=== PATIENT | female | born 1935 | race Caucasian/White ===

== ENCOUNTER → 2016-10-10 | Outpatient (CLI) | payer OTHER, MEDICARE ==
[2016-06-04 08:11] VITALS: BP 130/72
--- NOTE | 2016-10-12 17:36 | MRI ---
Lumbar spine MRI without contrast: Indication: Intravertebral disk disorder, left-sided low back pain with numbness and tingling. Comparison: Lumbar spine MRI dated March 16, 2014. Technique: Multiplanar, multi sequence MR imaging of the lumbar spine was performed without the use of contrast. Findings: No acute malalignment or acute skeletal abnormality is identified. A subtle L4-L5 anteroli sthesis is unchanged . The patient is again noted to be status post posterior fusion extending from L3 through L5. Susceptibility artifact from the hardware mildly limits evaluation. No worrisome bone marrow signal abnormality is identified. The conus is of normal signal and termina shaina at a normal level. Except for expected postoperative changes, the paravertebral soft tissues are unremarkable. T12-L1: Mild bilateral facet arthrosis. Otherwise, within normal limits. L1-L2: Interval worsening of severe degenerative disc disease. In combination with facet arthrosis a nd ligamentum flavum hypertrophy, this results in mild canal stenosis and moderate right neural fora emil narrowing. Mild left neural foraminal narrowing is present as well. L2-L3: Severe disk desiccation noted. There is also severe bilateral facet arthrosis. This is greate r on the left, where it contributes to mild canal stenosis and moderate neural foraminal narrowing. L3-L4: There is moderate to severe bilateral facet arthrosis without significant canal stenosis. No neural foraminal narrowing. L4-L5: There is moderate bilateral facet arthrosis, resulting in mild canal stenosis. There is no si gnificant neural foraminal narrowing. L5-S1: There is minimal bilateral facet arthrosis. No canal or neural foraminal narrowing is identif ied. Impression: Interval worsening of degenerative change at L1-L2 and L2-L3, resulting in mild canal st enosis and moderate areas of neural foraminal narrowing, detailed above. Reported By:
== END ==
LOC: RAD 13:01
PROVIDERS: ATTEND Internal Medicine
DX: M51.17 Intervertebral disc disorders with radiculopathy, lumbosacral region (principal)
CPT/HCPCS: 72148

== ENCOUNTER 2016-12-16 11:56 | Emergency (ER) | payer OTHER, MEDICARE ==
--- NOTE | 2016-12-16 12:05 | DR.GENAD ---
HPI - Source History Provided: Patient - Mode of Arrival Mode of Arrival: EMS - Timing Came on: Suddenly - Duration Duration: Constant How lon Duration: Hours - Location Location: right ribs and back and hip - Severity Severity: Moderate - Modifying Factors Worsens:: movement - Associated Signs and Symptoms Associated Signs and Symptoms: skin tear right leg PMH - PMH Past Medical History: Anemia, Anxiety, COPD, Depression, GERD, Hypothyroidism Past Surgical History: Yes Surgical History: Appendectomy, Hysterectomy, Mastectomy, Ortho Surgery, Tonsillectomy - Family History Family Medical History: Cancer, [place], Hypertension - Social History Do you use any recreational Drugs:: No ROS - Review of Systems Constitutional: No Symptoms Reported Eyes: No Symptoms Reported ENTM: No Symptoms Reported Respiratoy: No Symptoms Reported Cardiovascular: No Symptoms Reported Gastrointestinal/Abdominal: No Symptoms Reported Genitourinary: No Symptoms Reported Neurological: No Symptoms Reported Musculoskeletal: Back Pain, Rib(s) (right), Hip (right) Integumentary: Wound (skin tear) Endocrine: No Symptoms Reported Psychiatric: Depression PE - Vital Signs Vitals: Temperature 98.2 F Pulse Rate 73 Respiratory Rate 17 Blood Pressure [Right Arm] 137/65 Blood Pressure [Left Arm] 130/72 Blood Pressure 136/65 O2 Sat by Pulse Oximetry 95 - General Limitations: No Limitations General Appearance: Alert, In No Apparent Distress - Head Head Exam: Normal Inspection - Eyes Eye exam: Normal Appearance, EOMI. negative: Scleral Icterus, Conjunctival Injection - ENT ENT Exam: Normal Exam Mouth Exam: Normal Inspection - Neck Neck Exam: Normal Inspection, Other (in collar) - Chest Chest Inspection: Normal Inspection - Respiratory Respiratory Exam: Normal Lung Sounds Bilat. negative: Accessory Muscle Use, Respiratory Distress Respiratory Exam: Bilateral Clear to Auscultation - Cardiovascular Cardiovascular Exam: Regular Rate - Extremities Extremities Exam: Normal Inspection, Tenderness (right hip). negative: Full ROM - Back Back Exam: Normal Inspection, Tenderness. negative: Full ROM - Neurologic Neurological Exam: Alert, Oriented X3, CN II-XII Intact - Psychiatric Psychiatric Exam: Depressed - Skin Skin Exam: negative: Intact (6cm skin tear) ROR - Labs Reviewed Result Diagrams: 12/16/16 12:23 12/16/16 12:23 Laboratory: WBC 8.5 X10^3/uL (3.6-10.0) 12/16/16 12:23 RBC 4.15 X10^6/uL (3.5-5.4) 12/16/16 12:23 Hgb 13.1 g/dL (12.0-16.0) 12/16/16 12:23 Hct 38.4 % (36.0-47.0) 12/16/16 12:23 MCV 92.6 fL (80.0-100.0) 12/16/16 12:23 MCH 31.6 pg (27.0-34.0) 12/16/16 12:23 MCHC 34.1 g/dL (33.0-35.0) 12/16/16 12:23 RDW 13.7 % (11.6-16.5) 12/16/16 12:23 Plt Count 389 X10^3/uL (150.0-450.0) 12/16/16 12:23 MPV 8.1 fL (7.4-11.0) 12/16/16 12:23 Neut % 74.5 % (42.0-75.0) 12/16/16 12:23 Lymph % 13.2 % (21.0-51.0) L 12/16/16 12:23 [place] % 10.7 % (0.0-13.0) 12/16/16 12:23 Eos % 0.9 % (0.9-2.9) 12/16/16 12:23 Baso % 0.7 % (0.2-1.0) 12/16/16 12:23 Neut # 6.3 x10^3/uL (2.2-4.8) H 12/16/16 12:23 Lymph # 1.1 X10^3/uL (1.3-2.9) L 12/16/16 12:23 [place] # 0.9 x10^3/uL (0.3-0.8) H 12/16/16 12:23 Eos # 0.1 x10^3/uL (0.0-0.2) 12/16/16 12:23 Baso # 0.1 X10^3/uL (0.0-0.1) 12/16/16 12:23 Absolute Nucleated RBC 0.0 /100WBC 12/16/16 12:23 INR Target Range - 12/16/16 12:23 INR 1.42 (0.8-1.3) H 12/16/16 12:23 Sodium 140 mmol/L (136-145) 12/16/16 12:23 Corrected Sodium TNP 12/16/16 12:23 Potassium 4.5 mmol/L (3.5-5.1) 12/16/16 12:23 Chloride 103 mmol/L (98-107) 12/16/16 12:23 Carbon Dioxide 33.4 mmol/L (21-32) H 12/16/16 12:23 BUN 40 mg/dL (7-18) H 12/16/16 12:23 Creatinine 1.71 mg/dL (0.55-1.02) H 12/16/16 12:23 Est GFR (MDRD) Af Amer 37 (>60) L 12/16/16 12:23 Est GFR (MDRD) Non-Af 31 (>60) L 12/16/16 12:23 Glucose 86 mg/dL (65-99) 12/16/16 12:23 Calcium 8.6 mg/dL (8.5-10.1) 12/16/16 12:23 - XRAY XRAY Interpreted by: Radiologist XRAY Findings: neck,hip ribs: no fx - Diagnosis Discharge Problem: Contusion Qualifiers: Encounter type: initial encounter Contusion area: hip Laterality: right Qualified Code(s): S70.01XA - Contusion of right hip, initial encounter - Discharge Plan Condition: Stable - Follow ups/Referrals Follow ups/Referrals: Twan Redd [Primary Care Provider] - 3 days - Instructions
[2016-12-16 12:20] VITALS: BP 136/65; BMI 25.0
[2016-12-16 12:31] LABS: BASOPHILS # (AUTO) 0.1 X10^3/uL (0.0-0.1); BASOPHILS % (AUTO) 0.7 % (0.2-1.0); EOSINOPHILS # (AUTO) 0.1 x10^3/uL (0.0-0.2); EOSINOPHILS % (AUTO) 0.9 % (0.9-2.9); HEMATOCRIT 38.4 % (36.0-47.0); HEMOGLOBIN 13.1 g/dL (12.0-16.0); LYMPHOCYTES # (AUTO) 1.1 X10^3/uL (1.3-2.9); LYMPHOCYTES % (AUTO) 13.2 % (21.0-51.0); MEAN CORPUSCULAR HEMOGLOBIN 31.6 pg (27.0-34.0); MEAN CORPUSCULAR HGB CONC 34.1 g/dL (33.0-35.0); MEAN CORPUSCULAR VOLUME 92.6 fL (80.0-100.0); MEAN PLATELET VOLUME 8.1 fL (7.4-11.0); MONOCYTES # (AUTO) 0.9 x10^3/uL (0.3-0.8); MONOCYTES % (AUTO) 10.7 % (0.0-13.0); NEUTROPHILS # (AUTO) 6.3 x10^3/uL (2.2-4.8); NEUTROPHILS % (AUTO) 74.5 % (42.0-75.0); PLATELET COUNT 389 X10^3/uL (150.0-450.0); RED BLOOD COUNT 4.15 X10^6/uL (3.5-5.4); RED CELL DISTRIBUTION WIDTH 13.7 % (11.6-16.5); WHITE BLOOD COUNT 8.5 X10^3/uL (3.6-10.0)
[2016-12-16 12:37] LABS: BLOOD UREA NITROGEN 40 mg/dL (7-18); CALCIUM 8.6 mg/dL (8.5-10.1); CARBON DIOXIDE 33.4 mmol/L (21-32); CHLORIDE 103 mmol/L (98-107); CREATININE 1.71 mg/dL (0.55-1.02); GLUCOSE 86 mg/dL (65-99); SODIUM 140 mmol/L (136-145); eGFR BLACK RACES 37 (>60); eGFR NON BLACK RACES 31 (>60)
--- NOTE | 2016-12-16 12:48 | RAD ---
HISTORY: Injury, fall, right rib pain Study: Right ribs three view Comparison: None Findings: The patient is on a backboard. This decreases resolution particularly on the oblique view . The righ t ribs appear intact. No definite pneumothorax or pleural effusion is identified. IMPRESSION: Intact right ribs Reported By:
--- NOTE | 2016-12-16 12:49 | RAD ---
HISTORY: Injury, fall, right hip pain Study: Right hip two views, AP pelvis Comparison: None Findings: The patient is on a backboard. This decreases resolution to some extent. The pelvic bones and SI deneen nts appear well mineralized and intact. Osteitis pubis is present. The patient is status post left h ip arthroplasty in good position. The right hip joint is preserved. No joint erosions are noted. No fracture, lytic or blastic lesion is identified. IMPRESSION: No fracture identified Reported By:
--- NOTE | 2016-12-16 12:55 | RAD ---
HISTORY: Fall. Study: Three views of the cervical spine. Comparison: None. Findings: Straightening of the normal cervical lordosis, which may represent positioning versus muscle spasm. Moderate to severe disc space narrowing at C4 through C7 with associated endplate sclerosis and ante rior disc osteophyte complexes. No obvious acute fracture or listhesis. Multilevel uncovertebral hyp ertrophy. The visualized dens appears intact. The prevertebral soft tissues and lung apices appear n ormal. IMPRESSION: No obvious acute cervical pathology. Given mechanism of injury, CT cervical spine is mor e sensitive. Reported By:
== END 2016-12-16 13:21 | disposition home or self-care (01) ==
LOC: SUPCPDRO 11:56 → ER 12:10
DX: S70.01XA Contusion of right hip, initial encounter (principal); W19.XXXA Unspecified fall, initial encounter; Y92.009 Unspecified place in unspecified non-institutional (private) residence as the place of occurrence of the external cause
CPT/HCPCS: 36415; 71111; 72040; 73501; 80048; 85025; 85610; 99282; 99283

== ENCOUNTER → 2016-12-25 | Outpatient (CLI) | payer OTHER, MEDICARE ==
[2016-12-16 12:20] VITALS: BP 136/65
--- NOTE | 2016-12-25 14:14 | CT ---
HISTORY: Injury, fall, right hip pain Study: CT right hip without contrast Comparison: December 16, 2016 plain films Technique: Axial non contrast imaging with coronal and sagittal reformats. Dose reduction procedures were used with MA/kv adjusted for body size. Findings: Postsurgical changes are present at the lumbosacral junction. Bilateral facet degenerative joint dis ease is present at L5-S1. The right SI joint is normal. The right sacrum is intact. The pelvic bones on the right are intact. The right hip joint is intact as is the proximal femur. No periarticular s oft tissue abnormality is identified. No joint effusion is identified. IMPRESSION: No fracture identified No significant abnormality identified Reported By:
--- NOTE | 2016-12-25 14:28 | CT ---
HISTORY: Degenerative disc disease, right hip pain Study: CT lumbar spine without contrast Comparison: None Technique: Axial non contrast images with coronal and sagittal reformats. Dose reduction procedures were used with MA/kv adjusted for body size. Findings: The patient is status post L3, 4, 5, S1 fusion with hardware and disc spacers present. The bones are osteopenic. There is residual anterolisthesis of a mild degree L4 on L5. The alignment is otherwise normal. No compression fractures are identified. There is a fracture of the tip of the left transve rse process of L2. The remainder of the pedicles, posterior elements, and spinous processes are inta ct. Mild degenerative joint disease in the SI joints. The portions of the sacrum visualized are inta ct. The disc levels are evaluated as follows: L1-2 level. There is severe disc degeneration with vacuum phenomenon present. No compressive disc di sease is identified. The neural foramina are patent. Relatively severe facet degenerative joint dise ase is present. L2-3 level: There is severe disc degeneration with vacuum phenomenon present. Broad-based disk bulgi ng effaces the thecal sac and contributes along with spondylitic change and severe facet arthropathy to mild lateral recess narrowing on the right and moderate lateral recess and foraminal narrowing o n the left. L3-4 level: Status post fusion. No compressive disc disease. The neural foramina are patent. Severe facet arthropathy is present. L4-5 level: Status post fusion. Slight anterolisthesis L4 on L5 contributes along with facet arthrop athy and spondylitic change to mild lateral recess narrowing bilaterally peer E L5-S1 level: Status post fusion. Spondylitic change and facet arthropathy contributes to lateral rec ess and foraminal narrowing left worse than right. IMPRESSION: Fracture of the tip of the left transverse process of L2 Multiple postsurgical changes as described above. Evaluation of each disc level provided in detail for each level above Reported By:
== END ==
LOC: RAD 13:25
PROVIDERS: ATTEND Internal Medicine
DX: M51.17 Intervertebral disc disorders with radiculopathy, lumbosacral region (principal); M25.551 Pain in right hip
CPT/HCPCS: 72131; 73700

== ENCOUNTER → 2017-02-25 | Outpatient (CLI) | payer OTHER, MEDICARE ==
--- NOTE | 2017-02-26 12:38 | MRI ---
STUDY: MRI OF THE CERVICAL SPINE HISTORY: Cervical myelopathy. Chronic neck pain. Comparison: None. Technique: Multiplanar multisequence MRI of the cervical spine was obtained utilizing standard [facility] mental protocol. Sagittal T1, T2, T2 STIR, axial T1 and axial T2 weighted images of the cervical spin e were performed. Findings: Sagittal images: There is straightening of the usual cervical lordosis. There is subtle grade 1 anterolisthesis of C4 on C5. There is subtle retrolisthesis of C5 on C6. There is multilevel degenerative disc disease and degenerative endplate change. There is contouring of the cervical spinal cord at the C4/5 level. Ther e is no evidence of intrinsic signal abnormality. There appears to be some rotary subluxation of the C1 on C2. Axial images: C2 -- C3: Normal. C3 -- C4: There is a shallow disc osteophyte complex and bilateral uncovertebral osteophyte formation . There is left greater than right facet arthropathy. The central canal and right neural foramen are adequate. There is moderate left neural foraminal stenosis. C4 -- C5: There is a posterior disc osteophyte complex and bilateral uncovertebral osteophyte formati on. There is mild bilateral facet arthropathy. The combination of these findings results in moderate central canal stenosis. The right neural foramen is adequate. There is mild left neural foraminal radha nosis. C5 -- C6: There is a posterior disc osteophyte complex and bilateral uncovertebral osteophyte formati on. This results in mild to moderate central canal stenosis. There is mild bilateral neural foraminal stenosis at this level. C6 -- C7: There is a shallow disc osteophyte complex and bilateral uncovertebral osteophyte formation . There is a shallow disc osteophyte complex and bilateral uncovertebral osteophyte formation. This r esults in mild central canal stenosis. The neural foramina are adequate. C7 -- T1: Normal. IMPRESSION: 1. Multilevel cervical spondylosis. Grade 1 anterolisthesis of C4 on C5 and retrolisthesis of C5 on C 6. 2. Moderate central canal stenosis at C4/5. 3. Mild to moderate spinal stenosis at C5/6. 4. Moderate left neural foraminal stenosis at C3/4. Reported By:
--- NOTE | 2017-02-27 17:02 | MRI ---
History: Chronic right hip pain Technique: Multiplanar, multisequence MR imaging of the right hip was performed without IV contrast. Comparison: CT of the right hip dated 12/25/2016 Findings: Patient is status post left total hip arthroplasty demonstrated on the large [id number] coronal im ages through both hips. The visualized osseous structures demonstrate normal bone marrow signal without evidence of osteonecr osis, stress reaction, or stress fracture. There is moderate osteoarthrosis of the symphysis pubis. There is trace right hip joint fluid, within normal limits for physiologic volume. There is increasin g inversion of the acetabulum, with decreased center edge angle of approximately 20-21, suggesting u nder coverage of the femoral head and at least mild developmental dysplasia of the hip. There is a te ar of the superior labrum. There is moderate osteoarthrosis of the hip, with severe joint space narro wing posteriorly and spurring at the posterior femoral head best seen on axial PD fat-sat images, , w ith subcortical cystic changes in the posterior acetabulum. There is tendinosis of the gluteus minimus tendon, with a partial thickness tear. There is fatty atro phy of the right gluteus medius and minimus. Impression: 1. 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 2. Moderate right hip osteoarthrosis with severe joint space narrowing posteriorly, femoral head and acetabular spurring and subcortical cystic changes in the acetabulum. 3. Superior labral tear 4. Tendinosis and partial thickness tearing of the right gluteus minimus. There is severe fatty atrop hy of right gluteus minimus and medius. 5. Other findings as above Reported By:
== END | disposition home or self-care (01) | DRG 552 ==
LOC: RAD 09:44
PROVIDERS: ATTEND Neurological Surgery
DX: M47.12 Other spondylosis with myelopathy, cervical region (principal); M25.551 Pain in right hip; S73.191A Other sprain of right hip, initial encounter; X58.XXXA Exposure to other specified factors, initial encounter; M76.01 Gluteal tendinitis, right hip; M47.892 Other spondylosis, cervical region; M48.02 Spinal stenosis, cervical region
CPT/HCPCS: 72141; 72195

== ENCOUNTER 2017-05-01 11:01 | Inpatient (IN) | payer OTHER, MEDICARE ==
--- NOTE | 2017-05-01 11:19 | DR.SOBA ---
HPI - Time Seen Time seen: 11:15 - Primary Care Physician Primary Care Physician: LOUIE - HPI Comment HPI Comment: INCREASING SOB ABD PRODUCTIVE COUGH YELLOW SPUTUM TIMES ONE DAY. PATIENT HAVE GENERALIZE WEAKNESS AND CHEST PAIN PAIN ALSO. NO FEVER. - Complaints Chief Complaint Doctors Comments: COUGHN SOB AND RAPID HEART RATE. Chief Complaint:: PT. C/O SHORTNESS OF BREATH AND COUGH. PT. STATES SHE HAS BEEN COUGHING UP PHLEGM. - Reviewed Nurses Notes Reviewed: Yes - Source History Provided: Patient, Family Member - Mode of Arrival Mode of Arrival: Wheelchair - Timing Onset of Chief Complaint: 04/30/17 - Duration Duration: Days - Context Onset:: At Rest, With Light Exertion PE Risk Factors:: None Currently on:: Neither Prehospital Care:: None - Modifying Factors Worsens:: Exertion Improves:: Nothing - Associated Signs and Symptoms Associated Signs and Symptoms: Wheeze, Cough, Nasal Congestion, Chest Pain - If Chest Pain Quality: Sharp Location: Right Lower Chest, Left Lower Chest, Chest Wall - If Cough Cough: Productive, Yellow PMH - PMH Past Medical History: Yes Past Medical History: Anemia, Anxiety, COPD, Depression, GERD, Hypothyroidism, Sleep Apnea Past Medical History Comment: A-FIB Past Surgical History: Yes Surgical History: Appendectomy, Hysterectomy, Mastectomy, Ortho Surgery, Tonsillectomy - Family History History of Family Medical Conditions: Yes Family Medical History: Cancer, [place], Hypertension - Social History Does patient currently use any type of tobacco product: No Have you used tobacco products in the last 12 months: No Type of Tobacco Use: None Does any household member use tobacco: No Alcohol Use: None Do you use any recreational Drugs:: No Lives With: Family Lives Where: Home - infectious screening In the last 2 months have you had wt loss of >10#?: NO Have you had fever, night sweats or hemotysis?: No Have you traveled outside the country in the last 6 months?: No Isolation: Standard ROS - Review of Systems Constitutional: Malaise, Weakness, Fatigue, Loss of Appetite. negative: Chills , Fever Eyes: negative: Eye Pain, Discharge ENTM: Nose Discharge, Nose Congestion. negative: Ear Pain, Throat Pain Respiratoy: Productive Cough, Short of Breath, Wheezing. negative: Hemoptysis Cardiovascular: Chest Pain, Palpitations. negative: Edema Gastrointestinal/Abdominal: No Symptoms Reported Genitourinary: No Symptoms Reported Neurological: No Symptoms Reported Musculoskeletal: Muscle Pain Integumentary: No Symptoms Reported Hematologic/Lymphatic: No Symptoms Reported Endocrine: No Symptoms Reported All Other Systems: Reviewed and Negative PE - Vital Signs Vitals: Temperature 97.2 F Pulse Rate [Apical] 90 Pulse Rate 146 Respiratory Rate 26 Blood Pressure [Right Arm] 148/80 Blood Pressure [Left Arm] 162/82 Blood Pressure 119/64 O2 Sat by Pulse Oximetry 100 - General Limitations: No Limitations General Appearance: Alert - Head Head Exam: Normal Inspection - Eyes Eye exam: Normal Appearance - ENT ENT Exam: Normal External Ear Exam - Neck Neck Exam: Trachea Midline. negative: Tenderness, Meningismus, Lymphadenopathy - Chest Chest Inspection: Symmetric Chest Wall Rise - Respiratory Respiratory Exam: Normal Lung Sounds Bilat Respiratory Exam: Bilateral Wheezing, Bilateral Rhonchi, Upper Rhonchi, Lower Wheezing, Lower Rhonchi - Cardiovascular Cardiovascular Exam: Regular Rate, Normal Rhythm, Normal Heart Sounds - Abdominal Exam Abdominal Exam: Normal Bowel Sounds, Soft. negative: Tenderness - Extremities Extremities Exam: Normal Inspection - Back Back Exam: Normal Inspection - Neurologic Neurological Exam: Alert, Oriented X3 - Psychiatric Psychiatric Exam: Normal Affect, Normal Mood - Skin Skin Exam: Normal Color MDM - Additional Information Obtained Additional Information Obtained From: Family - Differential Diagnosis Differential Diagnosis: Bronchitis, CHF, Dysrhythmia, Hyponatremia, Mycardial Infarction, Pneumonia, Pneumothorax, Respiratory Insufficiency, URI Course - Treatment Treatment: SEE ORDERS. - Consultation Consultation Comments: DISCUSS PATIENT WITH DR. CHANDLER. HE WILL ADMIT PATIENT. - Education/Counseling Education/Counseling: Patient, Family, Education Educated On: Treatment, Diagnosis, Needs for Follow Up ROR - Labs Reviewed Laboratory Results Reviewed?: Yes Result Diagrams: 05/01/17 11:17 05/01/17 11:17 Laboratory: 05/01/17 11:30 Sputum - Expectorated Sputum - Final WBC 11.9 X10^3/uL (3.6-10.0) H 05/01/17 11:17 RBC 3.45 X10^6/uL (3.5-5.4) L 05/01/17 11:17 Hgb 12.3 g/dL (12.0-16.0) 05/01/17 11:17 Hct 36.3 % (36.0-47.0) 05/01/17 11:17 MCV 105.3 fL (80.0-100.0) H 05/01/17 11:17 MCH 35.7 pg (27.0-34.0) H 05/01/17 11:17 MCHC 33.9 g/dL (33.0-35.0) 05/01/17 11:17 RDW 21.4 % (11.6-16.5) H 05/01/17 11:17 Plt Count 685 X10^3/uL (150.0-450.0) H 05/01/17 11:17 Plt Count Comment Increased (ADEQUATE) A 05/01/17 11:17 MPV 8.6 fL (7.4-11.0) 05/01/17 11:17 Neut % 84.9 % (42.0-75.0) H 05/01/17 11:17 Lymph % 5.5 % (21.0-51.0) L 05/01/17 11:17 [place] % 7.9 % (0.0-13.0) 05/01/17 11:17 Eos % 0.8 % (0.9-2.9) L 05/01/17 11:17 Baso % 0.9 % (0.2-1.0) 05/01/17 11:17 Neut # 10.1 x10^3/uL (2.2-4.8) H 05/01/17 11:17 Lymph # 0.7 X10^3/uL (1.3-2.9) L 05/01/17 11:17 [place] # 0.9 x10^3/uL (0.3-0.8) H 05/01/17 11:17 Eos # 0.1 x10^3/uL (0.0-0.2) 05/01/17 11:17 Baso # 0.1 X10^3/uL (0.0-0.1) 05/01/17 11:17 Absolute Nucleated RBC 0.4 /100WBC 05/01/17 11:17 Plt Morphology Comment Normal (NORMAL) 05/01/17 11:17 RBC Morphology Abnormal (NORMAL) A 05/01/17 11:17 Anisocytosis 1+ A 05/01/17 11:17 Macrocytosis Slight A 05/01/17 11:17 Sodium 138 mmol/L (136-145) 05/01/17 11:17 Corrected Sodium 139 mmol/L (136-145) 05/01/17 11:17 Potassium 5.2 mmol/L (3.5-5.1) H 05/01/17 11:17 Chloride 99 mmol/L (98-107) 05/01/17 11:17 Carbon Dioxide 22.3 mmol/L (21-32) 05/01/17 11:17 BUN 35 mg/dL (7-18) H 05/01/17 11:17 Creatinine 2.05 mg/dL (0.55-1.02) H 05/01/17 11:17 Est GFR (MDRD) Af Amer 30 (>60) L 05/01/17 11:17 Est GFR (MDRD) Non-Af 25 (>60) L 05/01/17 11:17 Glucose 125 mg/dL (65-99) H 05/01/17 11:17 Lactic Acid 2.3 mmol/L (0.4-2.0) H 05/01/17 11:17 Calcium 9.9 mg/dL (8.5-10.1) 05/01/17 11:17 Corrected Calcium 10.6 mg/dL (8.5-10.1) H 05/01/17 11:17 Total Bilirubin 0.70 mg/dL (0.2-1.0) 05/01/17 11:17 AST 23 Units/L (15-37) 05/01/17 11:17 ALT 16 Units/L (12-78) 05/01/17 11:17 Alkaline Phosphatase 107 Units/L (46-116) 05/01/17 11:17 Creatine Kinase 24 Units/L (26-192) L 05/01/17 11:17 CK-MB (CK-2) 1.3 ng/mL (0-4.0) 05/01/17 11:17 CK/CKMB % Calc 5.4 % (<4) 05/01/17 11:17 Troponin I < 0.02 ng/mL (0-1.5) 05/01/17 11:17 C-Reactive Protein 46.30 mg/L (0-3.0) H 05/01/17 11:17 B-Natriuretic Peptide 784 pg/mL (0-79) H* 05/01/17 11:17 Total Protein 8.4 g/dL (6.4-8.2) H 05/01/17 11:17 Albumin 3.1 g/dL (3.4-5.0) L 05/01/17 11:17 Globulin 5.3 g/dL (2.5-4.5) H 05/01/17 11:17 Albumin/Globulin Ratio 0.6 Ratio (1.1-2.1) L 05/01/17 11:17 - XRAY XRAY Interpreted by: Radiologist XRAY Findings: REPORT DISCUSS WITH PATIENT AND HER FAMILY. - EKG Rhythm: Afib (RVR. EKG NOTED.) - Diagnosis Discharge Problem: Atrial fibrillation with RVR, Generalized weakness, COPD exacerbation Pneumonia Qualifiers: Pneumonia type: due to unspecified organism Laterality: bilateral Lung location : lower lobe of lung Qualified Code(s): J18.9 - Pneumonia, unspecified organism CHF (congestive heart failure) Qualifiers: Congestive heart failure type: combined Congestive heart failure chronicity: acute Qualified Code(s): I50.41 - Acute combined systolic (congestive) and diastolic (congestive) heart failure Bronchiectasis Qualifiers: Bronchiectasis type: with acute lower respiratory infection Qualified Code(s): J47.0 - Bronchiectasis with acute lower respiratory infection - Discharge Plan Disposition: 09 ADMITTED INPATIENT Condition: Stable - Follow ups/Referrals - Instructions
[2017-05-01 11:27] LABS: BASOPHILS # (AUTO) 0.1 X10^3/uL (0.0-0.1); BASOPHILS % (AUTO) 0.9 % (0.2-1.0); EOSINOPHILS # (AUTO) 0.1 x10^3/uL (0.0-0.2); EOSINOPHILS % (AUTO) 0.8 % (0.9-2.9); HEMATOCRIT 36.3 % (36.0-47.0); HEMOGLOBIN 12.3 g/dL (12.0-16.0); LYMPHOCYTES # (AUTO) 0.7 X10^3/uL (1.3-2.9); LYMPHOCYTES % (AUTO) 5.5 % (21.0-51.0); MEAN CORPUSCULAR HEMOGLOBIN 35.7 pg (27.0-34.0); MEAN CORPUSCULAR HGB CONC 33.9 g/dL (33.0-35.0); MEAN CORPUSCULAR VOLUME 105.3 fL (80.0-100.0); MEAN PLATELET VOLUME 8.6 fL (7.4-11.0); MONOCYTES # (AUTO) 0.9 x10^3/uL (0.3-0.8); MONOCYTES % (AUTO) 7.9 % (0.0-13.0); NEUTROPHILS # (AUTO) 10.1 x10^3/uL (2.2-4.8); NEUTROPHILS % (AUTO) 84.9 % (42.0-75.0); PLATELET COUNT 685 X10^3/uL (150.0-450.0); RED BLOOD COUNT 3.45 X10^6/uL (3.5-5.4); RED CELL DISTRIBUTION WIDTH 21.4 % (11.6-16.5); WHITE BLOOD COUNT 11.9 X10^3/uL (3.6-10.0)
--- NOTE | 2017-05-01 11:38 | RAD ---
Examination: Portable AP chest History: SOB Comparison reference 06/04/2016 Findings: Continued normal heart size. There is a diffuse opacity over the left lung but this is unch anged from previous examination and may represent soft tissue artifact. No consolidation, pneumothora x or pleural fluid. Impression: Probably no acute disease; see above. Follow-up standard PA and lateral views suggested f or more accurate evaluation as condition permits. Reported By:
[2017-05-01 11:52] LABS: PLATELET MORPHOLOGY COMMENT NORMAL (NORMAL)
[2017-05-01 11:53] LABS: ANISOCYTOSIS 1+
[2017-05-01 12:01] LABS: BLOOD UREA NITROGEN 35 mg/dL (7-18); CALCIUM 9.9 mg/dL (8.5-10.1); CARBON DIOXIDE 22.3 mmol/L (21-32); CHLORIDE 99 mmol/L (98-107); COR NA(FOR HYPERGLY) 139 mmol/L (136-145); CREATININE 2.05 mg/dL (0.55-1.02); SODIUM 138 mmol/L (136-145); TROPONIN I < 0.02 ng/mL (0-1.5); eGFR BLACK RACES 30 (>60); eGFR NON BLACK RACES 25 (>60)
[2017-05-01 12:05] LABS: ALANINE AMINOTRANSFERASE 16 Units/L (12-78); ALBUMIN 3.1 g/dL (3.4-5.0); ALKALINE PHOSPHATASE 107 Units/L (46-116); ASPARTATE AMINO TRANSFERASE 23 Units/L (15-37); CKMB % 5.4 % (<4); COR CA(FOR HYPOALB) 10.6 mg/dL (8.5-10.1); CREATINE KINASE 24 Units/L (26-192); CREATINE KINASE MB 1.3 ng/mL (0-4.0); TOTAL PROTEIN 8.4 g/dL (6.4-8.2)
[2017-05-01 12:49] LABS: B-TYPE NATRIURETIC PEPTIDE 784 pg/mL (0-79)
[2017-05-01] MEDS ORDERED: ROCEPHIN VIAL 1 GM 1 GM in NS 50 ML IV + SPIKE MINIBAG* 50 ML IV ONE (13:48)
[2017-05-01 14:00] LABS: C-REACTIVE PROTEIN 46.3 mg/L (0-3.0)
[2017-05-01 14:15] LABS: LACTIC ACID 2.3 mmol/L (0.4-2.0)
[2017-05-01] MEDS ORDERED: NS 1000 ML 1,000 ML ONE (14:19)
[2017-05-01] MEDS ORDERED: ROCEPHIN 1 GM IV PREMIX 1 GM/50 ML IV.SOLN. IV ONE (14:19)
[2017-05-01] MEDS: NS 1000 ML 1,000 ML IV SCH ×2 (14:25→15:39)
[2017-05-01] MEDS ORDERED: FIORICET TAB PO PRN (15:01)
[2017-05-01] MEDS ORDERED: PATIENT'S HOME MEDICATION (Alprazolam [Alprazolam] 1 TAB) PO PRN (15:01)
[2017-05-01 16:14] VITALS: BMI 21.7
[2017-05-01] MEDS ORDERED: LOPRESSOR INJ 5 MG AMP IVP PRN (16:18)
[2017-05-01] MEDS: XOPENEX 1.25 MG/3 ML NEBULE NEB SCH ×3 (16:26→21:23)
[2017-05-01] MEDS ORDERED: DUONEB 0.5 MG/3 MG NEB SCH (17:00)
[2017-05-01 17:31] LABS: CKMB % 6.5 % (<4); CREATINE KINASE 20 Units/L (26-192); CREATINE KINASE MB 1.3 ng/mL (0-4.0); TROPONIN I < 0.02 ng/mL (0-1.5)
[2017-05-01] MEDS: ROBITUSSIN DM PO SCH ×2 (17:50→21:05)
[2017-05-01] MEDS ORDERED: AMBIEN PO SCH (21:00)
[2017-05-01] MEDS ORDERED: SOTALOL HCL PO SCH (21:00)
[2017-05-01] MEDS ORDERED: PATIENT'S HOME MEDICATION (Cetirizine Hcl [Cetirizine Hcl] 10 MG) PO SCH (21:00)
[2017-05-01] MEDS: BETAPACE AF PO SCH (21:04)
[2017-05-01] MEDS: TUSSIONEX PENNKINETIC SUSP PO PRN (21:05)
[2017-05-01] MEDS: ZyrTEC TAB 10 MG PO SCH (21:05)
[2017-05-01] MEDS: XANAX PO SCH (21:05)
[2017-05-01] MEDS: VIBRAMYCIN 100 MG in NS 100 ML IV + SPIKE MINIBAG* 100 ML IV SCH (21:05)
[2017-05-01 21:16] LABS: BILIRUBIN,URINE NEGATIVE (NEGATIVE); BLOOD/HEMOGLOBIN,URINE NEGATIVE (NEGATIVE); GLUCOSE, URINE 1+ (NEGATIVE); KETONES,URINE 1+ (NEGATIVE); LEUKOCYTE ESTERASE ,URINE NEGATIVE (NEGATIVE); NITRITES,URINE NEGATIVE (NEGATIVE); PROTEIN,URINE 2+ (NEGATIVE); UROBILINOGEN,URINE NORMAL (NORMAL)
[2017-05-01 21:20] LABS: APPEARANCE,URINE HAZY (CLEAR); COLOR,URINE YELLOW (YELLOW)
[2017-05-01] MEDS: PULMICORT NEB TX 0.5 MG NEB SCH (21:23)
[2017-05-01 21:25] LABS: BACTERIA,URINE TRACE /HPF (NEGATIVE); MUCUS,URINE MODERATE /HPF (NEGATIVE); RBC,URINE NEGATIVE /HPF (NEGATIVE); SQUAMOUS EPITHELIAL CELL,UR MANY /HPF (NEGATIVE)
[2017-05-02 00:34] LABS: CREATINE KINASE 19 Units/L (26-192); TROPONIN I < 0.02 ng/mL (0-1.5)
[2017-05-02 00:53] LABS: CKMB % 5.8 % (<4); CREATINE KINASE MB 1.1 ng/mL (0-4.0)
[2017-05-02] MEDS: XOPENEX 1.25 MG/3 ML NEBULE NEB SCH ×4 (01:10→17:01)
[2017-05-02 05:24] LABS: BASOPHILS % (AUTO) 0.3 % (0.2-1.0); EOSINOPHILS % (AUTO) 0.2 % (0.9-2.9); HEMATOCRIT 31.1 % (36.0-47.0); HEMOGLOBIN 10.5 g/dL (12.0-16.0); LYMPHOCYTES # (AUTO) 0.7 X10^3/uL (1.3-2.9); LYMPHOCYTES % (AUTO) 8.2 % (21.0-51.0); MEAN CORPUSCULAR HEMOGLOBIN 35.8 pg (27.0-34.0); MEAN CORPUSCULAR HGB CONC 33.8 g/dL (33.0-35.0); MEAN CORPUSCULAR VOLUME 105.8 fL (80.0-100.0); MEAN PLATELET VOLUME 8.6 fL (7.4-11.0); MONOCYTES # (AUTO) 0.9 x10^3/uL (0.3-0.8); MONOCYTES % (AUTO) 10.1 % (0.0-13.0); NEUTROPHILS # (AUTO) 7.2 x10^3/uL (2.2-4.8); NEUTROPHILS % (AUTO) 81.2 % (42.0-75.0); PLATELET COUNT 536 X10^3/uL (150.0-450.0); RED BLOOD COUNT 2.94 X10^6/uL (3.5-5.4); RED CELL DISTRIBUTION WIDTH 21.4 % (11.6-16.5); WHITE BLOOD COUNT 8.9 X10^3/uL (3.6-10.0)
[2017-05-02 05:27] LABS: ALBUMIN 2.4 g/dL (3.4-5.0); CALCIUM 8.8 mg/dL (8.5-10.1); COR CA(FOR HYPOALB) 10.1 mg/dL (8.5-10.1); CREATININE 1.91 mg/dL (0.55-1.02); MAGNESIUM 1.8 mg/dL (1.7-2.9); TOTAL PROTEIN 6.9 g/dL (6.4-8.2)
[2017-05-02] MEDS: XANAX PO SCH (06:03)
[2017-05-02] MEDS: SYNTHROID 75 mcg TAB PO SCH (06:03)
[2017-05-02 06:07] LABS: ANISOCYTOSIS 1+; PLATELET MORPHOLOGY COMMENT NORMAL (NORMAL)
[2017-05-02] MEDS: PROTONIX TAB 40 MG PO SCH (08:27)
[2017-05-02] MEDS: ROBITUSSIN DM PO SCH ×4 (08:27→21:55)
[2017-05-02] MEDS: VIBRAMYCIN 100 MG in NS 100 ML IV + SPIKE MINIBAG* 100 ML IV SCH ×2 (08:27→21:55)
[2017-05-02] MEDS: ROCEPHIN 1 GM IV PREMIX 1 GM/50 ML IV.SOLN. IV SCH (08:27)
[2017-05-02] MEDS: XARELTO PO SCH (08:28)
[2017-05-02] MEDS: EFFEXOR XR 150 MG CAP PO SCH (08:28)
[2017-05-02] MEDS: BETAPACE AF PO SCH ×2 (08:28→21:55)
[2017-05-02] MEDS: VITAMIN D3 PO SCH (08:28)
[2017-05-02] MEDS: LOVAZA PO SCH (08:28)
[2017-05-02] MEDS ORDERED: FATTY ACIDS PO SCH (09:00)
[2017-05-02] MEDS ORDERED: PATIENT'S HOME MEDICATION (Venlafaxine Hcl [Venlafaxine Hcl Er] 150 MG) PO SCH (09:00)
[2017-05-02] MEDS ORDERED: PATIENT'S HOME MEDICATION (Meloxicam [Meloxicam] 7.5 MG) PO SCH (09:00)
[2017-05-02] MEDS ORDERED: PREDNISONE TAB 20 MG PO SCH (09:00)
[2017-05-02] MEDS ORDERED: PATIENT'S HOME MEDICATION (Rivaroxaban [Xarelto] 20 MG) PO SCH (09:00)
[2017-05-02] MEDS ORDERED: OMEGA PO SCH (09:00)
[2017-05-02] MEDS ORDERED: MOBIC TAB 15 MG PO SCH (09:00)
[2017-05-02] MEDS ORDERED: CHOLECALCIFEROL 800 UNIT PO SCH (09:00)
[2017-05-02] MEDS ORDERED: MAXZIDE 37.5/25 MG PO SCH (09:00)
[2017-05-02] MEDS ORDERED: [UNRECOGNIZED DRUG - OTHER] PO SCH (09:00)
[2017-05-02] MEDS ORDERED: LEVOTHYROXINE SODIUM 75 MCG PO SCH (09:00)
[2017-05-02] MEDS ORDERED: BIOTIN 5000 MCG PO SCH (09:00)
[2017-05-02] MEDS: PULMICORT NEB TX 0.5 MG NEB SCH ×2 (09:56→21:36)
[2017-05-02] MEDS: Atrovent NEB TX 0.02% NEB SCH ×2 (12:24→17:01)
[2017-05-02] MEDS ORDERED: NS 1000 ML 1,000 ML IV SCH (15:31)
[2017-05-02] MEDS: NS 1000 ML 1,000 ML IV SCH ×4 (15:32→23:17)
[2017-05-02] MEDS: ZyrTEC TAB 10 MG PO SCH (21:55)
[2017-05-03] MEDS: Atrovent NEB TX 0.02% NEB SCH ×4 (01:30→17:00)
[2017-05-03] MEDS: XOPENEX 1.25 MG/3 ML NEBULE NEB SCH ×4 (01:30→17:00)
[2017-05-03] MEDS: ROBITUSSIN DM PO SCH ×4 (02:45→21:00)
[2017-05-03 05:59] LABS: BASOPHILS # (AUTO) 0.1 X10^3/uL (0.0-0.1); BASOPHILS % (AUTO) 1.3 % (0.2-1.0); EOSINOPHILS % (AUTO) 0.3 % (0.9-2.9); HEMATOCRIT 28.5 % (36.0-47.0); HEMOGLOBIN 9.9 g/dL (12.0-16.0); LYMPHOCYTES # (AUTO) 0.7 X10^3/uL (1.3-2.9); LYMPHOCYTES % (AUTO) 8.3 % (21.0-51.0); MEAN CORPUSCULAR HEMOGLOBIN 36.7 pg (27.0-34.0); MEAN CORPUSCULAR HGB CONC 34.7 g/dL (33.0-35.0); MEAN CORPUSCULAR VOLUME 105.8 fL (80.0-100.0); MEAN PLATELET VOLUME 8.6 fL (7.4-11.0); MONOCYTES # (AUTO) 0.7 x10^3/uL (0.3-0.8); MONOCYTES % (AUTO) 7.8 % (0.0-13.0); NEUTROPHILS # (AUTO) 7.1 x10^3/uL (2.2-4.8); NEUTROPHILS % (AUTO) 82.3 % (42.0-75.0); PLATELET COUNT 439 X10^3/uL (150.0-450.0); WHITE BLOOD COUNT 8.7 X10^3/uL (3.6-10.0)
[2017-05-03 06:15] LABS: ALBUMIN 2.1 g/dL (3.4-5.0); CARBON DIOXIDE 25.5 mmol/L (21-32); COR CA(FOR HYPOALB) 9.5 mg/dL (8.5-10.1); CREATININE 1.54 mg/dL (0.55-1.02)
[2017-05-03] MEDS: SYNTHROID 75 mcg TAB PO SCH (06:26)
[2017-05-03 06:36] LABS: ANISOCYTOSIS 1+; HYPOCHROMASIA 1+; MICROCYTOSIS 1+; PLATELET MORPHOLOGY COMMENT NORMAL (NORMAL)
[2017-05-03] MEDS: BETAPACE AF PO SCH ×2 (09:23→21:00)
[2017-05-03] MEDS: XARELTO PO SCH (09:23)
[2017-05-03] MEDS: PROTONIX TAB 40 MG PO SCH (09:24)
[2017-05-03] MEDS: LOVAZA PO SCH (09:24)
[2017-05-03] MEDS: PREDNISONE TAB 20 MG PO SCH (09:24)
[2017-05-03] MEDS: ROCEPHIN 1 GM IV PREMIX 1 GM/50 ML IV.SOLN. IV SCH (09:25)
[2017-05-03] MEDS: EFFEXOR XR 150 MG CAP PO SCH (09:25)
[2017-05-03] MEDS: VITAMIN D3 PO SCH (09:25)
[2017-05-03] MEDS: VIBRAMYCIN 100 MG in NS 100 ML IV + SPIKE MINIBAG* 100 ML IV SCH ×2 (09:25→21:00)
[2017-05-03] MEDS: NS 1000 ML 1,000 ML IV SCH ×3 (09:25→17:02)
[2017-05-03] MEDS: PULMICORT NEB TX 0.5 MG NEB SCH (09:27)
[2017-05-03] MEDS: COREG TAB 12.5 MG PO SCH ×2 (10:42→21:00)
[2017-05-03] MEDS: ZyrTEC TAB 10 MG PO SCH (21:00)
[2017-05-04] MEDS: XOPENEX 1.25 MG/3 ML NEBULE NEB SCH ×4 (00:25→17:09)
[2017-05-04] MEDS: Atrovent NEB TX 0.02% NEB SCH ×4 (00:26→17:09)
[2017-05-04] MEDS: SYNTHROID 75 mcg TAB PO SCH (06:00)
[2017-05-04] MEDS: NS 1000 ML 1,000 ML IV SCH ×2 (06:00→12:05)
[2017-05-04 06:17] LABS: BASOPHILS % (AUTO) 0.6 % (0.2-1.0); EOSINOPHILS # (AUTO) 0.1 x10^3/uL (0.0-0.2); EOSINOPHILS % (AUTO) 1.2 % (0.9-2.9); HEMATOCRIT 26.8 % (36.0-47.0); HEMOGLOBIN 9.1 g/dL (12.0-16.0); LYMPHOCYTES # (AUTO) 0.8 X10^3/uL (1.3-2.9); LYMPHOCYTES % (AUTO) 12.2 % (21.0-51.0); MEAN CORPUSCULAR HEMOGLOBIN 36.3 pg (27.0-34.0); MEAN CORPUSCULAR HGB CONC 33.9 g/dL (33.0-35.0); MEAN CORPUSCULAR VOLUME 107.1 fL (80.0-100.0); MEAN PLATELET VOLUME 9.2 fL (7.4-11.0); MONOCYTES # (AUTO) 0.7 x10^3/uL (0.3-0.8); MONOCYTES % (AUTO) 10.8 % (0.0-13.0); NEUTROPHILS # (AUTO) 4.7 x10^3/uL (2.2-4.8); NEUTROPHILS % (AUTO) 75.2 % (42.0-75.0); PLATELET COUNT 395 X10^3/uL (150.0-450.0); RED BLOOD COUNT 2.51 X10^6/uL (3.5-5.4); RED CELL DISTRIBUTION WIDTH 21.4 % (11.6-16.5); WHITE BLOOD COUNT 6.2 X10^3/uL (3.6-10.0)
[2017-05-04 06:31] LABS: ALANINE AMINOTRANSFERASE 12 Units/L (12-78); ALKALINE PHOSPHATASE 63 Units/L (46-116); ASPARTATE AMINO TRANSFERASE 18 Units/L (15-37); BLOOD UREA NITROGEN 32 mg/dL (7-18); CALCIUM 8.3 mg/dL (8.5-10.1); CARBON DIOXIDE 24.7 mmol/L (21-32); CHLORIDE 111 mmol/L (98-107); COR CA(FOR HYPOALB) 9.9 mg/dL (8.5-10.1); CREATININE 1.25 mg/dL (0.55-1.02); SODIUM 142 mmol/L (136-145); TOTAL PROTEIN 5.7 g/dL (6.4-8.2); eGFR BLACK RACES 53 (>60); eGFR NON BLACK RACES 44 (>60)
--- NOTE | 2017-05-04 06:51 | RAD ---
Examination: Portable AP chest History: SOB Comparison reference 05/01/2017 Findings: Continued normal heart size. The lungs are essentially clear. Diffuse density projected ove r the lower lungs may be secondary to overlying soft tissues. There is no consolidation or pneumothor ax. Impression: No acute chest abnormality demonstrated. Reported By:
[2017-05-04 07:08] LABS: ANISOCYTOSIS 1+; PLATELET MORPHOLOGY COMMENT NORMAL (NORMAL)
[2017-05-04] MEDS: ROCEPHIN 1 GM IV PREMIX 1 GM/50 ML IV.SOLN. IV SCH (08:21)
[2017-05-04] MEDS: ROBITUSSIN DM PO SCH ×4 (08:21→21:38)
[2017-05-04] MEDS: PREDNISONE TAB 20 MG PO SCH (08:22)
[2017-05-04] MEDS: BETAPACE AF PO SCH ×2 (08:22→21:36)
[2017-05-04] MEDS: XARELTO PO SCH (08:22)
[2017-05-04] MEDS: COREG TAB 12.5 MG PO SCH ×2 (08:23→21:37)
[2017-05-04] MEDS: LOVAZA PO SCH (08:23)
[2017-05-04] MEDS: PROTONIX TAB 40 MG PO SCH (08:23)
[2017-05-04] MEDS: EFFEXOR XR 150 MG CAP PO SCH (08:23)
[2017-05-04] MEDS: VITAMIN D3 PO SCH (08:26)
[2017-05-04] MEDS: VIBRAMYCIN 100 MG in NS 100 ML IV + SPIKE MINIBAG* 100 ML IV SCH (09:00)
--- NOTE | 2017-05-04 09:16 | PCM.PROG ---
Progress Note - Progress Note for Day of Date: 05/04/17 - Subjective Subjective: WAS ADMITTED ON 05/01/17 FOR PNEUMONIA AND ACUTE COPD EXACERBATION. SHE WAS FOUND TO BE IN ATRIAL FIBRILLATION WITH RVR. SHE WAS GIVEN LOPRESSOR 5MG IVP IN THE ER AND CONVERTED TO NORMAL SINUS RHYTHM. TODAY, SHE IS ALERT AND ORIENTED, SITTING UP IN BED ON MORNING ROUNDS. SHE CONTINUES WITH COMPLAINTS OF SHORNTESS OF BREATH AND GENERALIZED WEAKNESS. ON EXAMINATION , HEART IS REGULAR IN RATE AND RHYTHM. SINUS RHYTHM IS SEEN ON THE ESL INSTRUCTIONAL ASSISTANT. LUNG SOUNDS ARE DIMINISHED THROUGHOUT. ABDOMEN IS ROUND, SOFT, AND NON- TENDER WITH NORMAL BOWEL SOUNDS NOTED IN ALL QUADRANTS. THERE IS GOOD MOVEMENT NOTED IN ALL EXTREMITIES. HER VITAL SIGNS THIS MORNING ARE 98.5-87-19-100%-144/ 81. ABNORMAL LAB VALUES INCLUDE THE FOLLOWING: RBC 2.51, HGB 9.1, HCT 26.8, CHLORIDE 111, BUN 32, CREATININE 1.25, GFR 44, CALCIUM 8.3, TOTAL BILI 0.10, TOTAL PROTEIN 5.7, ALBUMIN 2.0, A/G RATIO 0.5. SPUTUM CULTURE REPORTS GROWTH OF PSEUDOMONAS AERUGINOSA. GOOD SENSITIVITY TO CIPRO IS REPORTED. WE WILL DISCONTINUE THE DOXYCYCLINE AND ROCEPHIN AND START CIPRO 400MG IV Q12H TODAY. A CHEST XRAY WAS OBTAINED TODAY AND REPORTS DIFFUSE DENSITY PROJECTED OVER THE LOWER LUNGS MAY BE SECONDARY TO OVERLYING SOFT TISSUES. TODAY, WE PLAN TO OBTAIN AN ECHOCARDIOGRAM. WE WILL START ALBUMIN 25GM IV DAILY FOR PROTEIN DEFICIENCY AND HEMOCYTE-PLUS 1 CAPSULE DAILY FOR ANEMIA. OTHERWISE, WE WILL CONTINUE TO MONITOR PATIENT. WE PLAN TO FOLLOW UP WITH AM LABS AND CHEST XRAY. - Past Medical Family Social History Past Med/Fam/Surg Hx: No changes since H&P Allergies: Allergies No Known Drug Allergies Allergy (Verified 12/16/16 12:05) - Review of Systems ROS: No change since H&P - Vital Signs and I&O's Vital Signs: Temperature 98.5 F Pulse Rate [Apical] 75 Pulse Rate 87 Respiratory Rate 19 Blood Pressure [Right Arm] 132/73 Blood Pressure [Left Arm] 144/81 Blood Pressure 128/68 O2 Sat by Pulse Oximetry 97 Intake and Output: Intake & Output 05/01/17 05/02/17 05/03/17 05/04/17 11:59 11:59 11:59 11:59 Intake Total 1160 3012 2577 Output Total 500 Balance 660 3012 2577 - Physical Exam Oriented: Normal Eyes: Normal. negative: Blurred Vision, Diplopia, Discharge, Pain, Redness, Photophobia, Other Ear: Normal. negative: Right, Left, Swelling, Ecchymosis, Hemotypanum, Abrasion , Laceration Nose: Normal. negative: Injected, Discharge, Blood, Other Throat: Normal. negative: Tonsillar Hypertrophy, Red, Exudate, Dry, Other Respiratory: Generalized, Diminished Cardiovascular: Normal. negative: Tachycardia, Bradycardia, Irregular, S3, S4, Systolic, Diastolic, Murmur, Edema, Other : Normal. negative: Dysuria, Hematuria, Frequency, Discharge, Testicular Pain , Bleeding, , Other Auscultation: Bowel Sounds: Normal. negative: Bruit, Absent, Increased, Decreased, High Pitched, Other Palpation: Normal. negative: Spleen Enlarged, Liver Enlarged, Mass Pulsatile, Other Tenderness: Normal. negative: Diffuse, RUQ, RLQ, LUQ, LLQ, Epigastric, Periumbilical, Suprapubic, Mild, Moderate, Severe, Rebound, Guarding, Rigidity, Other Skin: Normal. negative: Decreased Turgur, Rash, Papular, Macular, Maculopapular , Vesicular, Pustular, Petechial, Red, Tender, Hot, Diaphoresis, Wound, Bruising , Ecchymosis, Other Musculoskeletal: Normal. negative: Right, Left, Shoulder, Clavicle, Arm, Elbow , Forearm, Wrist, Hand, Hip, Thigh, Knee, Leg, Ankle, Foot, Back:Thoracic, Back: Lumbar, Back:Midline, Back:Paraspinous, Pelvis, Swelling, Tender, Deformity, Pulse Deficit, Motor Deficit, Sensory Deficit, Instability, Crepitance Psychiatric: Normal. negative: Anxiety, Depression, Agitation, Other Mood Description: Calm. negative: Angry, Apathetic, Depressed, Fearful, Flat, Happy, Hostile, Sad, Suspicious, Withdrawn, Anxious, Appropriate, Labile Affect: Normal Speech Pattern: Clear, Appropriate - Laboratory and Diagnostics Result Diagrams: 05/04/17 03:55 05/04/17 03:55 Labs: 05/01/17 11:30 Sputum - Expectorated Sputum Sputum Culture - Final Pseudomonas Aeruginosa 05/01/17 11:30 Sputum - Expectorated Sputum - Final 05/01/17 14:12 Blood Blood Culture - Preliminary 05/01/17 14:00 Blood Blood Culture - Preliminary Laboratory WBC 6.2 X10^3/uL (3.6-10.0) 05/04/17 03:55 RBC 2.51 X10^6/uL (3.5-5.4) L 05/04/17 03:55 Hgb 9.1 g/dL (12.0-16.0) L 05/04/17 03:55 Hct 26.8 % (36.0-47.0) L 05/04/17 03:55 MCV 107.1 fL (80.0-100.0) H 05/04/17 03:55 MCH 36.3 pg (27.0-34.0) H 05/04/17 03:55 MCHC 33.9 g/dL (33.0-35.0) 05/04/17 03:55 RDW 21.4 % (11.6-16.5) H 05/04/17 03:55 Plt Count 395 X10^3/uL (150.0-450.0) 05/04/17 03:55 Plt Count Comment Adequate (ADEQUATE) 05/04/17 03:55 MPV 9.2 fL (7.4-11.0) 05/04/17 03:55 Neut % 75.2 % (42.0-75.0) H 05/04/17 03:55 Lymph % 12.2 % (21.0-51.0) L 05/04/17 03:55 Zavala % 10.8 % (0.0-13.0) 05/04/17 03:55 Eos % 1.2 % (0.9-2.9) 05/04/17 03:55 Baso % 0.6 % (0.2-1.0) 05/04/17 03:55 Neut # 4.7 x10^3/uL (2.2-4.8) 05/04/17 03:55 Lymph # 0.8 X10^3/uL (1.3-2.9) L 05/04/17 03:55 Zavala # 0.7 x10^3/uL (0.3-0.8) 05/04/17 03:55 Eos # 0.1 x10^3/uL (0.0-0.2) 05/04/17 03:55 Baso # 0.0 X10^3/uL (0.0-0.1) 05/04/17 03:55 Absolute Nucleated RBC 0.3 /100WBC 05/04/17 03:55 Plt Morphology Comment Normal (NORMAL) 05/04/17 03:55 RBC Morphology Abnormal (NORMAL) A 05/04/17 03:55 Hypochromasia 1+ A 05/03/17 05:13 Anisocytosis 1+ A 05/04/17 03:55 Microcytosis 1+ A 05/03/17 05:13 Macrocytosis 1+ A 05/04/17 03:55 Sodium 142 mmol/L (136-145) 05/04/17 03:55 Corrected Sodium TNP 05/04/17 03:55 Potassium 4.3 mmol/L (3.5-5.1) 05/04/17 03:55 Chloride 111 mmol/L (98-107) H 05/04/17 03:55 Carbon Dioxide 24.7 mmol/L (21-32) 05/04/17 03:55 BUN 32 mg/dL (7-18) H 05/04/17 03:55 Creatinine 1.25 mg/dL (0.55-1.02) H 05/04/17 03:55 Est GFR (MDRD) Af Amer 53 (>60) L 05/04/17 03:55 Est GFR (MDRD) Non-Af 44 (>60) L 05/04/17 03:55 Glucose 81 mg/dL (65-99) 05/04/17 03:55 Lactic Acid 2.3 mmol/L (0.4-2.0) H 05/01/17 11:17 Calcium 8.3 mg/dL (8.5-10.1) L 05/04/17 03:55 Corrected Calcium 9.9 mg/dL (8.5-10.1) 05/04/17 03:55 Magnesium 1.8 mg/dL (1.7-2.9) 05/02/17 04:45 Iron 67 ug/dL (50-175) 05/02/17 04:45 Transferrin 209 mg/dL (202-364) 05/02/17 04:45 Ferritin 92 ng/mL (8-252) 05/02/17 04:45 Total Bilirubin 0.10 mg/dL (0.2-1.0) L 05/04/17 03:55 AST 18 Units/L (15-37) 05/04/17 03:55 ALT 12 Units/L (12-78) 05/04/17 03:55 Alkaline Phosphatase 63 Units/L (46-116) 05/04/17 03:55 Creatine Kinase 19 Units/L (26-192) L 05/01/17 23:50 CK-MB (CK-2) 1.1 ng/mL (0-4.0) 05/01/17 23:50 CK/CKMB % Calc 5.8 % (<4) 05/01/17 23:50 Troponin I < 0.02 ng/mL (0-1.5) 05/01/17 23:50 C-Reactive Protein 46.30 mg/L (0-3.0) H 05/01/17 11:17 B-Natriuretic Peptide 784 pg/mL (0-79) H* 05/01/17 11:17 Total Protein 5.7 g/dL (6.4-8.2) L 05/04/17 03:55 Albumin 2.0 g/dL (3.4-5.0) L 05/04/17 03:55 Globulin 3.7 g/dL (2.5-4.5) 05/04/17 03:55 Albumin/Globulin Ratio 0.5 Ratio (1.1-2.1) L 05/04/17 03:55 Vitamin B12 1831 pg/mL (193-986) H 05/02/17 04:45 Folate 12.2 ng/mL (>8.6) 05/02/17 04:45 Specimen Type Clean catch urine 05/01/17 21:04 Urine Color Yellow (YELLOW) 05/01/17 21:04 Urine Appearance Hazy (CLEAR) 05/01/17 21:04 Urine pH 5.0 (5.0 - 8.0) 05/01/17 21:04 Ur Specific [place] 1.015 (1.000-1.030) 05/01/17 21:04 Urine Protein 2+ (NEGATIVE) 05/01/17 21:04 Urine Glucose (UA) 1+ (NEGATIVE) 05/01/17 21:04 Urine Ketones 1+ (NEGATIVE) 05/01/17 21:04 Urine Occult Blood Negative (NEGATIVE) 05/01/17 21:04 Urine Nitrite Negative (NEGATIVE) 05/01/17 21:04 Urine Bilirubin Negative (NEGATIVE) 05/01/17 21:04 Urine Urobilinogen Normal (NORMAL) 05/01/17 21:04 Ur Leukocyte Esterase Negative (NEGATIVE) 05/01/17 21:04 Urine RBC Negative /HPF (NEGATIVE) 05/01/17 21:04 Urine WBC Rare /HPF (NEGATIVE) 05/01/17 21:04 Ur Squamous Epith Cells Many /HPF (NEGATIVE) 05/01/17 21:04 Urine Bacteria Trace /HPF (NEGATIVE) 05/01/17 21:04 Urine Mucus Moderate /HPF (NEGATIVE) 05/01/17 21:04 Ur Culture Indicated? No/not indicated 05/01/17 21:04 - Plan (1) COPD exacerbation Status: Acute Plan: CONTINUE IV ABX, RESPIRATORY TREATMENTS, CONTINUE TO MONITOR (2) Pneumonia Status: Acute Qualifiers: Pneumonia type: due to Pseudomonas Laterality: bilateral Lung location: lower lobe of lung Qualified Code(s): J15.1 - Pneumonia due to Pseudomonas Plan: START CIPRO 400MG IV Q12H, CONTINUE RESP TX, CONTINUE SUPPLEMENTAL OXYGEN , CONTINUE TO MONITOR (3) Anemia Status: Acute Qualifiers: Anemia type: iron deficiency Iron deficiency anemia type: inadequate dietary iron intake Qualified Code(s): D50.8 - Other iron deficiency anemias Plan: START HEMOCYTE PLUS DAILY, CONTINUE TO MONITOR (4) Hypoproteinemia Status: Acute Plan: ALBUMIN 25GM IV DAILY, CONTINUE TO MONITOR (5) Hypothyroidism Status: Chronic Qualifiers: Hypothyroidism type: acquired Qualified Code(s): E03.9 - Hypothyroidism, unspecified Plan: CONTINUE SYNTHROID, CONTINUE TO MONITOR (6) GERD (gastroesophageal reflux disease) Status: Chronic Qualifiers: Esophagitis presence: esophagitis presence not specified Qualified Code(s) : K21.9 - Gastro-esophageal reflux disease without esophagitis Plan: CONTINUE PROTONIX, CONTINUE TO MONITOR (7) Depression Status: Chronic Qualifiers: Depression Type: major depressive disorder Major depression recurrence: recurrent Active/Remission status: remission status unspecified Qualified Code(s): F33.9 - Major depressive disorder, recurrent, unspecified Plan: CONTINUE EFFEXOR, CONTINUE TO MONITOR (8) Atrial fibrillation Status: Chronic Qualifiers: Atrial fibrillation type: chronic Qualified Code(s): I48.2 - Chronic atrial fibrillation Plan: CONTINUE XARELTO, CONTINUE SOTALOL, CONTINUE TO MONITOR
[2017-05-04] MEDS: ALBUMIN HUMAN 25%- 100ML 100 ML IV SCH (10:11)
[2017-05-04] MEDS: CIPRO IV 400 MG PREMIX* 400 MG/200 ML IV.SOLN. IV SCH ×2 (10:12→21:38)
[2017-05-04] MEDS: HEMOCYTE-PLUS PO SCH (10:12)
[2017-05-04] MEDS: PULMICORT NEB TX 0.5 MG NEB SCH ×2 (11:51→21:09)
[2017-05-04] MEDS: ZyrTEC TAB 10 MG PO SCH (21:37)
[2017-05-05] MEDS: TUSSIONEX PENNKINETIC SUSP PO PRN (00:39)
[2017-05-05] MEDS: Atrovent NEB TX 0.02% NEB SCH ×4 (01:05→12:37)
[2017-05-05] MEDS: XOPENEX 1.25 MG/3 ML NEBULE NEB SCH ×3 (01:06→12:37)
[2017-05-05] MEDS: NS 1000 ML 1,000 ML IV SCH (05:30)
[2017-05-05 06:15] LABS: BASOPHILS % (AUTO) 0.5 % (0.2-1.0); EOSINOPHILS # (AUTO) 0.1 x10^3/uL (0.0-0.2); EOSINOPHILS % (AUTO) 1.7 % (0.9-2.9); HEMATOCRIT 25.7 % (36.0-47.0); HEMOGLOBIN 8.9 g/dL (12.0-16.0); LYMPHOCYTES # (AUTO) 0.9 X10^3/uL (1.3-2.9); LYMPHOCYTES % (AUTO) 13.1 % (21.0-51.0); MEAN CORPUSCULAR HGB CONC 34.8 g/dL (33.0-35.0); MEAN CORPUSCULAR VOLUME 106.5 fL (80.0-100.0); MEAN PLATELET VOLUME 8.6 fL (7.4-11.0); MONOCYTES # (AUTO) 0.7 x10^3/uL (0.3-0.8); MONOCYTES % (AUTO) 10.9 % (0.0-13.0); NEUTROPHILS # (AUTO) 5.1 x10^3/uL (2.2-4.8); NEUTROPHILS % (AUTO) 73.8 % (42.0-75.0); PLATELET COUNT 389 X10^3/uL (150.0-450.0); RED BLOOD COUNT 2.41 X10^6/uL (3.5-5.4); WHITE BLOOD COUNT 6.9 X10^3/uL (3.6-10.0)
[2017-05-05] MEDS: SYNTHROID 75 mcg TAB PO SCH (06:17)
[2017-05-05 06:37] LABS: ALANINE AMINOTRANSFERASE 18 Units/L (12-78); ALBUMIN 2.4 g/dL (3.4-5.0); ALKALINE PHOSPHATASE 65 Units/L (46-116); ASPARTATE AMINO TRANSFERASE 17 Units/L (15-37); BLOOD UREA NITROGEN 29 mg/dL (7-18); CALCIUM 8.2 mg/dL (8.5-10.1); CARBON DIOXIDE 26.9 mmol/L (21-32); CHLORIDE 109 mmol/L (98-107); COR CA(FOR HYPOALB) 9.5 mg/dL (8.5-10.1); SODIUM 142 mmol/L (136-145); TOTAL PROTEIN 5.9 g/dL (6.4-8.2); eGFR BLACK RACES 47 (>60); eGFR NON BLACK RACES 38 (>60)
[2017-05-05 07:02] LABS: ANISOCYTOSIS 1+; PLATELET MORPHOLOGY COMMENT NORMAL (NORMAL)
[2017-05-05] MEDS: ALBUMIN HUMAN 25%- 100ML 100 ML IV SCH (09:10)
[2017-05-05] MEDS: ROBITUSSIN DM PO SCH ×2 (09:11→13:45)
[2017-05-05] MEDS: CIPRO IV 400 MG PREMIX* 400 MG/200 ML IV.SOLN. IV SCH (09:11)
[2017-05-05] MEDS: BETAPACE AF PO SCH (09:11)
[2017-05-05] MEDS: XARELTO PO SCH (09:11)
[2017-05-05] MEDS: COREG TAB 12.5 MG PO SCH (09:11)
[2017-05-05] MEDS: VITAMIN D3 PO SCH (09:11)
[2017-05-05] MEDS: LOVAZA PO SCH (09:11)
[2017-05-05] MEDS: PROTONIX TAB 40 MG PO SCH (09:12)
[2017-05-05] MEDS: EFFEXOR XR 150 MG CAP PO SCH (09:12)
[2017-05-05] MEDS: PREDNISONE TAB 20 MG PO SCH (09:12)
[2017-05-05] MEDS: HEMOCYTE-PLUS PO SCH (09:12)
[2017-05-05] MEDS: PULMICORT NEB TX 0.5 MG NEB SCH (10:16)
[2017-05-05 13:08] VITALS: BP 148/81
== END 2017-05-05 14:50 | disposition home or self-care (01) | DRG 190 ==
LOC: ER 11:10 → ICU 14:52 → MED/SURG 05-04 10:30
PROVIDERS: ADMIT Obstetrics & Gynecology Obstetrics; ATTEND Internal Medicine
DX: J44.1 Chronic obstructive pulmonary disease with (acute) exacerbation (principal); J15.1 Pneumonia due to Pseudomonas; I50.41 Acute combined systolic (congestive) and diastolic (congestive) heart failure; F33.8 Other recurrent depressive disorders; E86.0 Dehydration; I48.2 Chronic atrial fibrillation; R06.02 Shortness of breath; K21.9 Gastro-esophageal reflux disease without esophagitis; E03.8 Other specified hypothyroidism; F41.8 Other specified anxiety disorders; R53.1 Weakness; R94.31 Abnormal electrocardiogram [ECG] [EKG]; K59.09 Other constipation; D50.8 Other iron deficiency anemias
CPT/HCPCS: 36415; 71010; 80053; 81001; 82550; 82553; 82607; 82728; 82746; 83540; 83605; 83735; 83880; 84425; 84466; 84484; 85025; 86140; 87040; 87070; 87077; 87186; 87205; 93005; 93306; 94640; 94760; 96365; 96374; 99284; A4216; A4222; P9047; J0696; J0744; J3490; J7506; J7626; J7644

== ENCOUNTER 2017-08-03 09:10 | Inpatient (IN) | payer OTHER, MEDICARE ==
[2017-08-03 09:19] VITALS: BMI 24.7
--- NOTE | 2017-08-03 10:02 | DR.FBACK ---
HPI - Time Seen Time seen: 09:40 - PCP Primary Care Physician: LOUIE ALVAREZ - HPI Comment HPI Comment: RECENTLY, FALLING FREQUENTLY. - Complaint Chief Complaint Doctor Comments: FELL ON THE GROUND FOR SOME TIME. HAVE NECK, BACK AND RT SHOULDER PAIN. SHE IS WEAK AND DIZZY. NO FEVER. Chief Complaint:: PTS FAMILY C/O THAT FALLING ON THURSDAY AND PT DID NOT HAVE HER ALERT BRACELET AND PTS FAMILY FOUND IN THE FLOOR BY HER BED AROUND 6PM AND PT IS C/O RIGHT SHOULDER AND BACK , AND NECK PAIN - Reviewed Nurses Notes Review: Yes - Source History Provided: Patient, Family Member - Mode of Arrival Mode of Arrival: Wheelchair - Timing Onset of Chief Complaint: 07/29/17 - Duration Duration: Constant Duration: Days - Location Back Pain Location: Left, Right, Upper, Lower, BACK, Lumbar, Cervical, Thoracic Radiation To: None - Severity Severity: Moderate - Quality Quality: Sharp - Context Onset: Fall Circumstance: Fall History of: Chronic Back Pain - Modifying Factors Worsened By: Movement, Twisting - Associated Signs and Symptoms Back Pain Symptoms: None Numbness: Lower back Weakness: None PMH - PMH Past Medical History: Yes Past Medical History: Anemia, Anxiety, COPD, Depression, GERD, Hypothyroidism, Sleep Apnea Past Surgical History: Yes Surgical History: Appendectomy, Hysterectomy, Mastectomy, Ortho Surgery, Tonsillectomy - Family History History of Family Medical Conditions: Yes Family Medical History: Cancer, SC, Hypertension - Social History Does patient currently use any type of tobacco product: No Have you used tobacco products in the last 12 months: No Type of Tobacco Use: None Does any household member use tobacco: No Do you use any recreational Drugs:: No Lives With: Family Lives Where: Home - infectious screening In the last 2 months have you had wt loss of >10#?: NO Have you had fever, night sweats or hemotysis?: No Have you traveled outside the country in the last 6 months?: No Isolation: Standard ROS - Review of Systems Constitutional: Weakness, Fatigue. negative: Chills, Fever Eyes: No Symptoms Reported ENTM: negative: Ear Pain, Nose Discharge, Nose Congestion, Throat Pain Respiratoy: Productive Cough, Short of Breath. negative: Wheezing, Hemoptysis Cardiovascular: Chest Pain Gastrointestinal/Abdominal: No Symptoms Reported Genitourinary: No Symptoms Reported Neurological: Weakness Musculoskeletal: Back Pain, Muscle Pain, Right, Elbow Integumentary: Other (ABRASION RT ELBOW HEALING ) Hematologic/Lymphatic: Easy Bleeding, Easy Bruising Endocrine: No Symptoms Reported All Other Systems: Reviewed and Negative PE - Vitals Vital Signs: Temp Pulse Pulse Pulse Resp BP BP 08/05/17 01:07 166 H 08/05/17 00:00 97.6 F 125 H 28 H 08/04/17 20:15 141 H 08/04/17 20:00 97.5 F L 101 H 32 H 08/04/17 15:39 97.4 F L 103 H 32 H 08/04/17 12:00 97.9 F 92 H 20 159/93 08/04/17 08:00 97.7 F 79 20 171/86 08/04/17 07:40 97.7 F 79 20 08/04/17 04:00 97.6 F 81 20 136/60 08/04/17 00:00 98.1 F 79 18 08/03/17 20:00 98.4 F 84 19 08/03/17 16:00 98.6 F 70 22 89/54 08/03/17 13:45 114 H 20 99/56 08/03/17 13:25 140 H 22 81/49 08/03/17 13:15 134 H 20 111/59 08/03/17 10:17 140/70 08/03/17 09:12 96.2 F L 105 H 18 84/51 05/05/17 12:00 148/81 05/04/17 08:00 132/66 BP Pulse Ox 08/05/17 01:07 79 L 08/05/17 00:00 160/90 95 08/04/17 20:15 92 L 08/04/17 20:00 184/94 95 08/04/17 15:39 176/94 97 08/04/17 12:00 99 08/04/17 08:00 96 08/04/17 07:40 171/86 96 08/04/17 04:00 96 08/04/17 00:00 122/63 95 08/03/17 20:00 94/55 96 08/03/17 16:00 97 08/03/17 13:45 114 H 08/03/17 13:25 93 L 08/03/17 13:15 93 L 03/19/18 10:17 08/03/17 09:12 97 05/05/17 12:00 148/81 05/04/17 08:00 - General Limitations: No Limitations General Appearance: Alert - Head Head Exam: Normal Inspection - Eyes Eye exam: Normal Appearance - ENT ENT Exam: Normal External Ear Exam - Chest Chest Inspection: Symmetric Chest Wall Rise - Respiratory Respiratory Exam: Prolonged Expiratory Phase Respiratory Exam: Left Rhonchi, Right Rhonchi, Upper Rhonchi, Lower Wheezing, Lower Rhonchi - Cardiovascular Cardiovascular Exam: Regular Rate, Normal Rhythm - Abdominal Exam Abdominal Exam: Normal Bowel Sounds, Soft. negative: Tenderness - Genitourinary External Exam: Female: Deferred : Speculum Exam (Female): Deferred : Bimanual Exam (female): Deferred - Extremities Extremities Exam: Tenderness (RT ELBOW SWOLLEN AND TENDER. DECREASE ROM.) - Back Back Exam: Vertebral Tenderness (TENDERNESS NECK, UPPER AND LOWER BACK.) - Neurological Neurological Exam: Alert, Oriented X3 - Skin Skin Exam: Normal Color MDM - Additional Information Additional Information Obtained From: Family - Differential Diagnosis Differential Diagnosis: DJD, Fracture, Musculoskeletal Pain, Pyelonephritis ( CHEST PAIN, SC, HYPOTENSION), Strain Course - Treatment Treatment: SEE ORDERS. - Education/Counseling Education/Counseling: Patient, Family, Education Educated On: Diagnosis ROR - Labs Reviewed Laboratory Results Reviewed?: Yes Result Diagrams: 08/05/17 05:46 08/05/17 05:46 Laboratory: 08/04/17 21:06 Elbow - Right Gram Stain - Final WBC 9.7 X10^3/uL (3.6-10.0) 08/05/17 05:46 RBC 2.66 X10^6/uL (3.5-5.4) L 08/05/17 05:46 Hgb 10.0 g/dL (12.0-16.0) L 08/05/17 05:46 Hct 28.7 % (36.0-47.0) L 08/05/17 05:46 MCV 108.1 fL (80.0-100.0) H 08/05/17 05:46 MCH 37.5 pg (27.0-34.0) H 08/05/17 05:46 MCHC 34.6 g/dL (33.0-35.0) 08/05/17 05:46 RDW 14.3 % (11.6-16.5) 08/05/17 05:46 Plt Count 283 X10^3/uL (150.0-450.0) 08/05/17 05:46 Plt Count Comment Adequate (ADEQUATE) 08/05/17 05:46 MPV 7.9 fL (7.4-11.0) 08/05/17 05:46 Neut % (Auto) 96.0 % (42.0-75.0) H 08/05/17 05:46 Lymph % (Auto) 2.1 % (21.0-51.0) L 08/05/17 05:46 Bates % (Auto) 1.7 % (0.0-13.0) 08/05/17 05:46 Eos % (Auto) 0.1 % (0.9-2.9) L 08/05/17 05:46 Baso % (Auto) 0.1 % (0.2-1.0) L 08/05/17 05:46 Neut # (Auto) 9.3 x10^3/uL (2.2-4.8) H 08/05/17 05:46 Lymph # (Auto) 0.2 X10^3/uL (1.3-2.9) L 08/05/17 05:46 Bates # (Auto) 0.2 x10^3/uL (0.3-0.8) L 08/05/17 05:46 Eos # (Auto) 0.0 x10^3/uL (0.0-0.2) 08/05/17 05:46 Baso # (Auto) 0.0 X10^3/uL (0.0-0.1) 08/05/17 05:46 Absolute Nucleated RBC 0.3 /100WBC 08/05/17 05:46 Total Counted 100 08/05/17 05:46 Neutrophils % (Manual) 91 % (39-76) H 08/05/17 05:46 Band Neutrophils % 9 % (0-10) 08/04/17 05:25 Lymphocytes % (Manual) 6 % (13-43) L 08/05/17 05:46 Monocytes % (Manual) 2 % (4-9) L 08/05/17 05:46 Eosinophils % (Manual) 1 % (0-6) 08/05/17 05:46 Plt Morphology Comment Normal (NORMAL) 08/05/17 05:46 RBC Morphology Abnormal (NORMAL) A 08/05/17 05:46 Macrocytosis 1+ A 08/05/17 05:46 Sample Site Right radial 08/05/17 10:09 ABG pH 7.420 (7.35-7.45) 08/05/17 10:09 ABG pCO2 37.0 mmHg (35.0-45.0) 08/05/17 10:09 ABG pO2 68.0 mmHg (80.0-100.0) L 08/05/17 10:09 ABG HCO3 24.0 mmol/L (22-26) 08/05/17 10:09 ABG O2 Saturation 94.0 % (90-100) 08/05/17 10:09 ABG Base Excess -0.2 mmol/L (-2.0-2.0) 08/05/17 10:09 Ruperto Test Pos 08/05/17 10:09 A-a Gradient 85.0 mmHg 08/05/17 10:09 FiO2 28.000 08/05/17 10:09 Blood Gas Comments Diya well aw 08/05/17 10:09 Sodium 142 mmol/L (136-145) 08/05/17 05:46 Corrected Sodium 142 mmol/L (136-145) 08/05/17 05:46 Potassium 4.0 mmol/L (3.5-5.1) 08/05/17 05:46 Chloride 110 mmol/L (98-107) H 08/05/17 05:46 Carbon Dioxide 21.5 mmol/L (21-32) 08/05/17 05:46 BUN 35 mg/dL (7-18) H 08/05/17 05:46 Creatinine 1.28 mg/dL (0.55-1.02) H 08/05/17 05:46 Est GFR (MDRD) Af Amer 52 (>60) L 08/05/17 05:46 Est GFR (MDRD) Non-Af 43 (>60) L 08/05/17 05:46 Glucose 116 mg/dL (65-99) H 08/05/17 05:46 Calcium 8.2 mg/dL (8.5-10.1) L 08/05/17 05:46 Corrected Calcium 10.1 mg/dL (8.5-10.1) 08/05/17 05:46 Magnesium 1.9 mg/dL (1.7-2.9) 08/04/17 05:25 Total Bilirubin 0.20 mg/dL (0.2-1.0) 08/05/17 05:46 AST 22 Units/L (15-37) 08/05/17 05:46 ALT 35 Units/L (12-78) 08/05/17 05:46 Alkaline Phosphatase 93 Units/L (46-116) 08/05/17 05:46 Creatine Kinase 106 Units/L (26-192) 08/05/17 01:05 CK-MB (CK-2) 2.7 ng/mL (0-4.0) 08/05/17 01:05 CK/CKMB % Calc 2.6 % (<4) 08/05/17 01:05 Troponin I 0.03 ng/mL (0-1.5) 08/05/17 01:05 B-Natriuretic Peptide 939 pg/mL (0-79) H* 08/05/17 14:55 Total Protein 5.7 g/dL (6.4-8.2) L 08/05/17 05:46 Albumin 1.6 g/dL (3.4-5.0) L 08/05/17 05:46 Globulin 4.1 g/dL (2.5-4.5) 08/05/17 05:46 Albumin/Globulin Ratio 0.4 Ratio (1.1-2.1) L 08/05/17 05:46 Specimen Type Catherized urine 08/05/17 07:22 Urine Color Yellow (YELLOW) 08/05/17 07:22 Urine Appearance Slightly hazy (CLEAR) 08/05/17 07:22 Urine pH 5.0 (5.0 - 8.0) 08/05/17 07:22 Ur Specific [place] 1.020 (1.000-1.030) 08/05/17 07:22 Urine Protein 2+ (NEGATIVE) 08/05/17 07:22 Urine Glucose (UA) Negative (NEGATIVE) 08/05/17 07:22 Urine Ketones Negative (NEGATIVE) 08/05/17 07:22 Urine Occult Blood 2+ (NEGATIVE) 08/05/17 07:22 Urine Nitrite Negative (NEGATIVE) 08/05/17 07:22 Urine Bilirubin Negative (NEGATIVE) 08/05/17 07:22 Urine Urobilinogen Normal (NORMAL) 08/05/17 07:22 Ur Leukocyte Esterase Negative (NEGATIVE) 08/05/17 07:22 Urine RBC 2-5 /HPF (NONE SEEN) 08/05/17 07:22 Urine WBC 0-3 /HPF (NONE SEEN) 08/05/17 07:22 Ur Squamous Epith Cells Few /HPF (NEGATIVE) 08/05/17 07:22 Amorphous Sediment Trace /HPF (NEGATIVE) 08/05/17 07:22 Urine Bacteria Negative /HPF (NEGATIVE) 08/05/17 07:22 Granular Casts Few /LPF (NEGATIVE) 08/05/17 07:22 Urine Mucus Few /HPF (NEGATIVE) 08/05/17 07:22 Ur Culture Indicated? No/not indicated 08/05/17 07:22 - XRAY XRAY Interpreted by: Radiologist XRAY Findings: REPORT DISCUSS WITH PATIENT AND FAMILY. - Diagnosis Discharge Problem: Generalized weakness, Musculoskeletal pain Hypotension Qualifiers: Hypotension type: unspecified hypotension type Qualified Code(s): I95.9 - Hypotension, unspecified - Discharge Plan Disposition: ADMITTED INPATIENT Condition: Stable - Follow ups/Referrals - Instructions
[2017-08-03 10:26] LABS: BASOPHILS % (AUTO) 0.5 % (0.2-1.0); EOSINOPHILS % (AUTO) 0.4 % (0.9-2.9); HEMATOCRIT 34.5 % (36.0-47.0); HEMOGLOBIN 11.8 g/dL (12.0-16.0); LYMPHOCYTES # (AUTO) 0.2 X10^3/uL (1.3-2.9); LYMPHOCYTES % (AUTO) 3.2 % (21.0-51.0); MEAN CORPUSCULAR HEMOGLOBIN 37.1 pg (27.0-34.0); MEAN PLATELET VOLUME 7.8 fL (7.4-11.0); MONOCYTES # (AUTO) 0.2 x10^3/uL (0.3-0.8); MONOCYTES % (AUTO) 2.1 % (0.0-13.0); NEUTROPHILS # (AUTO) 6.8 x10^3/uL (2.2-4.8); NEUTROPHILS % (AUTO) 93.8 % (42.0-75.0); PLATELET COUNT 307 X10^3/uL (150.0-450.0); RED BLOOD COUNT 3.17 X10^6/uL (3.5-5.4); RED CELL DISTRIBUTION WIDTH 14.3 % (11.6-16.5); WHITE BLOOD COUNT 7.2 X10^3/uL (3.6-10.0)
[2017-08-03 10:31] LABS: BLOOD UREA NITROGEN 49 mg/dL (7-18); CALCIUM 8.7 mg/dL (8.5-10.1); CARBON DIOXIDE 30.5 mmol/L (21-32); CHLORIDE 104 mmol/L (98-107); SODIUM 138 mmol/L (136-145); TROPONIN I < 0.02 ng/mL (0-1.5); eGFR BLACK RACES 40 (>60); eGFR NON BLACK RACES 33 (>60)
[2017-08-03 10:41] LABS: ALANINE AMINOTRANSFERASE 32 Units/L (12-78); ALBUMIN 2.4 g/dL (3.4-5.0); ALKALINE PHOSPHATASE 70 Units/L (46-116); ASPARTATE AMINO TRANSFERASE 15 Units/L (15-37); CREATINE KINASE 13 Units/L (26-192); CREATINE KINASE MB 1.3 ng/mL (0-4.0); TOTAL PROTEIN 6.5 g/dL (6.4-8.2)
[2017-08-03 10:44] LABS: PLATELET MORPHOLOGY COMMENT NORMAL (NORMAL)
--- NOTE | 2017-08-03 11:07 | CT ---
HISTORY: Fall, neck pain Study: CT cervical spine without contrast Comparison: None Technique: Axial noncontrast images with coronal and sagittal reformats. Dose reduction procedures we re used with mA/kv adjusted for body size. Findings: There is reversal of the normal lordotic curve which could be positional or due to muscle spasm. Ther e is mild anterolisthesis C3 on C4 likely secondary to facet degenerative joint disease. There is mil d anterolisthesis C4 on C5 and mild retrolisthesis C5 on C6 secondary to severe degenerative disc dis ease. Degenerative disc disease is also present at C6-7. The pedicles, spinous processes, and posteri or elements are intact. Spondylitic foraminally narrowing is present on the left at C3-4, and on the left at C5-6. Diffuse bilateral severe facet degenerative joint disease is present. Diffuse bilateral uncovertebral joint degenerative joint disease is present. There is no definite evidence for fractur e or dislocation. IMPRESSION: No evidence for fracture or dislocation Multilevel degenerative disc disease of a severe degree C4-5 Cárdenas C5-6, C6-7 Diffuse bilateral facet and uncovertebral joint degenerative joint disease Mild anterolisthesis C3 on C4 C4 on C5 and mild retrolisthesis C5 on C6 as described Reported By:
--- NOTE | 2017-08-03 11:13 | CT ---
HISTORY: Unwitnessed fall, back pain Study: CT thoracic spine without contrast Comparison: None Technique: Axial noncontrast images with coronal and sagittal reformats. Dose reduction procedures we re used with mA/kv adjusted for body size. Findings: Bones are osteopenic. The alignment is normal. The vertebral bodies are of average height. No laney yves fractures are identified. The disc spaces are preserved with the exception of narrowing at T8-9 and T9-10. The pedicles, spinous processes, and posterior elements are intact. Diffuse mild facet deg enerative joint disease is present. There is no definite evidence for fracture or dislocation. It tyrone uld be noted that CT is not adequate for the evaluation of thoracic disc disease and if thoracic disc disease is a clinical consideration MRI would be required. IMPRESSION: No acute traumatic abnormality Osteopenia Facet degenerative joint disease Mild disc space narrowing T8-9, T9-10 Reported By:
--- NOTE | 2017-08-03 11:14 | CT ---
CT LUMBAR SPINE WITHOUT CLINICAL HISTORY: 81-year-old female status post fall Thursday with back pain. COMPARISON: CT lumbar spine 12/25/2016. TECHNIQUE: Multiple, noncontrasted axial CT images were obtained from the thoracolumbar junction to the sacrum and reconstructed in the sagittal and coronal planes. FINDINGS: The most caudad, fully-formed intervertebral disc will be labeled L5-S1 for the purpose of this dictation and in keeping with prior imaging. Straightening of the lumbar lordosis as imaged. The demonstration of anterior posterior spinal fusion construct that are without evidence of hardware fa ilure. No acute fracture or malalignment. T11-T12: Mild facet arthropathy and disc bulge without central canal or neural foraminal stenosis. T12-L1: Mild facet arthropathy and disc bulge without central canal or neural foraminal stenosis. L1-L2: Near-complete loss of disc space with endplate erosions and sclerosis with vacuum disc phenome non. Central canal measures approximately 11.1 mm. Moderate to severe bilateral neural foraminal sten osis. L2-L3: Near-complete loss of disc space with endplate erosions and sclerosis with vacuum disc phenome non. Disc bulge with severe facet arthropathy. Central canal measures 9.4 mm. Moderate to severe left and [id number] right neural foraminal stenosis. L3-L4: No central canal or neural foraminal stenosis. Symmetric disc bulge and severe facet arthropat hy. L4-L5: Symmetric disc bulge with severe facet arthropathy without central canal stenosis. Mild bilate ral neural foraminal stenosis. L5-S1: Symmetric disc bulge with severe facet arthropathy without central canal stenosis. Severe left and moderate right neural foraminal stenosis. Paraspinous soft tissues are unremarkable. IMPRESSION: 1. No acute fracture or malalignment. 2. 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 Reported By:
--- NOTE | 2017-08-03 11:14 | RAD ---
HISTORY: Status post fall on Thursday. Study: Right shoulder: Two views Comparison: None Findings: [id number] acromioclavicular joint degeneration is noted. Mild glenohumeral joint degeneration is noted. Moderate degenerative changes noted in the region of the rotator cuff insertion. The clavicle and visualized ribs are intact. IMPRESSION: 1. Degenerative change in the right shoulder described above. 2. No acute bony abnormalities are identified. Reported By:
--- NOTE | 2017-08-03 11:15 | RAD ---
HISTORY: Status post fall on density Study: Right elbow: Two views Comparison: None Findings: Very minimal degenerative changes noted in the right elbow. No acute bony or joint abnormalities are identified. Minimal irregularity is noted along the lateral epicondyles suggesting previous trauma or epicondylitis. IMPRESSION: 1. Minimal degenerative change in the right elbow. 2. No acute bony abnormalities are identified. Reported By:
[2017-08-03 11:43] LABS: BILIRUBIN,URINE NEGATIVE (NEGATIVE); BLOOD/HEMOGLOBIN,URINE NEGATIVE (NEGATIVE); GLUCOSE, URINE NEGATIVE (NEGATIVE); KETONES,URINE NEGATIVE (NEGATIVE); LEUKOCYTE ESTERASE ,URINE NEGATIVE (NEGATIVE); NITRITES,URINE NEGATIVE (NEGATIVE); PROTEIN,URINE 1+ (NEGATIVE); UROBILINOGEN,URINE NORMAL (NORMAL)
[2017-08-03 11:45] LABS: APPEARANCE,URINE HAZY (CLEAR); COLOR,URINE YELLOW (YELLOW)
[2017-08-03 11:48] LABS: BACTERIA,URINE 1+ /HPF (NEGATIVE); RBC,URINE NONE SEEN /HPF (NONE SEEN); SQUAMOUS EPITHELIAL CELL,UR NUMEROUS /HPF (NEGATIVE)
[2017-08-03] MEDS ORDERED: NS 1000 ML 1,000 ML ONE (13:29)
[2017-08-03] MEDS: NS 1000 ML 1,000 ML IV SCH ×2 (13:43→22:24)
[2017-08-03 16:36] LABS: CKMB % 8.5 % (<4); CREATINE KINASE 13 Units/L (26-192); CREATINE KINASE MB 1.1 ng/mL (0-4.0); TROPONIN I < 0.02 ng/mL (0-1.5)
[2017-08-03] MEDS: ZyrTEC TAB 10 MG PO SCH (20:40)
[2017-08-03 22:31] LABS: CKMB % 2.9 % (<4); CREATINE KINASE MB 1.1 ng/mL (0-4.0); TROPONIN I 0.02 ng/mL (0-1.5)
[2017-08-04] MEDS: NS 1000 ML 1,000 ML IV SCH ×2 (06:09→17:54)
[2017-08-04 06:13] LABS: BASOPHILS % (AUTO) 0.2 % (0.2-1.0); HEMATOCRIT 30.5 % (36.0-47.0); HEMOGLOBIN 10.4 g/dL (12.0-16.0); LYMPHOCYTES # (AUTO) 0.2 X10^3/uL (1.3-2.9); LYMPHOCYTES % (AUTO) 1.6 % (21.0-51.0); MEAN CORPUSCULAR HEMOGLOBIN 37.4 pg (27.0-34.0); MEAN CORPUSCULAR HGB CONC 34.1 g/dL (33.0-35.0); MEAN CORPUSCULAR VOLUME 109.5 fL (80.0-100.0); MEAN PLATELET VOLUME 7.9 fL (7.4-11.0); MONOCYTES # (AUTO) 0.2 x10^3/uL (0.3-0.8); NEUTROPHILS # (AUTO) 9.4 x10^3/uL (2.2-4.8); NEUTROPHILS % (AUTO) 96.2 % (42.0-75.0); PLATELET COUNT 271 X10^3/uL (150.0-450.0); RED BLOOD COUNT 2.78 X10^6/uL (3.5-5.4); RED CELL DISTRIBUTION WIDTH 14.3 % (11.6-16.5); WHITE BLOOD COUNT 9.7 X10^3/uL (3.6-10.0)
[2017-08-04] MEDS: SYNTHROID 75 mcg TAB PO SCH (06:35)
[2017-08-04 06:40] LABS: ALBUMIN 1.9 g/dL (3.4-5.0); CALCIUM 8.1 mg/dL (8.5-10.1); CARBON DIOXIDE 26.4 mmol/L (21-32); COR CA(FOR HYPOALB) 9.8 mg/dL (8.5-10.1); CREATININE 1.34 mg/dL (0.55-1.02); MAGNESIUM 1.9 mg/dL (1.7-2.9); TOTAL PROTEIN 5.9 g/dL (6.4-8.2)
[2017-08-04 07:12] LABS: BAND NEUTROPHILS % 9 % (0-10)
[2017-08-04 07:13] LABS: PLATELET MORPHOLOGY COMMENT NORMAL (NORMAL)
[2017-08-04] MEDS: MOBIC TAB 15 MG PO SCH (09:22)
[2017-08-04] MEDS: VITAMIN D3 PO SCH (09:23)
[2017-08-04] MEDS: HEMOCYTE-PLUS PO SCH (09:23)
[2017-08-04] MEDS: PROTONIX TAB 40 MG PO SCH (09:24)
[2017-08-04] MEDS: XARELTO PO SCH (09:26)
[2017-08-04] MEDS: PREDNISONE TAB 20 MG PO SCH (09:31)
[2017-08-04] MEDS: EFFEXOR XR 150 MG CAP PO SCH (09:33)
[2017-08-04] MEDS: IMURAN PO SCH (09:34)
[2017-08-04 11:20] LABS: ABG BASE EXCESS -1.5 mmol/L (-2.0-2.0); ABG HCO3 24.3 mmol/L (22-26)
[2017-08-04 11:21] LABS: ABG ALLEN TEST POS
--- NOTE | 2017-08-04 17:28 | CT ---
Exam: Head CT without contrast History: 81-year-old female with anxiety, depression, and sleep apnea. Comparison: Previous head CT from 09/14/2015. Findings: Multiple axial images of the brain were obtained from the skullbase to the vertex without intravenous contrast administration. Coronal and sagittal reformations were generated. Generalized age related atrophic changes again present. However there is no evidence of intracranial hemorrhage, extracerebral fluid collections, or intracranial mass. Patchy low density is again seen i n the periventricular white matter distribution. Most likely this represents chronic small vessel isc hemia. Ventricles are symmetric in size and position with no mass effect identified. On the bone wind ows, no acute abnormality is seen. The visualized aspect of the paranasal sinuses demonstrates opacif ication of the left maxillary, ethmoid, and sphenoid sinuses. IMPRESSION: Age related atrophic change and patchy areas of chronic small vessel ischemia are present periventric ular white matter distribution. No acute intracranial abnormality is seen. Left maxillary, ethmoid, and sphenoid sinus disease. Reported By:
[2017-08-04] MEDS ORDERED: XOPENEX 1.25 MG/3 ML NEBULE NEB ONE (20:07)
[2017-08-04] MEDS: XOPENEX 1.25 MG/3 ML NEBULE NEB SCH (20:15)
[2017-08-04] MEDS: ZyrTEC TAB 10 MG PO SCH (20:47)
[2017-08-04] MEDS: ULTRAM PO PRN (21:22)
[2017-08-05] MEDS ORDERED: XOPENEX 1.25 MG/3 ML NEBULE NEB ONE (00:52)
[2017-08-05] MEDS: XOPENEX 1.25 MG/3 ML NEBULE NEB SCH ×5 (01:05→21:07)
[2017-08-05 01:46] LABS: CKMB % 2.6 % (<4); CREATINE KINASE MB 2.7 ng/mL (0-4.0); TROPONIN I 0.03 ng/mL (0-1.5)
[2017-08-05] MEDS ORDERED: NS 100 ML IV 100 ML IV ONE (02:06)
[2017-08-05] MEDS ORDERED: CARDIZEM INJ 125 MG VIAL ONE (02:06)
[2017-08-05] MEDS ORDERED: CARDIZEM INJ 50 MG VIAL ONE (02:12)
[2017-08-05] MEDS ORDERED: CARDIZEM INJ 50 MG VIAL IVP ONE (02:13)
[2017-08-05] MEDS: CARDIZEM INJ 125 MG VIAL 125 MG in NS 100 ML IV 100 ML IV PRN ×2 (02:17→08:32)
--- NOTE | 2017-08-05 02:20 | RAD ---
Chest, one view Indication: Shortness of breath Comparison: 05/04/2017 Findings: Patient is rotated. Accounting for rotation, the heart size is stable. Hazy opacities proje cting over the mid and lower left lung are likely related to overlying breast implants. The lungs are otherwise clear without focal consolidation, significant effusion or pneumothorax. There is no acute osseous abnormality. Impression: No acute cardiopulmonary abnormality or significant change since prior. Reported By:
[2017-08-05] MEDS: NS 1000 ML 1,000 ML IV SCH ×3 (02:35→13:41)
[2017-08-05] MEDS: VISTARIL PO PRN ×2 (04:53→06:22)
[2017-08-05 06:12] LABS: BASOPHILS % (AUTO) 0.1 % (0.2-1.0); EOSINOPHILS % (AUTO) 0.1 % (0.9-2.9); HEMATOCRIT 28.7 % (36.0-47.0); LYMPHOCYTES # (AUTO) 0.2 X10^3/uL (1.3-2.9); LYMPHOCYTES % (AUTO) 2.1 % (21.0-51.0); MEAN CORPUSCULAR HEMOGLOBIN 37.5 pg (27.0-34.0); MEAN CORPUSCULAR HGB CONC 34.6 g/dL (33.0-35.0); MEAN CORPUSCULAR VOLUME 108.1 fL (80.0-100.0); MEAN PLATELET VOLUME 7.9 fL (7.4-11.0); MONOCYTES # (AUTO) 0.2 x10^3/uL (0.3-0.8); MONOCYTES % (AUTO) 1.7 % (0.0-13.0); NEUTROPHILS # (AUTO) 9.3 x10^3/uL (2.2-4.8); PLATELET COUNT 283 X10^3/uL (150.0-450.0); RED BLOOD COUNT 2.66 X10^6/uL (3.5-5.4); RED CELL DISTRIBUTION WIDTH 14.3 % (11.6-16.5); WHITE BLOOD COUNT 9.7 X10^3/uL (3.6-10.0)
[2017-08-05 06:15] LABS: ALBUMIN 1.6 g/dL (3.4-5.0); CALCIUM 8.2 mg/dL (8.5-10.1); CARBON DIOXIDE 21.5 mmol/L (21-32); COR CA(FOR HYPOALB) 10.1 mg/dL (8.5-10.1); CREATININE 1.28 mg/dL (0.55-1.02); TOTAL PROTEIN 5.7 g/dL (6.4-8.2)
[2017-08-05] MEDS: SYNTHROID 75 mcg TAB PO SCH (06:19)
[2017-08-05 06:31] LABS: PLATELET MORPHOLOGY COMMENT NORMAL (NORMAL)
[2017-08-05 07:58] LABS: BILIRUBIN,URINE NEGATIVE (NEGATIVE); BLOOD/HEMOGLOBIN,URINE 2+ (NEGATIVE); GLUCOSE, URINE NEGATIVE (NEGATIVE); KETONES,URINE NEGATIVE (NEGATIVE); LEUKOCYTE ESTERASE ,URINE NEGATIVE (NEGATIVE); NITRITES,URINE NEGATIVE (NEGATIVE); PROTEIN,URINE 2+ (NEGATIVE); UROBILINOGEN,URINE NORMAL (NORMAL)
[2017-08-05 08:26] LABS: APPEARANCE,URINE SLIGHTLY HAZY (CLEAR); COLOR,URINE YELLOW (YELLOW)
[2017-08-05 08:27] LABS: BACTERIA,URINE NEGATIVE /HPF (NEGATIVE); SQUAMOUS EPITHELIAL CELL,UR FEW /HPF (NEGATIVE)
[2017-08-05 08:28] LABS: AMORPHOUS SEDIMENT,UR TRACE /HPF (NEGATIVE); GRANULAR CASTS,URINE FEW /LPF (NEGATIVE); MUCUS,URINE FEW /HPF (NEGATIVE)
[2017-08-05] MEDS: MOBIC TAB 15 MG PO SCH (09:18)
[2017-08-05] MEDS: HEMOCYTE-PLUS PO SCH (09:18)
[2017-08-05] MEDS: PREDNISONE TAB 20 MG PO SCH (09:18)
[2017-08-05] MEDS: EFFEXOR XR 150 MG CAP PO SCH (09:18)
[2017-08-05] MEDS: VITAMIN D3 PO SCH (09:18)
[2017-08-05] MEDS: PROTONIX TAB 40 MG PO SCH (09:18)
[2017-08-05] MEDS: XARELTO PO SCH (09:18)
[2017-08-05] MEDS: IMURAN PO SCH (09:22)
[2017-08-05] MEDS ORDERED: PHARMACY CONSULT - VANCOMYCIN XX SCH (10:00)
[2017-08-05] MEDS: ALBUMIN HUMAN 25%- 100ML 100 ML IV SCH (10:21)
[2017-08-05] MEDS: CARDIZEM CD 180 MG PO SCH (10:22)
[2017-08-05 10:30] LABS: ABG ALLEN TEST POS; ABG BASE EXCESS -0.2 mmol/L (-2.0-2.0)
--- NOTE | 2017-08-05 10:50 | RAD ---
History: Shortness of breath Study: Portable AP chest Comparison: Today at 1:32 a.m. Findings: There are bilateral breast prostheses. The heart size is normal. There is chronic diffuse i nterstitial lung disease. There is mild vascular congestion. There is no definite effusion. Impression: Mild vascular congestion Reported By:
[2017-08-05] MEDS: VANCOMYCIN HCL 1 GM VIAL 1 GM in D5W 250 ML IV 250 ML IV SCH (11:55)
--- NOTE | 2017-08-05 12:08 | DR.H&P ---
H&P - History & Physical for Day of: H&P Date: 08/03/17 - Chief Complaint Chief Complaint: FALLS, WEAKNESS, BACK PAIN, NECK PAIN, SHOULDER PAIN - Allergies Allergies/Adverse Reactions: Allergies Allergy/AdvReac Type Severity Reaction Status Date / Time zolpidem [From Ambien] Allergy Verified 08/03/17 09:12 - History of Present Illness History of Present Illness: IS A 81 YEAR OLD PATIENT OF OURS WHO PRESENTED TO THE EMERGENCY ROOM WITH COMPLAINTS OF GENERALIZED WEAKNESS, RIGHT SHOULDER PAIN, BACK PAIN, AND NECK PAIN FOLLOWING A FALL AT HOME ON SATURDAY, JULY 29, 2017. FAMILY REPORTS THAT THEY FOUND PATIENT IN THE FLOOR BY HER BED. ASSOCIATED SYMPTOMS ARE FATIGUE, PRODUCTIVE COUGH, SHORTNESS OF BREATH, CHEST PAIN, AND RIGHT ELBOW ABRASION AND REDNESS. ON ARRIVAL, VITALS WERE NOTED TO BE 96.2-105-18-97%-84/51. LABS WERE OBTAINED. ABNORMAL LAB VALUES INCLUDE THE FOLLOWING: RBC 3.17, HGB 11.8, HCT 34.5, BUN 49, CREATININE 1.60, CREATINE KINASE 13, ALBUMIN 2.4. URINALYSIS UNREMARKABLE. ABG REVEALED PH 7.50, PC02 44, P02 103, HC03 24.3. ELBOW AND SHOULDER XRAY ONLY REVEAL DEGENERATIVE CHANGES, OTHERWISE, NEGATIVE FOR ACUTE ABNORMALITY. C-SPINE AND LUMBAR SPINE ALSO REVEAL DEGENERATIVE CHANGES, OTHERWISE, NEGATIVE FOR ACUTE ABNORMALITY. PATIENT ADMITTED TO THE HOSPITAL FOR FURTHER EVALUATION AND TREATMENT OF GENERALIZED WEAKNESS, HYPOTENSION, AND FALLS. SHE WAS STARTED ON NORMAL SALINE AT 125ML/HR. WE WILL OBTAIN SERIAL CARDIAC ENZYMES AND EKGS, OTHERWISE, WE PLAN TO FOLLOW UP WITH AM LABS AND CONTINUE TO MONITOR PATIENT. - Past Medical History Past Medical History: Anemia, Anxiety, COPD, Depression, GERD, Hypothyroidism, Sleep Apnea Additional Medical History: Esophageal Disorders, Bronchiectasis, Gastrointestinal Ulcer, Constipation, Endometriosis, Vaginal Prolapse, Breast Cancer - Past Surgical History Surgical History: Appendectomy, Hysterectomy, Mastectomy, Ortho Surgery, Tonsillectomy Additional Surgical History: Knee Replacement - Family History Family Medical History: Diabetes Mellitus - Social History Does patient currently use any type of tobacco product: No Have you used tobacco products in the last 12 months: No Type of Tobacco Use: None Does any household member use tobacco: No Alcohol Use: None Drug Use: None - Medications Home Medications: Azathioprine [Imuran] 2 tabs PO DAILY 08/03/17 [History Confirmed 08/03/17] Iron Fum/Folic Acid/Mv,Min 15 [Centratex Capsule] 1 tab PO DAILY 08/03/17 [ History Confirmed 08/03/17] - Review of Systems Constitutional: See HPI, Weakness, Malaise Eyes: No Symptoms Reported. denies: See HPI, Pain, Vision Change, Conjunctivae Inflammation, Eyelid Inflammation, Redness, Other ENT: No Symptoms Reported. denies: See HPI, Ear Pain, Ear Discharge, Nose Pain , Nose Discharge, Nose Congestion, Mouth Pain, Mouth Swelling, Throat Pain, Throat Swelling, Other Respiratory: Cough, Shortness of Breath, SOB with Excertion. denies: Hemoptysis , Sputum Cardiovascular: Chest Pain Gastrointestinal: No Symptoms Reported. denies: See HPI, Nausea, Vomiting, Abdominal Pain, Diarrhea, Constipation, Melena, Hematochezia, Other Genitourinary: No Symptoms Reported. denies: See HPI, Dysuria, Frequency, Incontinence, Hematuria, Retention, Other Musculoskeletal: Shoulder Pain (RIGHT SHOULDER PAIN ), Neck Pain Skin: Wound (RIGHT ELBOW ABRASION, REDNESS ) Neurological: Weakness - Physical Exam Vital Signs: Temperature 98.1 F Pulse Rate [Left Brachial] 85 Pulse Rate [Apical] 106 Pulse Rate 99 Respiratory Rate 22 Blood Pressure [Right Arm] 136/74 Blood Pressure [Left Arm] 159/93 Blood Pressure 84/51 O2 Sat by Pulse Oximetry 94 Oriented: Normal Eyes: Normal Ear: Normal Nose: Normal Throat: Normal Respiratory: Rhonchi Throughout Cardiovascular: Normal : Normal Auscultation: Bowel Sounds: Normal Palpation: Normal Tenderness: Normal Skin: Red, Tender, Wound (RIGHT ELBOW ABRASION, REDNESS, DECREASED ROM) Musculoskeletal: Right, Shoulder, Elbow, Back:Thoracic, Back:Lumbar, Back: Midline, Tender Psychiatric: Normal Mood Description: Calm Affect: Normal Speech Pattern: Clear - Assessment/Plan (1) Hypotension Qualifiers: Hypotension type: unspecified hypotension type Qualified Code(s): I95.9 - Hypotension, unspecified Status: Acute Plan: NORMAL SALINE AT 125ML/HR, CONTINUE TO MONITOR (2) Generalized weakness Status: Acute Plan: NORMAL SALINE AT 125ML/HR, SERIAL CARDIAC ENZYMES AND EKG, CONTINUE TO MONITOR
[2017-08-05] MEDS: ULTRAM PO PRN (12:29)
[2017-08-05] MEDS: XANAX PO PRN (13:24)
[2017-08-05] MEDS ORDERED: MORPHINE SULFATE INJ 2 MG INJ IVP ONE (13:48)
[2017-08-05] MEDS: MORPHINE SULFATE PCA 30 MG IVP SCH (14:35)
[2017-08-05] MEDS ORDERED: LASIX IVP ONE (14:36)
[2017-08-05] MEDS: ZyrTEC TAB 10 MG PO SCH (21:41)
[2017-08-06] MEDS ORDERED: MORPHINE SULFATE INJ 2 MG INJ IVP ONE (00:43)
[2017-08-06] MEDS: NS 1000 ML 1,000 ML IV SCH ×4 (04:14→22:00)
[2017-08-06 06:40] LABS: BASOPHILS % (AUTO) 0.1 % (0.2-1.0); EOSINOPHILS % (AUTO) 0.3 % (0.9-2.9); HEMATOCRIT 26.2 % (36.0-47.0); HEMOGLOBIN 8.9 g/dL (12.0-16.0); LYMPHOCYTES # (AUTO) 0.2 X10^3/uL (1.3-2.9); LYMPHOCYTES % (AUTO) 2.5 % (21.0-51.0); MEAN CORPUSCULAR HEMOGLOBIN 37.3 pg (27.0-34.0); MEAN CORPUSCULAR VOLUME 109.5 fL (80.0-100.0); MEAN PLATELET VOLUME 8.1 fL (7.4-11.0); MONOCYTES # (AUTO) 0.2 x10^3/uL (0.3-0.8); MONOCYTES % (AUTO) 2.3 % (0.0-13.0); NEUTROPHILS # (AUTO) 7.8 x10^3/uL (2.2-4.8); NEUTROPHILS % (AUTO) 94.8 % (42.0-75.0); PLATELET COUNT 257 X10^3/uL (150.0-450.0); RED CELL DISTRIBUTION WIDTH 14.7 % (11.6-16.5); WHITE BLOOD COUNT 8.2 X10^3/uL (3.6-10.0)
[2017-08-06 06:42] LABS: ALANINE AMINOTRANSFERASE 28 Units/L (12-78); ALBUMIN 2.2 g/dL (3.4-5.0); ALKALINE PHOSPHATASE 92 Units/L (46-116); ASPARTATE AMINO TRANSFERASE 19 Units/L (15-37); BLOOD UREA NITROGEN 31 mg/dL (7-18); CALCIUM 8.3 mg/dL (8.5-10.1); CARBON DIOXIDE 25.1 mmol/L (21-32); CHLORIDE 110 mmol/L (98-107); COR CA(FOR HYPOALB) 9.7 mg/dL (8.5-10.1); SODIUM 144 mmol/L (136-145); eGFR BLACK RACES 47 (>60); eGFR NON BLACK RACES 38 (>60)
[2017-08-06 07:10] LABS: BAND NEUTROPHILS % 4 % (0-10); PLATELET MORPHOLOGY COMMENT NORMAL (NORMAL)
[2017-08-06] MEDS: XANAX PO PRN (07:54)
[2017-08-06] MEDS: SYNTHROID 75 mcg TAB PO SCH (07:55)
[2017-08-06] MEDS: ALBUMIN HUMAN 25%- 100ML 100 ML IV SCH (08:00)
[2017-08-06] MEDS: PROTONIX TAB 40 MG PO SCH (08:01)
[2017-08-06] MEDS: XARELTO PO SCH (08:01)
[2017-08-06] MEDS: VITAMIN D3 PO SCH (08:01)
[2017-08-06] MEDS: CARDIZEM CD 180 MG PO SCH (08:01)
[2017-08-06] MEDS: EFFEXOR XR 150 MG CAP PO SCH (08:01)
[2017-08-06] MEDS: MOBIC TAB 15 MG PO SCH (08:01)
[2017-08-06] MEDS: HEMOCYTE-PLUS PO SCH (08:01)
[2017-08-06] MEDS: PREDNISONE TAB 20 MG PO SCH ×2 (08:01→20:48)
[2017-08-06] MEDS: IMURAN PO SCH (08:05)
[2017-08-06] MEDS: VANCOMYCIN HCL 1 GM VIAL 1 GM in D5W 250 ML IV 250 ML IV SCH (08:17)
[2017-08-06] MEDS: XOPENEX 1.25 MG/3 ML NEBULE NEB SCH ×4 (08:30→21:35)
[2017-08-06] MEDS ORDERED: LANOXIN INJ IVP ONE (09:31)
[2017-08-06] MEDS: LASIX IVP SCH ×2 (09:51→20:27)
--- NOTE | 2017-08-06 10:35 | PCM.PROG ---
Progress Note - Progress Note for Day of Date: 08/04/17 - Subjective Subjective: IS BEING TREATED FOR GENERALIZED WEAKNESS AND HYPOTENSION FOLLOWING A FALL AT HOME. TODAY, SHE IS LYING IN BED ON MORNING ROUNDS. FAMILY REPORTS THAT PATIENT HAS BEEN CONFUSED AT TIMES AND IS OFTEN TRYING TO GET OUT OF BED WITHOUT ASSISTANCE. SHE CONTINUES WITH COMPLAINTS OF GENERALIZED WEAKNESS , SHORTNESS OF BREATH, AND RIGHT ELBOW PAIN. HER BLOOD PRESSURE HAS RETURNED TO BASELINE. ON EXAMINATION, HEART IS REGULAR IN RATE AND RHYTHM. BILATERAL LUNGS CONTINUE WITH RHONCHI THROUGHOUT. ABDOMEN IS ROUND, SOFT, AND NON-TENDER WITH NORMAL BOWEL SOUNDS NOTED IN ALL QUADRANTS. THERE IS DECREASED RANGE OF MOTION NOTED TO RIGHT ELBOW. RIGHT ELBOW CONTINUES WITH ABRASION, REDNESS, AND GENERALIZED EDEMA TO THE AREA. HER VITALS THIS MORNING ARE 97.7-79-20-96%-171/ 86. LABS WERE OBTAINED. ABNORMAL LAB VALUES INCLUDE THE FOLLOWING: RBC 2.78, HGB 10.4, HCT 30.5, BUN 40, CREATININE 1.34, GLUCOSE 160, CALCIUM 8.1, TOTAL PROTEIN 5.9, ALBUMIN 1.9. TODAY, WE WILL OBTAIN A BRAIN CT WITHOUT CONTRAST, AN ABG, AND WILL RESUME HOME MEDICATIONS APPROPRATE. WE WILL ALSO OBTAIN A WOUND CULTURE OF WOUND TO RIGHT ELBOW. OTHERWISE, WE WILL CONTINUE WITH CURRENT PLAN OF CARE. WE PLAN TO FOLLOW UP WITH AM LABS AND CONTINUE TO MONITOR PATIENT. - Past Medical Family Social History Past Med/Fam/Surg Hx: No changes since H&P Allergies: Allergies zolpidem [From Ambien] Allergy (Verified 08/03/17 09:12) - Review of Systems ROS: No change since H&P - Vital Signs and I&O's Vital Signs: Temperature 98.0 F Pulse Rate [Left Brachial] 95 Pulse Rate [Apical] 85 Pulse Rate 107 Respiratory Rate 20 Blood Pressure [Right Arm] 126/66 Blood Pressure [Left Arm] 159/93 Blood Pressure 84/51 O2 Sat by Pulse Oximetry 97 Intake and Output: Intake & Output 08/03/17 08/04/17 08/05/17 08/06/17 11:59 11:59 11:59 11:59 Intake Total 275 1896 1868 Output Total 1350 Balance 275 1896 518 - Physical Exam Oriented: Person Eyes: Normal Ear: Normal Nose: Normal Throat: Normal Respiratory: Right, Left, Generalized, Rhonchi Cardiovascular: Normal : Normal Auscultation: Bowel Sounds: Normal Palpation: Normal Tenderness: Normal Skin: Red, Tender, Wound (RIGHT ELBOW ABRASION, REDNESS, DECREASED ROM) Musculoskeletal: Right, Shoulder, Elbow, Tender Psychiatric: Normal Mood Description: Calm Affect: Normal Speech Pattern: Clear, Appropriate - Laboratory and Diagnostics Result Diagrams: 08/06/17 05:24 08/06/17 05:24 Labs: 08/04/17 21:06 Elbow - Right Gram Stain - Final 08/04/17 21:06 Elbow - Right Wound Culture - Preliminary Laboratory WBC 8.2 X10^3/uL (3.6-10.0) 08/06/17 05:24 RBC 2.40 X10^6/uL (3.5-5.4) L 08/06/17 05:24 Hgb 8.9 g/dL (12.0-16.0) L 08/06/17 05:24 Hct 26.2 % (36.0-47.0) L 08/06/17 05:24 MCV 109.5 fL (80.0-100.0) H 08/06/17 05:24 MCH 37.3 pg (27.0-34.0) H 08/06/17 05:24 MCHC 34.0 g/dL (33.0-35.0) 08/06/17 05:24 RDW 14.7 % (11.6-16.5) 08/06/17 05:24 Plt Count 257 X10^3/uL (150.0-450.0) 08/06/17 05:24 Plt Count Comment Adequate (ADEQUATE) 08/06/17 05:24 MPV 8.1 fL (7.4-11.0) 08/06/17 05:24 Neut % (Auto) 94.8 % (42.0-75.0) H 08/06/17 05:24 Lymph % (Auto) 2.5 % (21.0-51.0) L 08/06/17 05:24 [place] % (Auto) 2.3 % (0.0-13.0) 08/06/17 05:24 Eos % (Auto) 0.3 % (0.9-2.9) L 08/06/17 05:24 Baso % (Auto) 0.1 % (0.2-1.0) L 08/06/17 05:24 Neut # (Auto) 7.8 x10^3/uL (2.2-4.8) H 08/06/17 05:24 Lymph # (Auto) 0.2 X10^3/uL (1.3-2.9) L 08/06/17 05:24 [place] # (Auto) 0.2 x10^3/uL (0.3-0.8) L 08/06/17 05:24 Eos # (Auto) 0.0 x10^3/uL (0.0-0.2) 08/06/17 05:24 Baso # (Auto) 0.0 X10^3/uL (0.0-0.1) 08/06/17 05:24 Absolute Nucleated RBC 0.3 /100WBC 08/06/17 05:24 Total Counted 100 08/06/17 05:24 Neutrophils % (Manual) 91 % (39-76) H 08/06/17 05:24 Band Neutrophils % 4 % (0-10) 08/06/17 05:24 Lymphocytes % (Manual) 1 % (13-43) L 08/06/17 05:24 Monocytes % (Manual) 3 % (4-9) L 08/06/17 05:24 Eosinophils % (Manual) 1 % (0-6) 08/06/17 05:24 Plt Morphology Comment Normal (NORMAL) 08/06/17 05:24 RBC Morphology Abnormal (NORMAL) A 08/06/17 05:24 Macrocytosis 1+ A 08/06/17 05:24 Sample Site Right radial 08/05/17 10:09 ABG pH 7.420 (7.35-7.45) 08/05/17 10:09 ABG pCO2 37.0 mmHg (35.0-45.0) 08/05/17 10:09 ABG pO2 68.0 mmHg (80.0-100.0) L 08/05/17 10:09 ABG HCO3 24.0 mmol/L (22-26) 08/05/17 10:09 ABG O2 Saturation 94.0 % (90-100) 08/05/17 10:09 ABG Base Excess -0.2 mmol/L (-2.0-2.0) 08/05/17 10:09 Ruperto Test Pos 08/05/17 10:09 A-a Gradient 85.0 mmHg 08/05/17 10:09 FiO2 28.000 08/05/17 10:09 Blood Gas Comments Diya well aw 08/05/17 10:09 Sodium 144 mmol/L (136-145) 08/06/17 05:24 Corrected Sodium TNP 08/06/17 05:24 Potassium 4.2 mmol/L (3.5-5.1) 08/06/17 05:24 Chloride 110 mmol/L (98-107) H 08/06/17 05:24 Carbon Dioxide 25.1 mmol/L (21-32) 08/06/17 05:24 BUN 31 mg/dL (7-18) H 08/06/17 05:24 Creatinine 1.40 mg/dL (0.55-1.02) H 08/06/17 05:24 Est GFR (MDRD) Af Amer 47 (>60) L 08/06/17 05:24 Est GFR (MDRD) Non-Af 38 (>60) L 08/06/17 05:24 Glucose 87 mg/dL (65-99) 08/06/17 05:24 Calcium 8.3 mg/dL (8.5-10.1) L 08/06/17 05:24 Corrected Calcium 9.7 mg/dL (8.5-10.1) 08/06/17 05:24 Magnesium 1.9 mg/dL (1.7-2.9) 08/04/17 05:25 Total Bilirubin 0.30 mg/dL (0.2-1.0) 08/06/17 05:24 AST 19 Units/L (15-37) 08/06/17 05:24 ALT 28 Units/L (12-78) 08/06/17 05:24 Alkaline Phosphatase 92 Units/L (46-116) 08/06/17 05:24 Creatine Kinase 106 Units/L (26-192) 08/05/17 01:05 CK-MB (CK-2) 2.7 ng/mL (0-4.0) 08/05/17 01:05 CK/CKMB % Calc 2.6 % (<4) 08/05/17 01:05 Troponin I 0.03 ng/mL (0-1.5) 08/05/17 01:05 B-Natriuretic Peptide 939 pg/mL (0-79) H* 08/05/17 14:55 Total Protein 6.0 g/dL (6.4-8.2) L 08/06/17 05:24 Albumin 2.2 g/dL (3.4-5.0) L 08/06/17 05:24 Globulin 3.8 g/dL (2.5-4.5) 08/06/17 05:24 Albumin/Globulin Ratio 0.6 Ratio (1.1-2.1) L 08/06/17 05:24 Specimen Type Catherized urine 08/05/17 07:22 Urine Color Yellow (YELLOW) 08/05/17 07:22 Urine Appearance Slightly hazy (CLEAR) 08/05/17 07:22 Urine pH 5.0 (5.0 - 8.0) 08/05/17 07:22 Ur Specific [place] 1.020 (1.000-1.030) 08/05/17 07:22 Urine Protein 2+ (NEGATIVE) 08/05/17 07:22 Urine Glucose (UA) Negative (NEGATIVE) 08/05/17 07:22 Urine Ketones Negative (NEGATIVE) 08/05/17 07:22 Urine Occult Blood 2+ (NEGATIVE) 08/05/17 07:22 Urine Nitrite Negative (NEGATIVE) 08/05/17 07:22 Urine Bilirubin Negative (NEGATIVE) 08/05/17 07:22 Urine Urobilinogen Normal (NORMAL) 08/05/17 07:22 Ur Leukocyte Esterase Negative (NEGATIVE) 08/05/17 07:22 Urine RBC 2-5 /HPF (NONE SEEN) 08/05/17 07:22 Urine WBC 0-3 /HPF (NONE SEEN) 08/05/17 07:22 Ur Squamous Epith Cells Few /HPF (NEGATIVE) 08/05/17 07:22 Amorphous Sediment Trace /HPF (NEGATIVE) 08/05/17 07:22 Urine Bacteria Negative /HPF (NEGATIVE) 08/05/17 07:22 Granular Casts Few /LPF (NEGATIVE) 08/05/17 07:22 Urine Mucus Few /HPF (NEGATIVE) 08/05/17 07:22 Ur Culture Indicated? No/not indicated 08/05/17 07:22 - Plan (1) Generalized weakness Status: Acute Plan: NORMAL SALINE AT 125ML/HR, SERIAL CARDIAC ENZYMES AND EKG, CONTINUE TO MONITOR (2) Shortness of breath Status: Acute Plan: CONTINUE SUPPLEMENTAL OXYGEN, CHECK ABG, CONTINUE TO MONITOR (3) Elbow pain Status: Acute Qualifiers: Laterality: right Qualified Code(s): M25.521 - Pain in right elbow Plan: OBTAIN WOUND CULTURE, CONTINUE TO MONITOR (4) Mental status alteration Status: Acute Qualifiers: Altered mental status type: transient alteration of awareness Qualified Code(s): R40.4 - Transient alteration of awareness Plan: OBTAIN BRAIN CT, CONTINUE TO MONITOR (5) Anemia Status: Chronic Qualifiers: Anemia type: iron deficiency Iron deficiency anemia type: inadequate dietary iron intake Qualified Code(s): D50.8 - Other iron deficiency anemias Plan: CONTINUE HEMOCYTE PLUS, CONTINUE TO MONITOR (6) Depression Status: Chronic Qualifiers: Depression Type: major depressive disorder Major depression recurrence: recurrent Active/Remission status: remission status unspecified Qualified Code(s): F33.9 - Major depressive disorder, recurrent, unspecified Plan: CONTINUE EFFEXOR, CONTINUE TO MONITOR (7) GERD (gastroesophageal reflux disease) Status: Chronic Qualifiers: Esophagitis presence: esophagitis presence not specified Qualified Code(s) : K21.9 - Gastro-esophageal reflux disease without esophagitis Plan: CONTINUE PROTONIX, CONTINUE TO MONITOR
--- NOTE | 2017-08-06 11:54 | PCM.PROG ---
Progress Note - Progress Note for Day of Date: 08/05/17 - Subjective Subjective: IS BEING TREATED FOR GENERALIZED WEAKNESS AND HYPOTENSION FOLLOWING A FALL AT HOME. SHE WAS TRANSFERRED TO THE INTENSIVE CARE UNIT YESTERDAY DUE TO INCREASED HEARTRATE AND DECREASED OXYGEN SATURATIONS. SHE WAS STARTED ON A CARDIZEM DRIP DUE TO FINDINGS OF ATRIAL FIBRILLATION WITH HR IN THE 160S. TODAY, SHE IS LYING IN BED ON MORNING ROUNDS. SHE IS ALERT AND ORIENTED AT THIS TIME, HOWEVER, FAMILY REPORTS THAT SHE CONTIUES WITH INTERMITTENT CONFUSION. SHE CONTINUES WITH COMPLAINTS OF GENERALIZED WEAKNESS, SHORTNESS OF BREATH, AND RIGHT ELBOW PAIN. ON EXAMINATION, SHE CONTINUES TO BE IN ATRIAL FIBRILLATION WITH HR IN THE 100-100 BPM RANGE. BILATERAL LUNGS CONTINUE WITH SCATTERED WHEEZING AND RHONCHI THROUGHOUT. ABDOMEN IS ROUND, SOFT , AND NON-TENDER WITH NORMAL BOWEL SOUNDS NOTED IN ALL QUADRANTS. THERE IS DECREASED RANGE OF MOTION NOTED TO RIGHT ELBOW. RIGHT ELBOW CONTINUES WITH REDNESS AND GENERALIZED EDEMA TO THE AREA. HER VITALS THIS MORNING ARE 98.1-100- 22-96% NC-149/81. LABS WERE OBTAINED. ABNORMAL LAB VALUES INCLUDE THE FOLLOWING : RBC 2.66, HGB 10.0, HCT 28.7, CHLORIDE 110, BUN 35, CREATININE 1.28, GFR 43, GLUCOSE 116, CALCIUM 8.2, TOTAL PROTEIN 5.7, ALBUMIN 1.6. 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 NO ACUTE INTRACRANIAL ABNORMALITY IS SEEN. LEFT MAXILLARY, ETHMOID , AND SPHENOID SINUS DISEASE. WE OBTAINED A CHEST XRAY THIS MORNING. IT REVEALED NO CARDIOPULMONARY ABNORMALITY OR SIGNIFICANT CHANGE SINCE PRIOR. STAFF REPORTS THAT PATIENT HAS BEEN VERY ANXIOUS AND HAS REPORTED SEVERE SHORNTESS OF BREATH. THEY REPORT THAT WHEN OXYGEN IS REMOVED, PATIENTS OXYGEN SATURATIONS FALL INTO THE HIGH 70S-LOW 80S. PATIENT REQUIRES THE USE OF A HOSPITAL BED. HEAD OF BED IS TO REMAIN ELEVATED AT 35 DEGREES OR HIGHER DUE TO CONGESTIVE HEART FAILURE AND FOR BODY POSITION NOT FEASIBLE IN AN ORDINARY BED. WE WILL HAVE A HOSPITAL BED SET UP FOR PATIENT AT HOME. TODAY, WE WILL REPEAT ABG AND CHEST XRAY. WE WILL ALSO START PATIENT ON VANCOMYCIN 1MG IV DAILY FOR INFECTION TO RIGHT ELBOW. WE WILL PLACE PATIENT ON CARDIZEM CD 180MG PO DAILY AND WEAN OFF OF CARDIZEM DRIP. OTHERWISE, WE WILL CONTINUE TO FOLLOW UP WITH AM LABS AND CONTINUE TO MONITOR PATIENT. - Past Medical Family Social History Past Med/Fam/Surg Hx: No changes since H&P Allergies: Allergies zolpidem [From Ambien] Allergy (Verified 08/03/17 09:12) - Review of Systems ROS: No change since H&P - Vital Signs and I&O's Vital Signs: Temperature 98.0 F Pulse Rate [Left Brachial] 98 Pulse Rate [Apical] 85 Pulse Rate 107 Respiratory Rate 12 Blood Pressure [Right Arm] 133/71 Blood Pressure [Left Arm] 159/93 Blood Pressure 84/51 O2 Sat by Pulse Oximetry 97 Intake and Output: Intake & Output 08/03/17 08/04/17 08/05/17 08/06/17 11:59 11:59 11:59 11:59 Intake Total 275 1896 1868 Output Total 1350 Balance 275 1896 518 - Physical Exam Oriented: Normal Eyes: Normal Ear: Normal Nose: Normal Throat: Normal Respiratory: Right, Left, Generalized, Wheezes, Rhonchi Cardiovascular: Tachycardia : Normal Auscultation: Bowel Sounds: Normal Palpation: Normal Tenderness: Normal Skin: Red, Tender, Wound (RIGHT ELBOW ABRASION, REDNESS, DECREASED ROM) Musculoskeletal: Right, Shoulder, Elbow, Tender Psychiatric: Normal Mood Description: Calm Affect: Normal Speech Pattern: Clear, Appropriate - Laboratory and Diagnostics Result Diagrams: 08/06/17 05:24 08/06/17 05:24 Labs: 08/04/17 21:06 Elbow - Right Gram Stain - Final 08/04/17 21:06 Elbow - Right Wound Culture - Preliminary Laboratory WBC 8.2 X10^3/uL (3.6-10.0) 08/06/17 05:24 RBC 2.40 X10^6/uL (3.5-5.4) L 08/06/17 05:24 Hgb 8.9 g/dL (12.0-16.0) L 08/06/17 05:24 Hct 26.2 % (36.0-47.0) L 08/06/17 05:24 MCV 109.5 fL (80.0-100.0) H 08/06/17 05:24 MCH 37.3 pg (27.0-34.0) H 08/06/17 05:24 MCHC 34.0 g/dL (33.0-35.0) 08/06/17 05:24 RDW 14.7 % (11.6-16.5) 08/06/17 05:24 Plt Count 257 X10^3/uL (150.0-450.0) 08/06/17 05:24 Plt Count Comment Adequate (ADEQUATE) 08/06/17 05:24 MPV 8.1 fL (7.4-11.0) 08/06/17 05:24 Neut % (Auto) 94.8 % (42.0-75.0) H 08/06/17 05:24 Lymph % (Auto) 2.5 % (21.0-51.0) L 08/06/17 05:24 [place] % (Auto) 2.3 % (0.0-13.0) 08/06/17 05:24 Eos % (Auto) 0.3 % (0.9-2.9) L 08/06/17 05:24 Baso % (Auto) 0.1 % (0.2-1.0) L 08/06/17 05:24 Neut # (Auto) 7.8 x10^3/uL (2.2-4.8) H 08/06/17 05:24 Lymph # (Auto) 0.2 X10^3/uL (1.3-2.9) L 08/06/17 05:24 [place] # (Auto) 0.2 x10^3/uL (0.3-0.8) L 08/06/17 05:24 Eos # (Auto) 0.0 x10^3/uL (0.0-0.2) 08/06/17 05:24 Baso # (Auto) 0.0 X10^3/uL (0.0-0.1) 08/06/17 05:24 Absolute Nucleated RBC 0.3 /100WBC 08/06/17 05:24 Total Counted 100 08/06/17 05:24 Neutrophils % (Manual) 91 % (39-76) H 08/06/17 05:24 Band Neutrophils % 4 % (0-10) 08/06/17 05:24 Lymphocytes % (Manual) 1 % (13-43) L 08/06/17 05:24 Monocytes % (Manual) 3 % (4-9) L 08/06/17 05:24 Eosinophils % (Manual) 1 % (0-6) 08/06/17 05:24 Plt Morphology Comment Normal (NORMAL) 08/06/17 05:24 RBC Morphology Abnormal (NORMAL) A 08/06/17 05:24 Macrocytosis 1+ A 08/06/17 05:24 Sample Site Right radial 08/05/17 10:09 ABG pH 7.420 (7.35-7.45) 08/05/17 10:09 ABG pCO2 37.0 mmHg (35.0-45.0) 08/05/17 10:09 ABG pO2 68.0 mmHg (80.0-100.0) L 08/05/17 10:09 ABG HCO3 24.0 mmol/L (22-26) 08/05/17 10:09 ABG O2 Saturation 94.0 % (90-100) 08/05/17 10:09 ABG Base Excess -0.2 mmol/L (-2.0-2.0) 08/05/17 10:09 Ruperto Test Pos 08/05/17 10:09 A-a Gradient 85.0 mmHg 08/05/17 10:09 FiO2 28.000 08/05/17 10:09 Blood Gas Comments Diya well aw 08/05/17 10:09 Sodium 144 mmol/L (136-145) 08/06/17 05:24 Corrected Sodium TNP 08/06/17 05:24 Potassium 4.2 mmol/L (3.5-5.1) 08/06/17 05:24 Chloride 110 mmol/L (98-107) H 08/06/17 05:24 Carbon Dioxide 25.1 mmol/L (21-32) 08/06/17 05:24 BUN 31 mg/dL (7-18) H 08/06/17 05:24 Creatinine 1.40 mg/dL (0.55-1.02) H 08/06/17 05:24 Est GFR (MDRD) Af Amer 47 (>60) L 08/06/17 05:24 Est GFR (MDRD) Non-Af 38 (>60) L 08/06/17 05:24 Glucose 87 mg/dL (65-99) 08/06/17 05:24 Calcium 8.3 mg/dL (8.5-10.1) L 08/06/17 05:24 Corrected Calcium 9.7 mg/dL (8.5-10.1) 08/06/17 05:24 Magnesium 1.9 mg/dL (1.7-2.9) 08/04/17 05:25 Total Bilirubin 0.30 mg/dL (0.2-1.0) 08/06/17 05:24 AST 19 Units/L (15-37) 08/06/17 05:24 ALT 28 Units/L (12-78) 08/06/17 05:24 Alkaline Phosphatase 92 Units/L (46-116) 08/06/17 05:24 Creatine Kinase 106 Units/L (26-192) 08/05/17 01:05 CK-MB (CK-2) 2.7 ng/mL (0-4.0) 08/05/17 01:05 CK/CKMB % Calc 2.6 % (<4) 08/05/17 01:05 Troponin I 0.03 ng/mL (0-1.5) 08/05/17 01:05 B-Natriuretic Peptide 939 pg/mL (0-79) H* 08/05/17 14:55 Total Protein 6.0 g/dL (6.4-8.2) L 08/06/17 05:24 Albumin 2.2 g/dL (3.4-5.0) L 08/06/17 05:24 Globulin 3.8 g/dL (2.5-4.5) 08/06/17 05:24 Albumin/Globulin Ratio 0.6 Ratio (1.1-2.1) L 08/06/17 05:24 Specimen Type Catherized urine 08/05/17 07:22 Urine Color Yellow (YELLOW) 08/05/17 07:22 Urine Appearance Slightly hazy (CLEAR) 08/05/17 07:22 Urine pH 5.0 (5.0 - 8.0) 08/05/17 07:22 Ur Specific [place] 1.020 (1.000-1.030) 08/05/17 07:22 Urine Protein 2+ (NEGATIVE) 08/05/17 07:22 Urine Glucose (UA) Negative (NEGATIVE) 08/05/17 07:22 Urine Ketones Negative (NEGATIVE) 08/05/17 07:22 Urine Occult Blood 2+ (NEGATIVE) 08/05/17 07:22 Urine Nitrite Negative (NEGATIVE) 08/05/17 07:22 Urine Bilirubin Negative (NEGATIVE) 08/05/17 07:22 Urine Urobilinogen Normal (NORMAL) 08/05/17 07:22 Ur Leukocyte Esterase Negative (NEGATIVE) 08/05/17 07:22 Urine RBC 2-5 /HPF (NONE SEEN) 08/05/17 07:22 Urine WBC 0-3 /HPF (NONE SEEN) 08/05/17 07:22 Ur Squamous Epith Cells Few /HPF (NEGATIVE) 08/05/17 07:22 Amorphous Sediment Trace /HPF (NEGATIVE) 08/05/17 07:22 Urine Bacteria Negative /HPF (NEGATIVE) 08/05/17 07:22 Granular Casts Few /LPF (NEGATIVE) 08/05/17 07:22 Urine Mucus Few /HPF (NEGATIVE) 08/05/17 07:22 Ur Culture Indicated? 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, CONTINUE TO MONITOR (2) Cellulitis of right elbow Status: Acute Plan: VANCOMYCIN 1GM IV DAILY, CONTINUE TO MONITOR (3) Generalized weakness Status: Acute Plan: NORMAL SALINE AT 125ML/HR, SERIAL CARDIAC ENZYMES AND EKG, CONTINUE TO MONITOR (4) Shortness of breath Status: Acute Plan: CONTINUE SUPPLEMENTAL OXYGEN, CHECK ABG, CHEST XRAY, CONTINUE TO MONITOR (5) Elbow pain Status: Acute Qualifiers: Laterality: right Qualified Code(s): M25.521 - Pain in right elbow Plan: OBTAIN WOUND CULTURE, CONTINUE TO MONITOR (6) Mental status alteration Status: Acute Qualifiers: Altered mental status type: transient alteration of awareness Qualified Code(s): R40.4 - Transient alteration of awareness Plan: OBTAIN BRAIN CT, CONTINUE TO MONITOR (7) Anemia Status: Chronic Qualifiers: Anemia type: iron deficiency Iron deficiency anemia type: inadequate dietary iron intake Qualified Code(s): D50.8 - Other iron deficiency anemias Plan: CONTINUE HEMOCYTE PLUS, CONTINUE TO MONITOR (8) Depression Status: Chronic Qualifiers: Depression Type: major depressive disorder Major depression recurrence: recurrent Active/Remission status: remission status unspecified Qualified Code(s): F33.9 - Major depressive disorder, recurrent, unspecified Plan: CONTINUE EFFEXOR, CONTINUE TO MONITOR (9) GERD (gastroesophageal reflux disease) Status: Chronic Qualifiers: Esophagitis presence: esophagitis presence not specified Qualified Code(s) : K21.9 - Gastro-esophageal reflux disease without esophagitis Plan: CONTINUE PROTONIX, CONTINUE TO MONITOR
--- NOTE | 2017-08-06 14:02 | RAD ---
HISTORY: Shortness of breath Study: AP portable chest Comparison: 08/05/2017 Findings: Increasing opacification is noted in the left lung base. There appears to be [id number] pulmon oseas vascular congestion. The heart size is normal. No acute bony abnormalities are identified. IMPRESSION: 1. Rgrr-[id number]-[id number] pulmonary vascular congestion. 2. Increasing opacification in the left lung base suggesting atelectatic change/infiltrate and/or ef fusion. This may be due to underlying pneumonia. Reported By:
[2017-08-06] MEDS: MORPHINE SULFATE PCA 30 MG IVP SCH (19:05)
[2017-08-06] MEDS: ZyrTEC TAB 10 MG PO SCH (20:48)
[2017-08-06] MEDS ORDERED: LEVAQUIN PREMIX IV 500 MG 500 MG/100 ML BAG IV ONE (21:00)
--- NOTE | 2017-08-07 06:07 | RAD ---
HISTORY: Shortness of breath Study: Chest AP portable Comparison: 08/06/2017 Findings: The heart is upper limits normal in size. No definite congestive heart failure is noted. Interstitial lung changes are present in the right lung base. The right upper lobe and left upper lobe are clear. Increased density remains in the retrocardiac area the left lower lobe which could be due to atelect asis, infiltrate, effusion or combination. The bony thorax is unremarkable. IMPRESSION: No significant change from the prior examination Reported By:
[2017-08-07] MEDS: NS 1000 ML 1,000 ML IV SCH ×2 (06:09→22:59)
[2017-08-07 06:25] LABS: BASOPHILS % (AUTO) 0.5 % (0.2-1.0); EOSINOPHILS % (AUTO) 0.5 % (0.9-2.9); HEMATOCRIT 27.2 % (36.0-47.0); HEMOGLOBIN 9.2 g/dL (12.0-16.0); LYMPHOCYTES # (AUTO) 0.1 X10^3/uL (1.3-2.9); LYMPHOCYTES % (AUTO) 1.6 % (21.0-51.0); MEAN CORPUSCULAR HEMOGLOBIN 36.8 pg (27.0-34.0); MEAN CORPUSCULAR HGB CONC 33.6 g/dL (33.0-35.0); MEAN CORPUSCULAR VOLUME 109.4 fL (80.0-100.0); MEAN PLATELET VOLUME 7.9 fL (7.4-11.0); MONOCYTES # (AUTO) 0.1 x10^3/uL (0.3-0.8); MONOCYTES % (AUTO) 1.7 % (0.0-13.0); NEUTROPHILS % (AUTO) 95.7 % (42.0-75.0); PLATELET COUNT 284 X10^3/uL (150.0-450.0); RED BLOOD COUNT 2.49 X10^6/uL (3.5-5.4); RED CELL DISTRIBUTION WIDTH 14.7 % (11.6-16.5); WHITE BLOOD COUNT 5.3 X10^3/uL (3.6-10.0)
[2017-08-07 06:49] LABS: ALANINE AMINOTRANSFERASE 25 Units/L (12-78); ALBUMIN 2.6 g/dL (3.4-5.0); ALKALINE PHOSPHATASE 86 Units/L (46-116); ASPARTATE AMINO TRANSFERASE 12 Units/L (15-37); BLOOD UREA NITROGEN 34 mg/dL (7-18); CALCIUM 8.8 mg/dL (8.5-10.1); CARBON DIOXIDE 30.5 mmol/L (21-32); CHLORIDE 106 mmol/L (98-107); COR CA(FOR HYPOALB) 9.9 mg/dL (8.5-10.1); CREATININE 1.57 mg/dL (0.55-1.02); SODIUM 145 mmol/L (136-145); TOTAL PROTEIN 6.7 g/dL (6.4-8.2); eGFR BLACK RACES 41 (>60); eGFR NON BLACK RACES 34 (>60)
[2017-08-07 07:03] LABS: BAND NEUTROPHILS % 10 % (0-10); PLATELET MORPHOLOGY COMMENT NORMAL (NORMAL)
[2017-08-07] MEDS: XOPENEX 1.25 MG/3 ML NEBULE NEB SCH ×4 (09:28→22:08)
[2017-08-07] MEDS: ALBUMIN HUMAN 25%- 100ML 100 ML IV SCH (09:33)
[2017-08-07] MEDS: LASIX IVP SCH ×2 (09:33→22:40)
[2017-08-07] MEDS: VANCOMYCIN HCL 1 GM VIAL 1 GM in D5W 250 ML IV 250 ML IV SCH (10:23)
[2017-08-07] MEDS: SYNTHROID 75 mcg TAB PO SCH (10:23)
[2017-08-07] MEDS: CARDIZEM CD 180 MG PO SCH (10:24)
[2017-08-07] MEDS: IMURAN PO SCH (10:29)
[2017-08-07] MEDS: HEMOCYTE-PLUS PO SCH (10:29)
[2017-08-07] MEDS: EFFEXOR XR 150 MG CAP PO SCH (10:29)
[2017-08-07] MEDS: MOBIC TAB 15 MG PO SCH (10:30)
[2017-08-07] MEDS: PREDNISONE TAB 20 MG PO SCH ×2 (10:30→22:58)
[2017-08-07] MEDS: PROTONIX TAB 40 MG PO SCH (10:35)
[2017-08-07] MEDS: XARELTO PO SCH (10:35)
[2017-08-07] MEDS: VITAMIN D3 PO SCH (10:36)
[2017-08-07] MEDS: LEVAQUIN PREMIX IV 250 MG 250 MG/50 ML BAG IV SCH (22:40)
[2017-08-07] MEDS: ZyrTEC TAB 10 MG PO SCH (22:58)
[2017-08-08] MEDS: VISTARIL PO PRN (03:55)
--- NOTE | 2017-08-08 05:43 | RAD ---
Examination: Portable AP chest History: SOB Comparison 08/07/2017 Findings: Continued normal heart size with bilateral infiltrates, greatest at the left lower lobe. No complicating pneumothorax seen. Impression: No change in appearance of heart or lungs since 1 day earlier. Reported By:
[2017-08-08 06:01] LABS: BASOPHILS % (AUTO) 0.2 % (0.2-1.0); EOSINOPHILS % (AUTO) 0.8 % (0.9-2.9); HEMATOCRIT 28.3 % (36.0-47.0); HEMOGLOBIN 9.9 g/dL (12.0-16.0); LYMPHOCYTES # (AUTO) 0.1 X10^3/uL (1.3-2.9); LYMPHOCYTES % (AUTO) 2.2 % (21.0-51.0); MEAN CORPUSCULAR HEMOGLOBIN 37.6 pg (27.0-34.0); MEAN CORPUSCULAR HGB CONC 34.9 g/dL (33.0-35.0); MEAN CORPUSCULAR VOLUME 107.7 fL (80.0-100.0); MEAN PLATELET VOLUME 7.8 fL (7.4-11.0); MONOCYTES # (AUTO) 0.1 x10^3/uL (0.3-0.8); MONOCYTES % (AUTO) 1.2 % (0.0-13.0); NEUTROPHILS # (AUTO) 5.5 x10^3/uL (2.2-4.8); NEUTROPHILS % (AUTO) 95.6 % (42.0-75.0); PLATELET COUNT 315 X10^3/uL (150.0-450.0); RED BLOOD COUNT 2.63 X10^6/uL (3.5-5.4); RED CELL DISTRIBUTION WIDTH 14.4 % (11.6-16.5); WHITE BLOOD COUNT 5.8 X10^3/uL (3.6-10.0)
[2017-08-08] MEDS: NS 1000 ML 1,000 ML IV SCH ×2 (06:16→22:37)
[2017-08-08] MEDS: SYNTHROID 75 mcg TAB PO SCH (06:16)
[2017-08-08 06:22] LABS: ALANINE AMINOTRANSFERASE 23 Units/L (12-78); ALKALINE PHOSPHATASE 93 Units/L (46-116); ASPARTATE AMINO TRANSFERASE 11 Units/L (15-37); BLOOD UREA NITROGEN 36 mg/dL (7-18); CALCIUM 9.5 mg/dL (8.5-10.1); CARBON DIOXIDE 34.5 mmol/L (21-32); CHLORIDE 100 mmol/L (98-107); COR CA(FOR HYPOALB) 10.3 mg/dL (8.5-10.1); CREATININE 1.56 mg/dL (0.55-1.02); SODIUM 144 mmol/L (136-145); TOTAL PROTEIN 7.2 g/dL (6.4-8.2); eGFR BLACK RACES 41 (>60); eGFR NON BLACK RACES 34 (>60)
[2017-08-08 06:28] LABS: BAND NEUTROPHILS % 10 % (0-10)
[2017-08-08 06:29] LABS: PLATELET MORPHOLOGY COMMENT NORMAL (NORMAL); TOXIC GRANULATION 1+
[2017-08-08] MEDS: CARDIZEM CD 180 MG PO SCH ×2 (07:30→08:44)
[2017-08-08] MEDS ORDERED: PHARMACY COMMENT IV NR (08:30)
[2017-08-08] MEDS: ALBUMIN HUMAN 25%- 100ML 100 ML IV SCH (08:45)
[2017-08-08] MEDS: EFFEXOR XR 150 MG CAP PO SCH (09:16)
[2017-08-08] MEDS: LASIX IVP SCH ×2 (09:16→21:58)
[2017-08-08] MEDS: HEMOCYTE-PLUS PO SCH (09:16)
[2017-08-08] MEDS: MOBIC TAB 15 MG PO SCH (09:17)
[2017-08-08] MEDS: PROTONIX TAB 40 MG PO SCH (09:17)
[2017-08-08] MEDS: PREDNISONE TAB 20 MG PO SCH ×2 (09:17→21:59)
[2017-08-08] MEDS: XARELTO PO SCH (09:17)
[2017-08-08] MEDS: XOPENEX 1.25 MG/3 ML NEBULE NEB SCH ×4 (09:22→21:17)
[2017-08-08] MEDS: MORPHINE SULFATE INJ 2 MG INJ IVP PRN ×4 (09:35→23:04)
[2017-08-08 09:55] LABS: CREATININE 1.79 mg/dL (0.55-1.02); VANCOMYCIN,TROUGH 16.2 ug/mL (15-20)
[2017-08-08] MEDS: VANCOMYCIN HCL 1 GM VIAL 1 GM in D5W 250 ML IV 250 ML IV SCH (10:00)
[2017-08-08] MEDS: VITAMIN D3 PO SCH (10:58)
[2017-08-08] MEDS: IMURAN PO SCH ×2 (11:02→12:06)
[2017-08-08] MEDS: CARDIZEM INJ 125 MG VIAL 125 MG in NS 100 ML IV 100 ML IV PRN ×2 (15:00→17:24)
[2017-08-08] MEDS ORDERED: CARDIZEM INJ 50 MG VIAL ONE (15:17)
[2017-08-08] MEDS ORDERED: CARDIZEM INJ 50 MG VIAL IVP ONE (15:33)
[2017-08-08] MEDS: LEVAQUIN PREMIX IV 250 MG 250 MG/50 ML BAG IV SCH (21:58)
[2017-08-08] MEDS: ZyrTEC TAB 10 MG PO SCH (21:59)
[2017-08-09 05:54] LABS: BASOPHILS % (AUTO) 0.1 % (0.2-1.0); EOSINOPHILS % (AUTO) 0.1 % (0.9-2.9); HEMATOCRIT 28.7 % (36.0-47.0); HEMOGLOBIN 9.9 g/dL (12.0-16.0); LYMPHOCYTES # (AUTO) 0.2 X10^3/uL (1.3-2.9); LYMPHOCYTES % (AUTO) 2.3 % (21.0-51.0); MEAN CORPUSCULAR HEMOGLOBIN 36.7 pg (27.0-34.0); MEAN CORPUSCULAR HGB CONC 34.6 g/dL (33.0-35.0); MEAN PLATELET VOLUME 8.2 fL (7.4-11.0); MONOCYTES # (AUTO) 0.1 x10^3/uL (0.3-0.8); MONOCYTES % (AUTO) 1.1 % (0.0-13.0); NEUTROPHILS # (AUTO) 8.9 x10^3/uL (2.2-4.8); NEUTROPHILS % (AUTO) 96.4 % (42.0-75.0); PLATELET COUNT 381 X10^3/uL (150.0-450.0); RED BLOOD COUNT 2.71 X10^6/uL (3.5-5.4); RED CELL DISTRIBUTION WIDTH 14.6 % (11.6-16.5); WHITE BLOOD COUNT 9.3 X10^3/uL (3.6-10.0)
[2017-08-09] MEDS: NS 1000 ML 1,000 ML IV SCH ×4 (06:17→22:00)
[2017-08-09 06:26] LABS: ALANINE AMINOTRANSFERASE 21 Units/L (12-78); ALBUMIN 2.8 g/dL (3.4-5.0); ALKALINE PHOSPHATASE 116 Units/L (46-116); ASPARTATE AMINO TRANSFERASE 17 Units/L (15-37); BLOOD UREA NITROGEN 42 mg/dL (7-18); CALCIUM 9.8 mg/dL (8.5-10.1); CHLORIDE 97 mmol/L (98-107); COR CA(FOR HYPOALB) 10.8 mg/dL (8.5-10.1); CREATININE 1.93 mg/dL (0.55-1.02); SODIUM 145 mmol/L (136-145); TOTAL PROTEIN 7.1 g/dL (6.4-8.2); eGFR BLACK RACES 32 (>60); eGFR NON BLACK RACES 27 (>60)
[2017-08-09 06:31] LABS: BAND NEUTROPHILS % 33 % (0-10); PLATELET MORPHOLOGY COMMENT NORMAL (NORMAL)
--- NOTE | 2017-08-09 07:00 | RAD ---
Examination: AP chest History: Weakness, SOB Comparison reference 08/08/2017 Findings: Stable cardiac size. Increasing opacity left lower chest, obscuring the left lower heart hanna rder, diaphragm and costophrenic angle. Minimal infiltrate is stable at the right lower lung. No pneu mothorax seen. Impression: Increasing opacification left lower chest consistent with progression of airspace disease and probable left pleural effusion. Reported By:
[2017-08-09] MEDS: MORPHINE SULFATE INJ 2 MG INJ IVP PRN ×3 (07:30→18:20)
[2017-08-09] MEDS: CARDIZEM INJ 125 MG VIAL 125 MG in NS 100 ML IV 100 ML IV PRN (08:22)
[2017-08-09] MEDS: XOPENEX 1.25 MG/3 ML NEBULE NEB SCH ×4 (09:12→21:48)
[2017-08-09] MEDS ORDERED: POTASSIUM CHLORIDE LIQ 20 MEQ UDC PO PRN (10:11)
[2017-08-09] MEDS ORDERED: K-RIDER 10 MEQ/NS 100 ML 10 MEQ/100 ML BAG IV PRN (10:11)
[2017-08-09] MEDS ORDERED: K-LYTE EFFERVESCENT PO PRN (10:11)
[2017-08-09] MEDS: VANCOMYCIN HCL 1 GM VIAL 1 GM in D5W 250 ML IV 250 ML IV SCH (10:14)
[2017-08-09] MEDS: ALBUMIN HUMAN 25%- 100ML 100 ML IV SCH (10:14)
[2017-08-09] MEDS: CARDIZEM CD 180 MG PO SCH (10:15)
[2017-08-09] MEDS: LASIX IVP SCH ×2 (10:16→21:00)
[2017-08-09] MEDS ORDERED: NS 500 ML IV 500 ML IV ONE (10:31)
[2017-08-09] MEDS: COLACE CAP 100 MG PO SCH ×2 (11:28→21:00)
[2017-08-09] MEDS: XARELTO PO SCH (11:29)
[2017-08-09] MEDS: VITAMIN D3 PO SCH (11:29)
[2017-08-09] MEDS: MOBIC TAB 15 MG PO SCH (11:30)
[2017-08-09] MEDS: PROTONIX TAB 40 MG PO SCH (11:30)
[2017-08-09] MEDS: PREDNISONE TAB 20 MG PO SCH ×2 (11:31→21:00)
[2017-08-09] MEDS: MILK OF MAGNESIA PO SCH ×2 (11:32→21:00)
[2017-08-09] MEDS: EFFEXOR XR 150 MG CAP PO SCH (11:34)
[2017-08-09] MEDS: IMURAN PO SCH (11:34)
[2017-08-09] MEDS: HEMOCYTE-PLUS PO SCH (11:34)
[2017-08-09] MEDS: SYNTHROID 75 mcg TAB PO SCH (11:35)
[2017-08-09] MEDS: POTASSIUM CHL 40 MEQ/NS 0.45% 500 ML IV PRN (13:13)
[2017-08-09] MEDS: MAGNESIUM SULFATE 1 GM/100 mL PREMIX 1 GM/100 ML BAG IV PRN ×3 (14:00→16:11)
[2017-08-09] MEDS: LEVAQUIN PREMIX IV 250 MG 250 MG/50 ML BAG IV SCH (21:00)
[2017-08-09] MEDS: ZyrTEC TAB 10 MG PO SCH (21:00)
--- NOTE | 2017-08-09 21:07 | PCM.PROG ---
Progress Note - Progress Note for Day of Date: 08/06/17 - Subjective Subjective: IS BEING TREATED FOR GENERALIZED WEAKNESS AND HYPOTENSION FOLLOWING A FALL AT HOME. SHE REMAINS IN THE INTENSIVE CARE UNIT FOR CLOSE MONITORING. TODAY, SHE IS LYING IN BED WITH EYES CLOSED ON MORNING ROUNDS. SHE IS MOANING. FAMILY REPORTS THAT SHE HAS BEEN IN THIS STATE ALL NIGHT. ON EXAMINATION, SHE CONTINUES TO BE IN ATRIAL FIBRILLATION WITH HR IN THE 130S. BILATERAL LUNGS CONTINUE WITH SCATTERED WHEEZING AND RHONCHI THROUGHOUT. ABDOMEN IS ROUND, SOFT, AND NON-TENDER WITH NORMAL BOWEL SOUNDS NOTED IN ALL QUADRANTS. RIGHT ELBOW CONTINUES WITH REDNESS AND GENERALIZED EDEMA TO THE AREA. HER VITALS THIS MORNING ARE 98.0-135-19-97%-166/82. LABS WERE OBTAINED. ABNORMAL LAB VALUES INCLUDE THE FOLLOWING: RBC 2.40, HGB 8.9, HCT 26.2, CHLORIDE 110, BUN 31, CREATININE 1.40, CALCIUM 8.3, TOTAL PROTEIN 6.0, ALBUMIN 2.2. A CHEST XRAY WAS OBTAINED TODAY AND REVEALED MILD TO MODERATE PULMONARY VASCULAR CONGESTION. INCREASING OPACIFICATION IN THE LEFT LUNG BASE SUGGESTING ATELECTATIC CHANGE/INFILTRATE AND/OR EFFUSION. THIS MAY BE DUE TO UNDERLYING PNEUMONIA. TODAY, WE WILL START LASIX 40MG IV Q12H AND GIVE LANOXIN 0.25MG IV X 1 DOSE FOR INCREASED HEART RATE. OTHERWISE, WE WILL CONTINUE TO FOLLOW UP WITH AM LABS AND CONTINUE TO MONITOR PATIENT. - Past Medical Family Social History Past Med/Fam/Surg Hx: No changes since H&P Allergies: Allergies zolpidem [From Ambien] Allergy (Verified 08/03/17 09:12) - Review of Systems ROS: No change since H&P - Vital Signs and I&O's Vital Signs: Temperature 98.9 F Pulse Rate [Left Brachial] 107 Pulse Rate [Apical] 85 Pulse Rate 113 Respiratory Rate 22 Blood Pressure [Right Arm] 141/60 Blood Pressure [Left Arm] 178/83 Blood Pressure 169/87 O2 Sat by Pulse Oximetry 92 Intake and Output: Intake & Output 08/07/17 08/08/17 08/09/17 08/10/17 11:59 11:59 11:59 11:59 Intake Total 841 7226 317 7302 Output Total 2175 3350 1400 850 Balance -9615 -1061 -407 485 - Physical Exam Oriented: Unable to test Eyes: Normal Ear: Normal Nose: Normal Throat: Normal Respiratory: Right, Left, Generalized, Wheezes, Rhonchi Cardiovascular: Tachycardia : Normal Auscultation: Bowel Sounds: Normal Palpation: Normal Tenderness: Normal Skin: Red, Tender, Wound (RIGHT ELBOW ABRASION, REDNESS, DECREASED ROM) Musculoskeletal: Right, Shoulder, Elbow, Tender Psychiatric: Other (DROWSY) - Laboratory and Diagnostics Result Diagrams: 08/09/17 05:20 08/09/17 05:20 Labs: 08/06/17 12:25 Sputum - Expectorated Sputum Sputum Culture - Preliminary 08/06/17 12:25 Sputum - Expectorated Sputum - Final 08/04/17 21:06 Elbow - Right Gram Stain - Final 08/04/17 21:06 Elbow - Right Wound Culture - Final Staphylococcus Aureus Laboratory WBC 9.3 X10^3/uL (3.6-10.0) 08/09/17 05:20 RBC 2.71 X10^6/uL (3.5-5.4) L 08/09/17 05:20 Hgb 9.9 g/dL (12.0-16.0) L 08/09/17 05:20 Hct 28.7 % (36.0-47.0) L 08/09/17 05:20 MCV 106.0 fL (80.0-100.0) H 08/09/17 05:20 MCH 36.7 pg (27.0-34.0) H 08/09/17 05:20 MCHC 34.6 g/dL (33.0-35.0) 08/09/17 05:20 RDW 14.6 % (11.6-16.5) 08/09/17 05:20 Plt Count 381 X10^3/uL (150.0-450.0) 08/09/17 05:20 Plt Count Comment Increased (ADEQUATE) A 08/09/17 05:20 MPV 8.2 fL (7.4-11.0) 08/09/17 05:20 Neut % (Auto) 96.4 % (42.0-75.0) H 08/09/17 05:20 Lymph % (Auto) 2.3 % (21.0-51.0) L 08/09/17 05:20 [place] % (Auto) 1.1 % (0.0-13.0) 08/09/17 05:20 Eos % (Auto) 0.1 % (0.9-2.9) L 08/09/17 05:20 Baso % (Auto) 0.1 % (0.2-1.0) L 08/09/17 05:20 Neut # (Auto) 8.9 x10^3/uL (2.2-4.8) H 08/09/17 05:20 Lymph # (Auto) 0.2 X10^3/uL (1.3-2.9) L 08/09/17 05:20 [place] # (Auto) 0.1 x10^3/uL (0.3-0.8) L 08/09/17 05:20 Eos # (Auto) 0.0 x10^3/uL (0.0-0.2) 08/09/17 05:20 Baso # (Auto) 0.0 X10^3/uL (0.0-0.1) 08/09/17 05:20 Absolute Nucleated RBC 0.4 /100WBC 08/09/17 05:20 Total Counted 100 08/09/17 05:20 Neutrophils % (Manual) 64 % (39-76) 08/09/17 05:20 Band Neutrophils % 33 % (0-10) H 08/09/17 05:20 Lymphocytes % (Manual) 2 % (13-43) L 08/09/17 05:20 Monocytes % (Manual) 3 % (4-9) L 08/08/17 05:15 Eosinophils % (Manual) 1 % (0-6) 08/09/17 05:20 Toxic Granulation 1+ A 08/08/17 05:15 Plt Morphology Comment Normal (NORMAL) 08/09/17 05:20 RBC Morphology Normal (NORMAL) 08/09/17 05:20 Macrocytosis 1+ A 08/08/17 05:15 Sample Site Right radial 08/05/17 10:09 ABG pH 7.420 (7.35-7.45) 08/05/17 10:09 ABG pCO2 37.0 mmHg (35.0-45.0) 08/05/17 10:09 ABG pO2 68.0 mmHg (80.0-100.0) L 08/05/17 10:09 ABG HCO3 24.0 mmol/L (22-26) 08/05/17 10:09 ABG O2 Saturation 94.0 % (90-100) 08/05/17 10:09 ABG Base Excess -0.2 mmol/L (-2.0-2.0) 08/05/17 10:09 Ruperto Test Pos 08/05/17 10:09 A-a Gradient 85.0 mmHg 08/05/17 10:09 FiO2 28.000 08/05/17 10:09 Blood Gas Comments Diya well aw 08/05/17 10:09 Sodium 145 mmol/L (136-145) 08/09/17 05:20 Corrected Sodium TNP 08/09/17 05:20 Potassium 3.1 mmol/L (3.5-5.1) L 08/09/17 05:20 Chloride 97 mmol/L (98-107) L 08/09/17 05:20 Carbon Dioxide 39.0 mmol/L (21-32) H 08/09/17 05:20 BUN 42 mg/dL (7-18) H 08/09/17 05:20 Creatinine 1.93 mg/dL (0.55-1.02) H 08/09/17 05:20 Est GFR (MDRD) Af Amer 32 (>60) L 08/09/17 05:20 Est GFR (MDRD) Non-Af 27 (>60) L 08/09/17 05:20 Glucose 103 mg/dL (65-99) H 08/09/17 05:20 Calcium 9.8 mg/dL (8.5-10.1) 08/09/17 05:20 Corrected Calcium 10.8 mg/dL (8.5-10.1) H 08/09/17 05:20 Magnesium 1.3 mg/dL (1.7-2.9) L 08/09/17 05:20 Total Bilirubin 0.70 mg/dL (0.2-1.0) 08/09/17 05:20 AST 17 Units/L (15-37) 08/09/17 05:20 ALT 21 Units/L (12-78) 08/09/17 05:20 Alkaline Phosphatase 116 Units/L (46-116) 08/09/17 05:20 Creatine Kinase 106 Units/L (26-192) 08/05/17 01:05 CK-MB (CK-2) 2.7 ng/mL (0-4.0) 08/05/17 01:05 CK/CKMB % Calc 2.6 % (<4) 08/05/17 01:05 Troponin I 0.03 ng/mL (0-1.5) 08/05/17 01:05 B-Natriuretic Peptide 939 pg/mL (0-79) H* 08/05/17 14:55 Total Protein 7.1 g/dL (6.4-8.2) 08/09/17 05:20 Albumin 2.8 g/dL (3.4-5.0) L 08/09/17 05:20 Globulin 4.3 g/dL (2.5-4.5) 08/09/17 05:20 Albumin/Globulin Ratio 0.7 Ratio (1.1-2.1) L 08/09/17 05:20 Specimen Type Catherized urine 08/05/17 07:22 Urine Color Yellow (YELLOW) 08/05/17 07:22 Urine Appearance Slightly hazy (CLEAR) 08/05/17 07:22 Urine pH 5.0 (5.0 - 8.0) 08/05/17 07:22 Ur Specific [place] 1.020 (1.000-1.030) 08/05/17 07:22 Urine Protein 2+ (NEGATIVE) 08/05/17 07:22 Urine Glucose (UA) Negative (NEGATIVE) 08/05/17 07:22 Urine Ketones Negative (NEGATIVE) 08/05/17 07:22 Urine Occult Blood 2+ (NEGATIVE) 08/05/17 07:22 Urine Nitrite Negative (NEGATIVE) 08/05/17 07:22 Urine Bilirubin Negative (NEGATIVE) 08/05/17 07:22 Urine Urobilinogen Normal (NORMAL) 08/05/17 07:22 Ur Leukocyte Esterase Negative (NEGATIVE) 08/05/17 07:22 Urine RBC 2-5 /HPF (NONE SEEN) 08/05/17 07:22 Urine WBC 0-3 /HPF (NONE SEEN) 08/05/17 07:22 Ur Squamous Epith Cells Few /HPF (NEGATIVE) 08/05/17 07:22 Amorphous Sediment Trace /HPF (NEGATIVE) 08/05/17 07:22 Urine Bacteria Negative /HPF (NEGATIVE) 08/05/17 07:22 Granular Casts Few /LPF (NEGATIVE) 08/05/17 07:22 Urine Mucus Few /HPF (NEGATIVE) 08/05/17 07:22 Ur Culture Indicated? 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, CONTINUE TO MONITOR (2) CHF (congestive heart failure) Status: Acute Qualifiers: Qualified Code(s): I50.41 - Acute combined systolic (congestive) and diastolic (congestive) heart failure Plan: LASIX 40MG IV Q12H, CONTINUE NEB TX, SUPPLEMENTAL OXYGEN, CONTINUE TO MONITOR (3) Cellulitis of right elbow Status: Acute Plan: VANCOMYCIN 1GM IV DAILY, CONTINUE TO MONITOR (4) Generalized weakness Status: Acute Plan: NORMAL SALINE AT 125ML/HR, SERIAL CARDIAC ENZYMES AND EKG, CONTINUE TO MONITOR (5) Shortness of breath Status: Acute Plan: CONTINUE SUPPLEMENTAL OXYGEN, CHECK ABG, CHEST XRAY, CONTINUE TO MONITOR (6) Elbow pain Status: Acute Qualifiers: Laterality: right Qualified Code(s): M25.521 - Pain in right elbow Plan: OBTAIN WOUND CULTURE, CONTINUE TO MONITOR (7) Mental status alteration Status: Acute Qualifiers: Altered mental status type: transient alteration of awareness Qualified Code(s): R40.4 - Transient alteration of awareness Plan: OBTAIN BRAIN CT, CONTINUE TO MONITOR (8) Anemia Status: Chronic Qualifiers: Anemia type: iron deficiency Iron deficiency anemia type: inadequate dietary iron intake Qualified Code(s): D50.8 - Other iron deficiency anemias Plan: CONTINUE HEMOCYTE PLUS, CONTINUE TO MONITOR (9) Depression Status: Chronic Qualifiers: Depression Type: major depressive disorder Major depression recurrence: recurrent Active/Remission status: remission status unspecified Qualified Code(s): F33.9 - Major depressive disorder, recurrent, unspecified Plan: CONTINUE EFFEXOR, CONTINUE TO MONITOR (10) GERD (gastroesophageal reflux disease) Status: Chronic Qualifiers: Esophagitis presence: esophagitis presence not specified Qualified Code(s) : K21.9 - Gastro-esophageal reflux disease without esophagitis Plan: CONTINUE PROTONIX, CONTINUE TO MONITOR
--- NOTE | 2017-08-09 21:18 | PCM.PROG ---
Progress Note - Progress Note for Day of Date: 08/07/17 - Subjective Subjective: IS BEING TREATED FOR GENERALIZED WEAKNESS AND HYPOTENSION FOLLOWING A FALL AT HOME. SHE REMAINS IN THE INTENSIVE CARE UNIT FOR CLOSE MONITORING. TODAY, SHE IS LYING IN BED WITH EYES CLOSED ON MORNING ROUNDS. FAMILY REPORTS THAT PATIENT HAS BEEN AGITATED THROUGHOUT THE NIGHT AND PULLING AT MEDICAL EQUIPMENT, HOWEVER, SHE ONLY RESPONDS TO PAINFUL STIMULI THIS MORNING. ON EXAMINATION, SHE CONTINUES TO BE IN ATRIAL FIBRILLATION, RATE CONTROLLED AT THIS TIME. BILATERAL LUNGS CONTINUE WITH SCATTERED WHEEZING AND RHONCHI THROUGHOUT. ABDOMEN IS ROUND, SOFT, AND NON-TENDER WITH NORMAL BOWEL SOUNDS NOTED IN ALL QUADRANTS. RIGHT ELBOW CONTINUES WITH REDNESS AND GENERALIZED EDEMA TO THE AREA. HER VITALS THIS MORNING ARE 97.8-98-18-97%-195/ 91. LABS WERE OBTAINED. ABNORMAL LAB VALUES INCLUDE THE FOLLOWING: RBC 2.49, HGB 9.2, HCT 27.2, BUN 34, CREATININE 1.57, GLUCOSE 102, AST 12, ALBUMIN 2.6. WOUND CULTURE OF RIGHT ELBOW REPORTED GROWTH OF STAPHYLOCOCCUS AUREUS. IT IS SENSITIVE TO THE VANCOMYCIN THAT SHE IS CURRENTLY ON. A CHEST XRAY WAS OBTAINED TODAY AND REVEALED NO SIGNIFICANT CHANGE FROM YESTERDAY. TODAY, WE WILL START LEVAQUIN 250MG IV DAILY. OTHERWISE, WE WILL CONTINUE TO FOLLOW UP WITH AM LABS AND CONTINUE TO MONITOR PATIENT. - Past Medical Family Social History Past Med/Fam/Surg Hx: No changes since H&P Allergies: Allergies zolpidem [From Ambien] Allergy (Verified 08/03/17 09:12) - Review of Systems ROS: No change since H&P - Vital Signs and I&O's Vital Signs: Temperature 98.9 F Pulse Rate [Left Brachial] 107 Pulse Rate [Apical] 85 Pulse Rate 113 Respiratory Rate 22 Blood Pressure [Right Arm] 141/60 Blood Pressure [Left Arm] 178/83 Blood Pressure 169/87 O2 Sat by Pulse Oximetry 92 Intake and Output: Intake & Output 08/07/17 08/08/17 08/09/17 08/10/17 11:59 11:59 11:59 11:59 Intake Total 841 3383 718 6381 Output Total 7971 6230 1400 850 [facility] [phone] - Physical Exam Oriented: Unable to test Eyes: Normal Ear: Normal Nose: Normal Throat: Normal Respiratory: Right, Left, Generalized, Wheezes, Rhonchi Cardiovascular: Tachycardia : Normal Auscultation: Bowel Sounds: Normal Palpation: Normal Tenderness: Normal Skin: Red, Tender, Wound (RIGHT ELBOW ABRASION, REDNESS, DECREASED ROM) Musculoskeletal: Right, Shoulder, Elbow, Tender Psychiatric: Other (DROWSY) Mood Description: Calm Affect: Normal Speech Pattern: Clear, Appropriate - Laboratory and Diagnostics Result Diagrams: 08/09/17 05:20 08/09/17 05:20 Labs: 08/06/17 12:25 Sputum - Expectorated Sputum Sputum Culture - Preliminary 08/06/17 12:25 Sputum - Expectorated Sputum - Final 08/04/17 21:06 Elbow - Right Gram Stain - Final 08/04/17 21:06 Elbow - Right Wound Culture - Final Staphylococcus Aureus Laboratory WBC 9.3 X10^3/uL (3.6-10.0) 08/09/17 05:20 RBC 2.71 X10^6/uL (3.5-5.4) L 08/09/17 05:20 Hgb 9.9 g/dL (12.0-16.0) L 08/09/17 05:20 Hct 28.7 % (36.0-47.0) L 08/09/17 05:20 MCV 106.0 fL (80.0-100.0) H 08/09/17 05:20 MCH 36.7 pg (27.0-34.0) H 08/09/17 05:20 MCHC 34.6 g/dL (33.0-35.0) 08/09/17 05:20 RDW 14.6 % (11.6-16.5) 08/09/17 05:20 Plt Count 381 X10^3/uL (150.0-450.0) 08/09/17 05:20 Plt Count Comment Increased (ADEQUATE) A 08/09/17 05:20 MPV 8.2 fL (7.4-11.0) 08/09/17 05:20 Neut % (Auto) 96.4 % (42.0-75.0) H 08/09/17 05:20 Lymph % (Auto) 2.3 % (21.0-51.0) L 08/09/17 05:20 [place] % (Auto) 1.1 % (0.0-13.0) 08/09/17 05:20 Eos % (Auto) 0.1 % (0.9-2.9) L 08/09/17 05:20 Baso % (Auto) 0.1 % (0.2-1.0) L 08/09/17 05:20 Neut # (Auto) 8.9 x10^3/uL (2.2-4.8) H 08/09/17 05:20 Lymph # (Auto) 0.2 X10^3/uL (1.3-2.9) L 08/09/17 05:20 [place] # (Auto) 0.1 x10^3/uL (0.3-0.8) L 08/09/17 05:20 Eos # (Auto) 0.0 x10^3/uL (0.0-0.2) 08/09/17 05:20 Baso # (Auto) 0.0 X10^3/uL (0.0-0.1) 08/09/17 05:20 Absolute Nucleated RBC 0.4 /100WBC 08/09/17 05:20 Total Counted 100 08/09/17 05:20 Neutrophils % (Manual) 64 % (39-76) 08/09/17 05:20 Band Neutrophils % 33 % (0-10) H 08/09/17 05:20 Lymphocytes % (Manual) 2 % (13-43) L 08/09/17 05:20 Monocytes % (Manual) 3 % (4-9) L 08/08/17 05:15 Eosinophils % (Manual) 1 % (0-6) 08/09/17 05:20 Toxic Granulation 1+ A 08/08/17 05:15 Plt Morphology Comment Normal (NORMAL) 08/09/17 05:20 RBC Morphology Normal (NORMAL) 08/09/17 05:20 Macrocytosis 1+ A 08/08/17 05:15 Sample Site Right radial 08/05/17 10:09 ABG pH 7.420 (7.35-7.45) 08/05/17 10:09 ABG pCO2 37.0 mmHg (35.0-45.0) 08/05/17 10:09 ABG pO2 68.0 mmHg (80.0-100.0) L 08/05/17 10:09 ABG HCO3 24.0 mmol/L (22-26) 08/05/17 10:09 ABG O2 Saturation 94.0 % (90-100) 08/05/17 10:09 ABG Base Excess -0.2 mmol/L (-2.0-2.0) 08/05/17 10:09 Ruperto Test Pos 08/05/17 10:09 A-a Gradient 85.0 mmHg 08/05/17 10:09 FiO2 28.000 08/05/17 10:09 Blood Gas Comments Diya well aw 08/05/17 10:09 Sodium 145 mmol/L (136-145) 08/09/17 05:20 Corrected Sodium TNP 08/09/17 05:20 Potassium 3.1 mmol/L (3.5-5.1) L 08/09/17 05:20 Chloride 97 mmol/L (98-107) L 08/09/17 05:20 Carbon Dioxide 39.0 mmol/L (21-32) H 08/09/17 05:20 BUN 42 mg/dL (7-18) H 08/09/17 05:20 Creatinine 1.93 mg/dL (0.55-1.02) H 08/09/17 05:20 Est GFR (MDRD) Af Amer 32 (>60) L 08/09/17 05:20 Est GFR (MDRD) Non-Af 27 (>60) L 08/09/17 05:20 Glucose 103 mg/dL (65-99) H 08/09/17 05:20 Calcium 9.8 mg/dL (8.5-10.1) 08/09/17 05:20 Corrected Calcium 10.8 mg/dL (8.5-10.1) H 08/09/17 05:20 Magnesium 1.3 mg/dL (1.7-2.9) L 08/09/17 05:20 Total Bilirubin 0.70 mg/dL (0.2-1.0) 08/09/17 05:20 AST 17 Units/L (15-37) 08/09/17 05:20 ALT 21 Units/L (12-78) 08/09/17 05:20 Alkaline Phosphatase 116 Units/L (46-116) 08/09/17 05:20 Creatine Kinase 106 Units/L (26-192) 08/05/17 01:05 CK-MB (CK-2) 2.7 ng/mL (0-4.0) 08/05/17 01:05 CK/CKMB % Calc 2.6 % (<4) 08/05/17 01:05 Troponin I 0.03 ng/mL (0-1.5) 08/05/17 01:05 B-Natriuretic Peptide 939 pg/mL (0-79) H* 08/05/17 14:55 Total Protein 7.1 g/dL (6.4-8.2) 08/09/17 05:20 Albumin 2.8 g/dL (3.4-5.0) L 08/09/17 05:20 Globulin 4.3 g/dL (2.5-4.5) 08/09/17 05:20 Albumin/Globulin Ratio 0.7 Ratio (1.1-2.1) L 08/09/17 05:20 Specimen Type Catherized urine 08/05/17 07:22 Urine Color Yellow (YELLOW) 08/05/17 07:22 Urine Appearance Slightly hazy (CLEAR) 08/05/17 07:22 Urine pH 5.0 (5.0 - 8.0) 08/05/17 07:22 Ur Specific [place] 1.020 (1.000-1.030) 08/05/17 07:22 Urine Protein 2+ (NEGATIVE) 08/05/17 07:22 Urine Glucose (UA) Negative (NEGATIVE) 08/05/17 07:22 Urine Ketones Negative (NEGATIVE) 08/05/17 07:22 Urine Occult Blood 2+ (NEGATIVE) 08/05/17 07:22 Urine Nitrite Negative (NEGATIVE) 08/05/17 07:22 Urine Bilirubin Negative (NEGATIVE) 08/05/17 07:22 Urine Urobilinogen Normal (NORMAL) 08/05/17 07:22 Ur Leukocyte Esterase Negative (NEGATIVE) 08/05/17 07:22 Urine RBC 2-5 /HPF (NONE SEEN) 08/05/17 07:22 Urine WBC 0-3 /HPF (NONE SEEN) 08/05/17 07:22 Ur Squamous Epith Cells Few /HPF (NEGATIVE) 08/05/17 07:22 Amorphous Sediment Trace /HPF (NEGATIVE) 08/05/17 07:22 Urine Bacteria Negative /HPF (NEGATIVE) 08/05/17 07:22 Granular Casts Few /LPF (NEGATIVE) 08/05/17 07:22 Urine Mucus Few /HPF (NEGATIVE) 08/05/17 07:22 Ur Culture Indicated? 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, RUBBER COMPOUNDER MIXER, CONTINUE TO MONITOR (2) CHF (congestive heart failure) Status: Acute Qualifiers: Qualified Code(s): I50.41 - Acute combined systolic (congestive) and diastolic (congestive) heart failure Plan: LASIX 40MG IV Q12H, CONTINUE NEB TX, SUPPLEMENTAL OXYGEN, CONTINUE TO MONITOR (3) Pneumonia Status: Acute Qualifiers: Pneumonia type: due to Pseudomonas Laterality: bilateral Lung location: lower lobe of lung Qualified Code(s): J15.1 - Pneumonia due to Pseudomonas Plan: LEVAQUIN 250MG IV DAILY, CONTINUE BREATHING TREATMENTS, SUPPLEMENTAL OXYGEN, CONTINUE TO MONITOR (4) Cellulitis of right elbow Status: Acute Plan: VANCOMYCIN 1GM IV DAILY, CONTINUE TO MONITOR (5) Generalized weakness Status: Acute Plan: NORMAL SALINE AT 125ML/HR, SERIAL CARDIAC ENZYMES AND EKG, CONTINUE TO MONITOR (6) Shortness of breath Status: Acute Plan: CONTINUE SUPPLEMENTAL OXYGEN, CHECK ABG, CHEST XRAY, CONTINUE TO MONITOR (7) Elbow pain Status: Acute Qualifiers: Laterality: right Qualified Code(s): M25.521 - Pain in right elbow Plan: OBTAIN WOUND CULTURE, CONTINUE TO MONITOR (8) Mental status alteration Status: Acute Qualifiers: Altered mental status type: transient alteration of awareness Qualified Code(s): R40.4 - Transient alteration of awareness Plan: CONTINUE TO MONITOR (9) Anemia Status: Chronic Qualifiers: Anemia type: iron deficiency Iron deficiency anemia type: inadequate dietary iron intake Qualified Code(s): D50.8 - Other iron deficiency anemias Plan: CONTINUE HEMOCYTE PLUS, CONTINUE TO MONITOR (10) Depression Status: Chronic Qualifiers: Depression Type: major depressive disorder Major depression recurrence: recurrent Active/Remission status: remission status unspecified Qualified Code(s): F33.9 - Major depressive disorder, recurrent, unspecified Plan: CONTINUE EFFEXOR, CONTINUE TO MONITOR (11) GERD (gastroesophageal reflux disease) Status: Chronic Qualifiers: Esophagitis presence: esophagitis presence not specified Qualified Code(s) : K21.9 - Gastro-esophageal reflux disease without esophagitis Plan: CONTINUE PROTONIX, CONTINUE TO MONITOR
[2017-08-10] MEDS: MORPHINE SULFATE INJ 2 MG INJ IVP PRN (01:23)
[2017-08-10] MEDS ORDERED: NS 100 ML IV 100 ML IV ONE (02:56)
[2017-08-10] MEDS: CARDIZEM INJ 125 MG VIAL 125 MG in NS 100 ML IV 100 ML IV PRN (03:06)
[2017-08-10 06:05] LABS: ALBUMIN 2.8 g/dL (3.4-5.0); CALCIUM 9.5 mg/dL (8.5-10.1); CARBON DIOXIDE 39.4 mmol/L (21-32); COR CA(FOR HYPOALB) 10.5 mg/dL (8.5-10.1); CREATININE 2.28 mg/dL (0.55-1.02); MAGNESIUM 2.6 mg/dL (1.7-2.9)
[2017-08-10 06:13] LABS: BASOPHILS % (AUTO) 0.1 % (0.2-1.0); EOSINOPHILS % (AUTO) 0.2 % (0.9-2.9); HEMATOCRIT 28.4 % (36.0-47.0); HEMOGLOBIN 9.9 g/dL (12.0-16.0); LYMPHOCYTES # (AUTO) 0.1 X10^3/uL (1.3-2.9); LYMPHOCYTES % (AUTO) 2.2 % (21.0-51.0); MEAN CORPUSCULAR HEMOGLOBIN 36.9 pg (27.0-34.0); MEAN CORPUSCULAR HGB CONC 34.8 g/dL (33.0-35.0); MEAN CORPUSCULAR VOLUME 106.1 fL (80.0-100.0); MEAN PLATELET VOLUME 8.3 fL (7.4-11.0); MONOCYTES # (AUTO) 0.1 x10^3/uL (0.3-0.8); MONOCYTES % (AUTO) 0.9 % (0.0-13.0); NEUTROPHILS # (AUTO) 6.1 x10^3/uL (2.2-4.8); NEUTROPHILS % (AUTO) 96.6 % (42.0-75.0); PLATELET COUNT 390 X10^3/uL (150.0-450.0); RED BLOOD COUNT 2.68 X10^6/uL (3.5-5.4); RED CELL DISTRIBUTION WIDTH 14.5 % (11.6-16.5); WHITE BLOOD COUNT 6.3 X10^3/uL (3.6-10.0)
[2017-08-10] MEDS: SYNTHROID 75 mcg TAB PO SCH ×2 (06:26→08:34)
[2017-08-10] MEDS: NS 1000 ML 1,000 ML IV SCH ×2 (06:26→22:00)
--- NOTE | 2017-08-10 06:38 | RAD ---
HISTORY: Shortness of breath. Prior history of cancer, [place], hypertension. Study: Single-view chest Comparison: 08/09/2017. Findings: Cardiac monitoring leads are noted on the chest. Trachea is midline. There is cardiomegaly with aorti c uncoiling. A changing pattern bibasilar infiltrates is seen with improvement in the left lower lobe and worsening in the right lower lobe. Left-sided pleural effusion is suspected. No pneumothorax is appreciated. Osseous structures are intact. IMPRESSION: Changing pattern of bibasilar infiltrates as noted above. A left-sided pleural effusion is suspected. Reported By:
[2017-08-10 06:40] LABS: BAND NEUTROPHILS % 14 % (0-10); PLATELET MORPHOLOGY COMMENT NORMAL (NORMAL)
[2017-08-10] MEDS: POTASSIUM CHL 40 MEQ/NS 0.45% 500 ML IV PRN (07:05)
[2017-08-10] MEDS ORDERED: VANCOMYCIN HCL 1 GM VIAL ONE (08:03)
[2017-08-10] MEDS: VANCOMYCIN HCL 1 GM VIAL 1 GM in D5W 250 ML IV 250 ML IV SCH (08:33)
[2017-08-10] MEDS: CARDIZEM CD 180 MG PO SCH (08:34)
[2017-08-10] MEDS: HEMOCYTE-PLUS PO SCH (08:34)
[2017-08-10] MEDS: PREDNISONE TAB 20 MG PO SCH ×2 (08:35→21:00)
[2017-08-10] MEDS: EFFEXOR XR 150 MG CAP PO SCH (08:35)
[2017-08-10] MEDS: MOBIC TAB 15 MG PO SCH (08:35)
[2017-08-10] MEDS: ALBUMIN HUMAN 25%- 100ML 100 ML IV SCH (08:36)
[2017-08-10] MEDS: PROTONIX TAB 40 MG PO SCH (08:36)
[2017-08-10] MEDS: VITAMIN D3 PO SCH (08:37)
[2017-08-10] MEDS: IMURAN PO SCH (08:38)
[2017-08-10] MEDS: XOPENEX 1.25 MG/3 ML NEBULE NEB SCH ×4 (08:42→22:31)
[2017-08-10] MEDS: XARELTO PO SCH (09:04)
[2017-08-10] MEDS: COLACE CAP 100 MG PO SCH (21:00)
[2017-08-10] MEDS: MILK OF MAGNESIA PO SCH (21:00)
[2017-08-10] MEDS: ZyrTEC TAB 10 MG PO SCH (21:00)
--- NOTE | 2017-08-10 21:34 | PCM.PROG ---
Progress Note - Progress Note for Day of Date: 08/08/17 - Subjective Subjective: IS BEING TREATED FOR GENERALIZED WEAKNESS, ATRIAL FIBRILLATION, COPD EXACERBATION, AND CHF. SHE REMAINS IN THE INTENSIVE CARE UNIT FOR CLOSE MONITORING. TODAY, SHE IS LYING IN BED WITH EYES CLOSED ON MORNING ROUNDS. SHE AWAKENS, BUT IS DISORIENTED. SHE RESPONDS TO SIMPLE QUESTIONS. FAMILY REPORTS THAT PATIENT HAS CONTINUED WITH AGITATION THROUGHOUT THE NIGHT. ON EXAMINATION, SHE CONTINUES TO BE IN ATRIAL FIBRILLATION, RATE CONTROLLED AT THIS TIME. BILATERAL LUNGS CONTINUE WITH SCATTERED WHEEZING AND RHONCHI THROUGHOUT. SHE IS CURRENTLY UTILIZING HIGH FLOW HEATED OXYGEN AT 65%. ABDOMEN IS ROUND, SOFT, AND NON-TENDER WITH NORMAL BOWEL SOUNDS NOTED IN ALL QUADRANTS. RIGHT ELBOW CONTINUES WITH REDNESS AND GENERALIZED EDEMA TO THE AREA. HER VITALS THIS MORNING ARE 97.9-137-25-94%[place], 155/92. LABS WERE OBTAINED. ABNORMAL LAB VALUES INCLUDE THE FOLLOWING: RBC 2.63, HGB 9.9, HCT 28.3 , CARBON DIOXIDE 34.5, BUN 36, CREATININE 1.56, GLUCOSE 106, AST 11, ALBUMIN 3.0. A CHEST XRAY WAS OBTAINED TODAY AND REVEALED BILATERAL INFILTRATES, GREATEST AT THE LEFT LOWER LOBE. SHE WAS STARTED ON LEVAQUIN 250MG IV DAILY. TODAY, WE WILL CONTINUE WITH CURRENT PLAN OF CARE FOR PNEUMONIA, CONGESTIVE HEART FAILURE, COPD, AND ATRIAL FIBRILLATION. WE PLAN TO FOLLOW UP WITH AM LABS AND CONTINUE TO MONITOR PATIENT. - Past Medical Family Social History Past Med/Fam/Surg Hx: No changes since H&P Allergies: Allergies zolpidem [From Ambien] Allergy (Verified 08/03/17 09:12) - Review of Systems ROS: No change since H&P - Vital Signs and I&O's Vital Signs: Temperature 97.7 F Pulse Rate [Left Brachial] 93 Pulse Rate [Apical] 85 Pulse Rate 89 Respiratory Rate 19 Blood Pressure [Right Arm] 136/63 Blood Pressure [Left Arm] 178/83 Blood Pressure 169/87 O2 Sat by Pulse Oximetry 96 Intake and Output: Intake & Output 08/08/17 08/09/17 08/10/17 08/11/17 11:59 11:59 11:59 11:59 Intake Total 5597 581 1051 620 Output Total 3350 1400 1850 Balance -2182 -456 089 325 - Physical Exam Oriented: Not Oriented Eyes: Normal Ear: Normal Nose: Normal Throat: Normal Respiratory: Right, Left, Generalized, Wheezes, Rhonchi Cardiovascular: Tachycardia : Normal Auscultation: Bowel Sounds: Normal Palpation: Normal Tenderness: Normal Skin: Red, Tender, Wound (RIGHT ELBOW ABRASION, REDNESS, DECREASED ROM) Musculoskeletal: Right, Shoulder, Elbow, Tender Psychiatric: Other (DROWSY) Mood Description: Calm Affect: Normal Speech Pattern: Clear, Appropriate - Laboratory and Diagnostics Result Diagrams: 08/10/17 05:20 08/10/17 05:20 Labs: 08/06/17 12:25 Sputum - Expectorated Sputum Sputum Culture - Preliminary Escherichia Coli 08/06/17 12:25 Sputum - Expectorated Sputum - Final 08/04/17 21:06 Elbow - Right Gram Stain - Final 08/04/17 21:06 Elbow - Right Wound Culture - Final Staphylococcus Aureus Laboratory WBC 6.3 X10^3/uL (3.6-10.0) 08/10/17 05:20 RBC 2.68 X10^6/uL (3.5-5.4) L 08/10/17 05:20 Hgb 9.9 g/dL (12.0-16.0) L 08/10/17 05:20 Hct 28.4 % (36.0-47.0) L 08/10/17 05:20 MCV 106.1 fL (80.0-100.0) H 08/10/17 05:20 MCH 36.9 pg (27.0-34.0) H 08/10/17 05:20 MCHC 34.8 g/dL (33.0-35.0) 08/10/17 05:20 RDW 14.5 % (11.6-16.5) 08/10/17 05:20 Plt Count 390 X10^3/uL (150.0-450.0) 08/10/17 05:20 Plt Count Comment Adequate (ADEQUATE) 08/10/17 05:20 MPV 8.3 fL (7.4-11.0) 08/10/17 05:20 Neut % (Auto) 96.6 % (42.0-75.0) H 08/10/17 05:20 Lymph % (Auto) 2.2 % (21.0-51.0) L 08/10/17 05:20 [place] % (Auto) 0.9 % (0.0-13.0) 08/10/17 05:20 Eos % (Auto) 0.2 % (0.9-2.9) L 08/10/17 05:20 Baso % (Auto) 0.1 % (0.2-1.0) L 08/10/17 05:20 Neut # (Auto) 6.1 x10^3/uL (2.2-4.8) H 08/10/17 05:20 Lymph # (Auto) 0.1 X10^3/uL (1.3-2.9) L 08/10/17 05:20 [place] # (Auto) 0.1 x10^3/uL (0.3-0.8) L 08/10/17 05:20 Eos # (Auto) 0.0 x10^3/uL (0.0-0.2) 08/10/17 05:20 Baso # (Auto) 0.0 X10^3/uL (0.0-0.1) 08/10/17 05:20 Absolute Nucleated RBC 0.3 /100WBC 08/10/17 05:20 Total Counted 100 08/10/17 05:20 Neutrophils % (Manual) 82 % (39-76) H 08/10/17 05:20 Band Neutrophils % 14 % (0-10) H 08/10/17 05:20 Lymphocytes % (Manual) 3 % (13-43) L 08/10/17 05:20 Monocytes % (Manual) 1 % (4-9) L 08/10/17 05:20 Eosinophils % (Manual) 1 % (0-6) 08/09/17 05:20 Toxic Granulation 1+ A 08/08/17 05:15 Plt Morphology Comment Normal (NORMAL) 08/10/17 05:20 RBC Morphology Abnormal (NORMAL) A 08/10/17 05:20 Macrocytosis 1+ A 08/10/17 05:20 Sample Site Right radial 08/05/17 10:09 ABG pH 7.420 (7.35-7.45) 08/05/17 10:09 ABG pCO2 37.0 mmHg (35.0-45.0) 08/05/17 10:09 ABG pO2 68.0 mmHg (80.0-100.0) L 08/05/17 10:09 ABG HCO3 24.0 mmol/L (22-26) 08/05/17 10:09 ABG O2 Saturation 94.0 % (90-100) 08/05/17 10:09 ABG Base Excess -0.2 mmol/L (-2.0-2.0) 08/05/17 10:09 Ruperto Test Pos 08/05/17 10:09 A-a Gradient 85.0 mmHg 08/05/17 10:09 FiO2 28.000 08/05/17 10:09 Blood Gas Comments Diya well aw 08/05/17 10:09 Sodium 144 mmol/L (136-145) 08/10/17 05:20 Corrected Sodium 145 mmol/L (136-145) 08/10/17 05:20 Potassium 3.3 mmol/L (3.5-5.1) L 08/10/17 05:20 Chloride 96 mmol/L (98-107) L 08/10/17 05:20 Carbon Dioxide 39.4 mmol/L (21-32) H 08/10/17 05:20 BUN 55 mg/dL (7-18) H 08/10/17 05:20 Creatinine 2.28 mg/dL (0.55-1.02) H 08/10/17 05:20 Est GFR (MDRD) Af Amer 27 (>60) L 08/10/17 05:20 Est GFR (MDRD) Non-Af 22 (>60) L 08/10/17 05:20 Glucose 123 mg/dL (65-99) H 08/10/17 05:20 Calcium 9.5 mg/dL (8.5-10.1) 08/10/17 05:20 Corrected Calcium 10.5 mg/dL (8.5-10.1) H 08/10/17 05:20 Magnesium 2.6 mg/dL (1.7-2.9) 08/10/17 05:20 Total Bilirubin 1.00 mg/dL (0.2-1.0) 08/10/17 05:20 AST 16 Units/L (15-37) 08/10/17 05:20 ALT 16 Units/L (12-78) 08/10/17 05:20 Alkaline Phosphatase 102 Units/L (46-116) 08/10/17 05:20 Creatine Kinase 106 Units/L (26-192) 08/05/17 01:05 CK-MB (CK-2) 2.7 ng/mL (0-4.0) 08/05/17 01:05 CK/CKMB % Calc 2.6 % (<4) 08/05/17 01:05 Troponin I 0.03 ng/mL (0-1.5) 08/05/17 01:05 B-Natriuretic Peptide 939 pg/mL (0-79) H* 08/05/17 14:55 Total Protein 7.0 g/dL (6.4-8.2) 08/10/17 05:20 Albumin 2.8 g/dL (3.4-5.0) L 08/10/17 05:20 Globulin 4.2 g/dL (2.5-4.5) 08/10/17 05:20 Albumin/Globulin Ratio 0.7 Ratio (1.1-2.1) L 08/10/17 05:20 Specimen Type Catherized urine 08/05/17 07:22 Urine Color Yellow (YELLOW) 08/05/17 07:22 Urine Appearance Slightly hazy (CLEAR) 08/05/17 07:22 Urine pH 5.0 (5.0 - 8.0) 08/05/17 07:22 Ur Specific [place] 1.020 (1.000-1.030) 08/05/17 07:22 Urine Protein 2+ (NEGATIVE) 08/05/17 07:22 Urine Glucose (UA) Negative (NEGATIVE) 08/05/17 07:22 Urine Ketones Negative (NEGATIVE) 08/05/17 07:22 Urine Occult Blood 2+ (NEGATIVE) 08/05/17 07:22 Urine Nitrite Negative (NEGATIVE) 08/05/17 07:22 Urine Bilirubin Negative (NEGATIVE) 08/05/17 07:22 Urine Urobilinogen Normal (NORMAL) 08/05/17 07:22 Ur Leukocyte Esterase Negative (NEGATIVE) 08/05/17 07:22 Urine RBC 2-5 /HPF (NONE SEEN) 08/05/17 07:22 Urine WBC 0-3 /HPF (NONE SEEN) 08/05/17 07:22 Ur Squamous Epith Cells Few /HPF (NEGATIVE) 08/05/17 07:22 Amorphous Sediment Trace /HPF (NEGATIVE) 08/05/17 07:22 Urine Bacteria Negative /HPF (NEGATIVE) 08/05/17 07:22 Granular Casts Few /LPF (NEGATIVE) 08/05/17 07:22 Urine Mucus Few /HPF (NEGATIVE) 08/05/17 07:22 Ur Culture Indicated? No/not indicated 08/05/17 07:22 Vancomycin Trough 16.2 ug/mL (15-20) 08/08/17 09:00 - Plan (1) Atrial fibrillation with RVR Status: Inactive Plan: LANOXIN 0.25MG IV X 1 DOSE, CARDIZEM CD 180MG PO DAILY, WEAN OFF OF CARDIZEM DRIP, RETAIL SALES MERCHANDISER DEVELOPMENT, CONTINUE TO MONITOR (2) CHF (congestive heart failure) Status: Acute Qualifiers: Qualified Code(s): I50.41 - Acute combined systolic (congestive) and diastolic (congestive) heart failure Plan: LASIX 40MG IV Q12H, CONTINUE NEB TX, SUPPLEMENTAL OXYGEN, CONTINUE TO MONITOR (3) Pneumonia Status: Inactive Qualifiers: Pneumonia type: due to Pseudomonas Laterality: bilateral Lung location: lower lobe of lung Qualified Code(s): J15.1 - Pneumonia due to Pseudomonas Plan: LEVAQUIN 250MG IV DAILY, CONTINUE BREATHING TREATMENTS, SUPPLEMENTAL OXYGEN, CONTINUE TO MONITOR (4) Cellulitis of right elbow Status: Acute Plan: VANCOMYCIN 1GM IV DAILY, CONTINUE TO MONITOR (5) Generalized weakness Status: Acute Plan: NORMAL SALINE AT 125ML/HR, SERIAL CARDIAC ENZYMES AND EKG, CONTINUE TO MONITOR (6) Shortness of breath Status: Acute Plan: CONTINUE SUPPLEMENTAL OXYGEN, CHECK ABG, CHEST XRAY, CONTINUE TO MONITOR (7) Elbow pain Status: Acute Qualifiers: Laterality: right Qualified Code(s): M25.521 - Pain in right elbow Plan: OBTAIN WOUND CULTURE, CONTINUE TO MONITOR (8) Mental status alteration Status: Acute Qualifiers: Altered mental status type: transient alteration of awareness Qualified Code(s): R40.4 - Transient alteration of awareness Plan: CONTINUE TO MONITOR (9) Anemia Status: Chronic Qualifiers: Anemia type: iron deficiency Iron deficiency anemia type: inadequate dietary iron intake Qualified Code(s): D50.8 - Other iron deficiency anemias Plan: CONTINUE HEMOCYTE PLUS, CONTINUE TO MONITOR (10) Depression Status: Chronic Qualifiers: Depression Type: major depressive disorder Major depression recurrence: recurrent Active/Remission status: remission status unspecified Qualified Code(s): F33.9 - Major depressive disorder, recurrent, unspecified Plan: CONTINUE EFFEXOR, CONTINUE TO MONITOR (11) GERD (gastroesophageal reflux disease) Status: Chronic Qualifiers: Esophagitis presence: esophagitis presence not specified Qualified Code(s) : K21.9 - Gastro-esophageal reflux disease without esophagitis Plan: CONTINUE PROTONIX, CONTINUE TO MONITOR
[2017-08-10] MEDS: ROCEPHIN 1 GM IV PREMIX 1 GM/50 ML IV.SOLN. IV SCH (21:47)
[2017-08-11] MEDS: NS 1000 ML 1,000 ML IV SCH ×4 (06:27→22:00)
[2017-08-11 06:41] LABS: BASOPHILS % (AUTO) 0 % (0.2-1.0); EOSINOPHILS % (AUTO) 0.2 % (0.9-2.9); HEMATOCRIT 25.6 % (36.0-47.0); HEMOGLOBIN 8.9 g/dL (12.0-16.0); LYMPHOCYTES # (AUTO) 0.2 X10^3/uL (1.3-2.9); MEAN CORPUSCULAR HEMOGLOBIN 37.1 pg (27.0-34.0); MEAN CORPUSCULAR HGB CONC 34.9 g/dL (33.0-35.0); MEAN CORPUSCULAR VOLUME 106.3 fL (80.0-100.0); MEAN PLATELET VOLUME 8.3 fL (7.4-11.0); MONOCYTES # (AUTO) 0.1 x10^3/uL (0.3-0.8); MONOCYTES % (AUTO) 1.4 % (0.0-13.0); NEUTROPHILS # (AUTO) 8.4 x10^3/uL (2.2-4.8); NEUTROPHILS % (AUTO) 96.4 % (42.0-75.0); PLATELET COUNT 355 X10^3/uL (150.0-450.0); RED BLOOD COUNT 2.41 X10^6/uL (3.5-5.4); RED CELL DISTRIBUTION WIDTH 14.9 % (11.6-16.5); WHITE BLOOD COUNT 8.7 X10^3/uL (3.6-10.0)
[2017-08-11 07:00] LABS: ALANINE AMINOTRANSFERASE 15 Units/L (12-78); ALBUMIN 2.8 g/dL (3.4-5.0); ALKALINE PHOSPHATASE 96 Units/L (46-116); ASPARTATE AMINO TRANSFERASE 16 Units/L (15-37); BLOOD UREA NITROGEN 72 mg/dL (7-18); CALCIUM 9.4 mg/dL (8.5-10.1); CARBON DIOXIDE 37.2 mmol/L (21-32); CHLORIDE 99 mmol/L (98-107); COR CA(FOR HYPOALB) 10.4 mg/dL (8.5-10.1); CREATININE 2.43 mg/dL (0.55-1.02); SODIUM 146 mmol/L (136-145); eGFR BLACK RACES 25 (>60); eGFR NON BLACK RACES 20 (>60)
[2017-08-11 07:17] LABS: BAND NEUTROPHILS % 6 % (0-10); PLATELET MORPHOLOGY COMMENT NORMAL (NORMAL)
--- NOTE | 2017-08-11 07:50 | RAD ---
Exam: Chest, frontal view dated 08/11/2017 at 7:07 a.m. Comparison: 81-year-old female with shortness of breath Comparison: Previous chest radiograph from 08/10/2017 Findings: Cardiomediastinal structures are stable. Bibasilar airspace disease is again seen with slight interva l improvement noted on the right. Small effusions are likely present as well. Impression: Bibasilar airspace disease with slight interval improvement noted on right. Small effusions are likely present as well Reported By:
[2017-08-11] MEDS: MOBIC TAB 15 MG PO SCH (09:00)
[2017-08-11] MEDS: ALBUMIN HUMAN 25%- 100ML 100 ML IV SCH (09:00)
[2017-08-11] MEDS: PREDNISONE TAB 20 MG PO SCH ×2 (09:00→21:16)
[2017-08-11] MEDS: PROTONIX TAB 40 MG PO SCH (09:00)
[2017-08-11] MEDS: HEMOCYTE-PLUS PO SCH (09:01)
[2017-08-11] MEDS: CARDIZEM CD 180 MG PO SCH (09:01)
[2017-08-11] MEDS: SYNTHROID 75 mcg TAB PO SCH (09:01)
[2017-08-11] MEDS: EFFEXOR XR 150 MG CAP PO SCH (09:01)
[2017-08-11] MEDS: VITAMIN D3 PO SCH (09:02)
[2017-08-11] MEDS: IMURAN PO SCH (09:03)
[2017-08-11] MEDS: ROCEPHIN 1 GM IV PREMIX 1 GM/50 ML IV.SOLN. IV SCH (09:03)
[2017-08-11] MEDS: XOPENEX 1.25 MG/3 ML NEBULE NEB SCH ×4 (09:04→20:25)
[2017-08-11] MEDS: XARELTO PO SCH (09:04)
[2017-08-11] MEDS: MORPHINE SULFATE INJ 2 MG INJ IVP PRN ×3 (10:12→22:29)
[2017-08-11] MEDS: POTASSIUM CHL 60 MEQ/NS 0.45% 500 ML IV PRN ×2 (10:15→11:29)
[2017-08-11] MEDS: PROCALAMINE 3 % 1,000 ML IV SCH (10:40)
--- NOTE | 2017-08-11 12:25 | PCM.PROG ---
Progress Note - Progress Note for Day of Date: 08/09/17 - Subjective Subjective: IS BEING TREATED FOR GENERALIZED WEAKNESS, ATRIAL FIBRILLATION, COPD EXACERBATION, CHF, AND RIGHT ELBOW INFECTION. SHE REMAINS IN THE INTENSIVE CARE UNIT FOR CLOSE MONITORING. TODAY, SHE IS LYING IN BED WITH EYES CLOSED ON MORNING ROUNDS. SHE AWAKENS AND RESPONDS TO SIMPLE QUESTIONS. FAMILY REPORTS THAT PATIENT HAS CONTINUED WITH AGITATION THROUGHOUT THE NIGHT. ON EXAMINATION, SHE CONTINUES TO BE IN ATRIAL FIBRILLATION, WITH HR IN THE 120S AT THIS TIME. BILATERAL LUNGS CONTINUE WITH SCATTERED WHEEZING AND RHONCHI THROUGHOUT. SHE IS CURRENTLY UTILIZING HIGH FLOW HEATED OXYGEN AT 65%. ABDOMEN IS ROUND, SOFT, AND NON-TENDER WITH NORMAL BOWEL SOUNDS NOTED IN ALL QUADRANTS. RIGHT ELBOW CONTINUES WITH REDNESS AND GENERALIZED EDEMA TO THE AREA, BUT IMPROVED SINCE YESTERDAY. HER VITALS THIS MORNING ARE 98.7-122-17-94%-155/76. LABS WERE OBTAINED. ABNORMAL LAB VALUES INCLUDE THE FOLLOWING: RBC 2.68, HGB 9.9 , HCT 28.4, POTASSIUM 3.1, CHLORIDE 97, CARBON DIOXIDE 39, BUN 42, CREATININE 1.93, GLUCOSE 103, MAGNESIUM 1.3, ALBUMIN 2.8. A CHEST XRAY WAS OBTAINED TODAY AND REVEALED INCREASING OPACIFICATION LEFT LOWER CHEST CONSISTENT WITH PROGRESSION OF AIRSPACE DISEASE AND PROBABLE LEFT PLEURAL EFFUSION. TODAY, WE WILL CONTINUE WITH CURRENT PLAN OF CARE FOR PNEUMONIA, CONGESTIVE HEART FAILURE , COPD, AND ATRIAL FIBRILLATION. WE PLAN TO FOLLOW UP WITH AM LABS AND CONTINUE TO MONITOR PATIENT. - Past Medical Family Social History Past Med/Fam/Surg Hx: No changes since H&P Allergies: Allergies zolpidem [From Ambien] Allergy (Verified 08/03/17 09:12) - Review of Systems ROS: No change since H&P - Vital Signs and I&O's Vital Signs: Temperature 97.2 F Pulse Rate [Left Brachial] 85 Pulse Rate [Apical] 85 Pulse Rate 97 Respiratory Rate 18 Blood Pressure [Right Arm] 135/63 Blood Pressure [Left Arm] 178/83 Blood Pressure 169/87 O2 Sat by Pulse Oximetry 97 Intake and Output: Intake & Output 08/09/17 08/10/17 08/11/17 08/12/17 11:59 11:59 11:59 11:59 Intake Total 944 2343 1303 Output Total 1400 1850 600 Balance -456 493 703 - Physical Exam Oriented: Person Eyes: Normal Ear: Normal Nose: Normal Throat: Normal Respiratory: Right, Left, Generalized, Wheezes, Rhonchi Cardiovascular: Tachycardia : Normal Auscultation: Bowel Sounds: Normal Palpation: Normal Tenderness: Normal Skin: Red, Tender, Wound (RIGHT ELBOW ABRASION, REDNESS, DECREASED ROM) Musculoskeletal: Right, Shoulder, Elbow, Tender Psychiatric: Other (DROWSY) Mood Description: Calm Affect: Normal Speech Pattern: Clear, Appropriate - Laboratory and Diagnostics Result Diagrams: 08/11/17 06:00 08/11/17 06:00 Labs: 08/06/17 12:25 Sputum - Expectorated Sputum Sputum Culture - Final Pseudomonas Aeruginosa Escherichia Coli 08/06/17 12:25 Sputum - Expectorated Sputum - Final 08/04/17 21:06 Elbow - Right Gram Stain - Final 08/04/17 21:06 Elbow - Right Wound Culture - Final Staphylococcus Aureus Laboratory WBC 8.7 X10^3/uL (3.6-10.0) 08/11/17 06:00 RBC 2.41 X10^6/uL (3.5-5.4) L 08/11/17 06:00 Hgb 8.9 g/dL (12.0-16.0) L 08/11/17 06:00 Hct 25.6 % (36.0-47.0) L 08/11/17 06:00 MCV 106.3 fL (80.0-100.0) H 08/11/17 06:00 MCH 37.1 pg (27.0-34.0) H 08/11/17 06:00 MCHC 34.9 g/dL (33.0-35.0) 08/11/17 06:00 RDW 14.9 % (11.6-16.5) 08/11/17 06:00 Plt Count 355 X10^3/uL (150.0-450.0) 08/11/17 06:00 Plt Count Comment Adequate (ADEQUATE) 08/11/17 06:00 MPV 8.3 fL (7.4-11.0) 08/11/17 06:00 Neut % (Auto) 96.4 % (42.0-75.0) H 08/11/17 06:00 Lymph % (Auto) 2.0 % (21.0-51.0) L 08/11/17 06:00 [place] % (Auto) 1.4 % (0.0-13.0) 08/11/17 06:00 Eos % (Auto) 0.2 % (0.9-2.9) L 08/11/17 06:00 Baso % (Auto) 0 % (0.2-1.0) L 08/11/17 06:00 Neut # (Auto) 8.4 x10^3/uL (2.2-4.8) H 08/11/17 06:00 Lymph # (Auto) 0.2 X10^3/uL (1.3-2.9) L 08/11/17 06:00 [place] # (Auto) 0.1 x10^3/uL (0.3-0.8) L 08/11/17 06:00 Eos # (Auto) 0.0 x10^3/uL (0.0-0.2) 08/11/17 06:00 Baso # (Auto) 0.0 X10^3/uL (0.0-0.1) 08/11/17 06:00 Absolute Nucleated RBC 0.3 /100WBC 08/11/17 06:00 Total Counted 100 08/11/17 06:00 Neutrophils % (Manual) 84 % (39-76) H 08/11/17 06:00 Band Neutrophils % 6 % (0-10) 08/11/17 06:00 Lymphocytes % (Manual) 6 % (13-43) L 08/11/17 06:00 Monocytes % (Manual) 2 % (4-9) L 08/11/17 06:00 Eosinophils % (Manual) 1 % (0-6) 08/09/17 05:20 Toxic Granulation 1+ A 08/08/17 05:15 Plt Morphology Comment Normal (NORMAL) 08/11/17 06:00 RBC Morphology Abnormal (NORMAL) A 08/11/17 06:00 Macrocytosis 1+ A 08/11/17 06:00 Sample Site Right radial 08/05/17 10:09 ABG pH 7.420 (7.35-7.45) 08/05/17 10:09 ABG pCO2 37.0 mmHg (35.0-45.0) 08/05/17 10:09 ABG pO2 68.0 mmHg (80.0-100.0) L 08/05/17 10:09 ABG HCO3 24.0 mmol/L (22-26) 08/05/17 10:09 ABG O2 Saturation 94.0 % (90-100) 08/05/17 10:09 ABG Base Excess -0.2 mmol/L (-2.0-2.0) 08/05/17 10:09 Ruperto Test Pos 08/05/17 10:09 A-a Gradient 85.0 mmHg 08/05/17 10:09 FiO2 28.000 08/05/17 10:09 Blood Gas Comments Diya well aw 08/05/17 10:09 Sodium 146 mmol/L (136-145) H 08/11/17 06:00 Corrected Sodium TNP 08/11/17 06:00 Potassium 3.3 mmol/L (3.5-5.1) L 08/11/17 06:00 Chloride 99 mmol/L (98-107) 08/11/17 06:00 Carbon Dioxide 37.2 mmol/L (21-32) H 08/11/17 06:00 BUN 72 mg/dL (7-18) H 08/11/17 06:00 Creatinine 2.43 mg/dL (0.55-1.02) H 08/11/17 06:00 Est GFR (MDRD) Af Amer 25 (>60) L 08/11/17 06:00 Est GFR (MDRD) Non-Af 20 (>60) L 08/11/17 06:00 Glucose 90 mg/dL (65-99) 08/11/17 06:00 Calcium 9.4 mg/dL (8.5-10.1) 08/11/17 06:00 Corrected Calcium 10.4 mg/dL (8.5-10.1) H 08/11/17 06:00 Magnesium 2.6 mg/dL (1.7-2.9) 08/10/17 05:20 Total Bilirubin 0.50 mg/dL (0.2-1.0) 08/11/17 06:00 AST 16 Units/L (15-37) 08/11/17 06:00 ALT 15 Units/L (12-78) 08/11/17 06:00 Alkaline Phosphatase 96 Units/L (46-116) 08/11/17 06:00 Creatine Kinase 106 Units/L (26-192) 08/05/17 01:05 CK-MB (CK-2) 2.7 ng/mL (0-4.0) 08/05/17 01:05 CK/CKMB % Calc 2.6 % (<4) 08/05/17 01:05 Troponin I 0.03 ng/mL (0-1.5) 08/05/17 01:05 B-Natriuretic Peptide 939 pg/mL (0-79) H* 08/05/17 14:55 Total Protein 7.0 g/dL (6.4-8.2) 08/11/17 06:00 Albumin 2.8 g/dL (3.4-5.0) L 08/11/17 06:00 Globulin 4.2 g/dL (2.5-4.5) 08/11/17 06:00 Albumin/Globulin Ratio 0.7 Ratio (1.1-2.1) L 08/11/17 06:00 Specimen Type Catherized urine 08/05/17 07:22 Urine Color Yellow (YELLOW) 08/05/17 07:22 Urine Appearance Slightly hazy (CLEAR) 08/05/17 07:22 Urine pH 5.0 (5.0 - 8.0) 08/05/17 07:22 Ur Specific [place] 1.020 (1.000-1.030) 08/05/17 07:22 Urine Protein 2+ (NEGATIVE) 08/05/17 07:22 Urine Glucose (UA) Negative (NEGATIVE) 08/05/17 07:22 Urine Ketones Negative (NEGATIVE) 08/05/17 07:22 Urine Occult Blood 2+ (NEGATIVE) 08/05/17 07:22 Urine Nitrite Negative (NEGATIVE) 08/05/17 07:22 Urine Bilirubin Negative (NEGATIVE) 08/05/17 07:22 Urine Urobilinogen Normal (NORMAL) 08/05/17 07:22 Ur Leukocyte Esterase Negative (NEGATIVE) 08/05/17 07:22 Urine RBC 2-5 /HPF (NONE SEEN) 08/05/17 07:22 Urine WBC 0-3 /HPF (NONE SEEN) 08/05/17 07:22 Ur Squamous Epith Cells Few /HPF (NEGATIVE) 08/05/17 07:22 Amorphous Sediment Trace /HPF (NEGATIVE) 08/05/17 07:22 Urine Bacteria Negative /HPF (NEGATIVE) 08/05/17 07:22 Granular Casts Few /LPF (NEGATIVE) 08/05/17 07:22 Urine Mucus Few /HPF (NEGATIVE) 08/05/17 07:22 Ur Culture Indicated? No/not indicated 08/05/17 07:22 Vancomycin Trough 16.2 ug/mL (15-20) 08/08/17 09:00 Random Vancomycin 26.2 ug/mL 08/11/17 08:35 - Plan (1) Atrial fibrillation with RVR Status: Inactive Plan: CARDIZEM CD 180MG PO DAILY, WEAN OFF OF CARDIZEM DRIP, STAFFING EXECUTIVE, CONTINUE TO MONITOR (2) CHF (congestive heart failure) Status: Acute Qualifiers: Qualified Code(s): I50.41 - Acute combined systolic (congestive) and diastolic (congestive) heart failure Plan: LASIX 40MG IV Q12H, CONTINUE NEB TX, SUPPLEMENTAL OXYGEN, CONTINUE TO MONITOR (3) Pneumonia Status: Inactive Qualifiers: Pneumonia type: due to Pseudomonas Laterality: bilateral Lung location: lower lobe of lung Qualified Code(s): J15.1 - Pneumonia due to Pseudomonas Plan: LEVAQUIN 250MG IV DAILY, CONTINUE BREATHING TREATMENTS, SUPPLEMENTAL OXYGEN, CONTINUE TO MONITOR (4) Cellulitis of right elbow Status: Acute Plan: VANCOMYCIN 1GM IV DAILY, CONTINUE TO MONITOR (5) Generalized weakness Status: Acute Plan: NORMAL SALINE AT 125ML/HR, SERIAL CARDIAC ENZYMES AND EKG, CONTINUE TO MONITOR (6) Shortness of breath Status: Acute Plan: CONTINUE SUPPLEMENTAL OXYGEN, CHECK ABG, CHEST XRAY, CONTINUE TO MONITOR (7) Elbow pain Status: Acute Qualifiers: Laterality: right Qualified Code(s): M25.521 - Pain in right elbow Plan: VANCOMYCIN 1MG IV DAILY, CONTINUE TO MONITOR (8) Mental status alteration Status: Acute Qualifiers: Altered mental status type: transient alteration of awareness Qualified Code(s): R40.4 - Transient alteration of awareness Plan: CONTINUE TO MONITOR (9) Anemia Status: Chronic Qualifiers: Anemia type: iron deficiency Iron deficiency anemia type: inadequate dietary iron intake Qualified Code(s): D50.8 - Other iron deficiency anemias Plan: CONTINUE HEMOCYTE PLUS, CONTINUE TO MONITOR (10) Depression Status: Chronic Qualifiers: Depression Type: major depressive disorder Major depression recurrence: recurrent Active/Remission status: remission status unspecified Qualified Code(s): F33.9 - Major depressive disorder, recurrent, unspecified Plan: CONTINUE EFFEXOR, CONTINUE TO MONITOR (11) GERD (gastroesophageal reflux disease) Status: Chronic Qualifiers: Esophagitis presence: esophagitis presence not specified Qualified Code(s) : K21.9 - Gastro-esophageal reflux disease without esophagitis Plan: CONTINUE PROTONIX, CONTINUE TO MONITOR
[2017-08-11] MEDS: COLACE CAP 100 MG PO SCH (21:15)
[2017-08-11] MEDS: ZyrTEC TAB 10 MG PO SCH (21:16)
[2017-08-11] MEDS: MILK OF MAGNESIA PO SCH (21:17)
--- NOTE | 2017-08-11 21:20 | PCM.PROG ---
Progress Note - Progress Note for Day of Date: 08/10/17 - Subjective Subjective: IS BEING TREATED FOR GENERALIZED WEAKNESS, ATRIAL FIBRILLATION, COPD EXACERBATION, CHF, AND RIGHT ELBOW INFECTION. SHE REMAINS IN THE INTENSIVE CARE UNIT FOR CLOSE MONITORING. TODAY, SHE IS LYING IN BED WITH EYES CLOSED ON MORNING ROUNDS. SHE AWAKENS TO VERBAL STIMULI AND RESPONDS APPROPRIATELY TO SIMPLE QUESTIONS. FAMILY REPORTS THAT PATIENT CONTINUES WITH SEVERE WEAKNESS AND DECREASED APPETITE. ON EXAMINATION, SHE CONTINUES TO BE IN ATRIAL FIBRILLATION, WITH HR NOTED TO BE 111 AT THIS TIME ON THE HOTEL ROOM ATTENDANT. BILATERAL LUNGS CONTINUE WITH SCATTERED WHEEZING AND RHONCHI THROUGHOUT. SHE IS CURRENTLY UTILIZING HIGH FLOW HEATED OXYGEN AT 65%. RESPIRATORY THERPIST ATTEMPTED TO WEAN PATIENT TO 40% OXYGEN, HOWEVER, PATIENT DID NOT TOLERATE AND SATURATIONS FELL INTO THE 80S. ABDOMEN IS ROUND, SOFT, AND NON-TENDER WITH NORMAL BOWEL SOUNDS NOTED IN ALL QUADRANTS. RIGHT ELBOW CONTINUES WITH REDNESS AND GENERALIZED EDEMA TO THE AREA, BUT IMPROVED SINCE YESTERDAY. HER VITALS THIS MORNING ARE 99.5-111-28-95%-144/56. LABS WERE OBTAINED. ABNORMAL LAB VALUES INCLUDE THE FOLLOWING: RBC 2.68, HGB 9.9, HCT 28.4 , POTASSIUM 3.3, CHLORIDE 96, CARBON DIOXIDE 39.4, BUN 55, CREATININE 2.28, ALBUMIN 2.8. A CHEST XRAY WAS OBTAINED TODAY AND REVEALED A CHANGING PATTERN BIBASILAR INFILTRATES SEEN WITH IMPROVEMENT IN THE LEFT LOWER LOBE AND WORSENING IN THE RIGHT LOWER LOBE. LEFT SIDED PLEURAL EFFUSION SUSPECTED. TODAY , WE WILL CONTINUE WITH CURRENT PLAN OF CARE FOR PNEUMONIA, CONGESTIVE HEART FAILURE, COPD, AND ATRIAL FIBRILLATION. WE PLAN TO FOLLOW UP WITH AM LABS AND CONTINUE TO MONITOR PATIENT. - Past Medical Family Social History Past Med/Fam/Surg Hx: No changes since H&P Allergies: Allergies zolpidem [From Ambien] Allergy (Verified 08/03/17 09:12) - Review of Systems ROS: No change since H&P - Vital Signs and I&O's Vital Signs: Temperature 97.2 F Pulse Rate [Left Brachial] 78 Pulse Rate [Apical] 85 Pulse Rate 101 Respiratory Rate 20 Blood Pressure [Right Arm] 137/65 Blood Pressure [Left Arm] 178/83 Blood Pressure 169/87 O2 Sat by Pulse Oximetry 94 Intake and Output: Intake & Output 08/09/17 08/10/17 08/11/17 08/12/17 11:59 11:59 11:59 11:59 Intake Total 941 8788 1303 881 Output Total 8578 1170 600 300 Balance -456 493 703 581 - Physical Exam Oriented: Person Eyes: Normal Ear: Normal Nose: Normal Throat: Normal Respiratory: Right, Left, Generalized, Wheezes, Rhonchi Cardiovascular: Tachycardia : Normal Auscultation: Bowel Sounds: Normal Palpation: Normal Tenderness: Normal Skin: Red, Tender, Wound (RIGHT ELBOW ABRASION, REDNESS, DECREASED ROM) Musculoskeletal: Right, Shoulder, Elbow, Tender Psychiatric: Normal Mood Description: Calm Affect: Normal Speech Pattern: Clear, Appropriate - Laboratory and Diagnostics Result Diagrams: 08/11/17 06:00 08/11/17 06:00 Labs: 08/06/17 12:25 Sputum - Expectorated Sputum Sputum Culture - Final Pseudomonas Aeruginosa Escherichia Coli 08/06/17 12:25 Sputum - Expectorated Sputum - Final 08/04/17 21:06 Elbow - Right Gram Stain - Final 08/04/17 21:06 Elbow - Right Wound Culture - Final Staphylococcus Aureus Laboratory WBC 8.7 X10^3/uL (3.6-10.0) 08/11/17 06:00 RBC 2.41 X10^6/uL (3.5-5.4) L 08/11/17 06:00 Hgb 8.9 g/dL (12.0-16.0) L 08/11/17 06:00 Hct 25.6 % (36.0-47.0) L 08/11/17 06:00 MCV 106.3 fL (80.0-100.0) H 08/11/17 06:00 MCH 37.1 pg (27.0-34.0) H 08/11/17 06:00 MCHC 34.9 g/dL (33.0-35.0) 08/11/17 06:00 RDW 14.9 % (11.6-16.5) 08/11/17 06:00 Plt Count 355 X10^3/uL (150.0-450.0) 08/11/17 06:00 Plt Count Comment Adequate (ADEQUATE) 08/11/17 06:00 MPV 8.3 fL (7.4-11.0) 08/11/17 06:00 Neut % (Auto) 96.4 % (42.0-75.0) H 08/11/17 06:00 Lymph % (Auto) 2.0 % (21.0-51.0) L 08/11/17 06:00 [place] % (Auto) 1.4 % (0.0-13.0) 08/11/17 06:00 Eos % (Auto) 0.2 % (0.9-2.9) L 08/11/17 06:00 Baso % (Auto) 0 % (0.2-1.0) L 08/11/17 06:00 Neut # (Auto) 8.4 x10^3/uL (2.2-4.8) H 08/11/17 06:00 Lymph # (Auto) 0.2 X10^3/uL (1.3-2.9) L 08/11/17 06:00 [place] # (Auto) 0.1 x10^3/uL (0.3-0.8) L 08/11/17 06:00 Eos # (Auto) 0.0 x10^3/uL (0.0-0.2) 08/11/17 06:00 Baso # (Auto) 0.0 X10^3/uL (0.0-0.1) 08/11/17 06:00 Absolute Nucleated RBC 0.3 /100WBC 08/11/17 06:00 Total Counted 100 08/11/17 06:00 Neutrophils % (Manual) 84 % (39-76) H 08/11/17 06:00 Band Neutrophils % 6 % (0-10) 08/11/17 06:00 Lymphocytes % (Manual) 6 % (13-43) L 08/11/17 06:00 Monocytes % (Manual) 2 % (4-9) L 08/11/17 06:00 Eosinophils % (Manual) 1 % (0-6) 08/09/17 05:20 Toxic Granulation 1+ A 08/08/17 05:15 Plt Morphology Comment Normal (NORMAL) 08/11/17 06:00 RBC Morphology Abnormal (NORMAL) A 08/11/17 06:00 Macrocytosis 1+ A 08/11/17 06:00 Sample Site Right radial 08/05/17 10:09 ABG pH 7.420 (7.35-7.45) 08/05/17 10:09 ABG pCO2 37.0 mmHg (35.0-45.0) 08/05/17 10:09 ABG pO2 68.0 mmHg (80.0-100.0) L 08/05/17 10:09 ABG HCO3 24.0 mmol/L (22-26) 08/05/17 10:09 ABG O2 Saturation 94.0 % (90-100) 08/05/17 10:09 ABG Base Excess -0.2 mmol/L (-2.0-2.0) 08/05/17 10:09 Ruperto Test Pos 08/05/17 10:09 A-a Gradient 85.0 mmHg 08/05/17 10:09 FiO2 28.000 08/05/17 10:09 Blood Gas Comments Diya well aw 08/05/17 10:09 Sodium 146 mmol/L (136-145) H 08/11/17 06:00 Corrected Sodium TNP 08/11/17 06:00 Potassium 3.3 mmol/L (3.5-5.1) L 08/11/17 06:00 Chloride 99 mmol/L (98-107) 08/11/17 06:00 Carbon Dioxide 37.2 mmol/L (21-32) H 08/11/17 06:00 BUN 72 mg/dL (7-18) H 08/11/17 06:00 Creatinine 2.43 mg/dL (0.55-1.02) H 08/11/17 06:00 Est GFR (MDRD) Af Amer 25 (>60) L 08/11/17 06:00 Est GFR (MDRD) Non-Af 20 (>60) L 08/11/17 06:00 Glucose 90 mg/dL (65-99) 08/11/17 06:00 POC Glucose (mg/dL) 109 mg/dL (65-99) H 08/11/17 16:41 Calcium 9.4 mg/dL (8.5-10.1) 08/11/17 06:00 Corrected Calcium 10.4 mg/dL (8.5-10.1) H 08/11/17 06:00 Magnesium 2.6 mg/dL (1.7-2.9) 08/10/17 05:20 Total Bilirubin 0.50 mg/dL (0.2-1.0) 08/11/17 06:00 AST 16 Units/L (15-37) 08/11/17 06:00 ALT 15 Units/L (12-78) 08/11/17 06:00 Alkaline Phosphatase 96 Units/L (46-116) 08/11/17 06:00 Creatine Kinase 106 Units/L (26-192) 08/05/17 01:05 CK-MB (CK-2) 2.7 ng/mL (0-4.0) 08/05/17 01:05 CK/CKMB % Calc 2.6 % (<4) 08/05/17 01:05 Troponin I 0.03 ng/mL (0-1.5) 08/05/17 01:05 B-Natriuretic Peptide 939 pg/mL (0-79) H* 08/05/17 14:55 Total Protein 7.0 g/dL (6.4-8.2) 08/11/17 06:00 Albumin 2.8 g/dL (3.4-5.0) L 08/11/17 06:00 Globulin 4.2 g/dL (2.5-4.5) 08/11/17 06:00 Albumin/Globulin Ratio 0.7 Ratio (1.1-2.1) L 08/11/17 06:00 Specimen Type Catherized urine 08/05/17 07:22 Urine Color Yellow (YELLOW) 08/05/17 07:22 Urine Appearance Slightly hazy (CLEAR) 08/05/17 07:22 Urine pH 5.0 (5.0 - 8.0) 08/05/17 07:22 Ur Specific [place] 1.020 (1.000-1.030) 08/05/17 07:22 Urine Protein 2+ (NEGATIVE) 08/05/17 07:22 Urine Glucose (UA) Negative (NEGATIVE) 08/05/17 07:22 Urine Ketones Negative (NEGATIVE) 08/05/17 07:22 Urine Occult Blood 2+ (NEGATIVE) 08/05/17 07:22 Urine Nitrite Negative (NEGATIVE) 08/05/17 07:22 Urine Bilirubin Negative (NEGATIVE) 08/05/17 07:22 Urine Urobilinogen Normal (NORMAL) 08/05/17 07:22 Ur Leukocyte Esterase Negative (NEGATIVE) 08/05/17 07:22 Urine RBC 2-5 /HPF (NONE SEEN) 08/05/17 07:22 Urine WBC 0-3 /HPF (NONE SEEN) 08/05/17 07:22 Ur Squamous Epith Cells Few /HPF (NEGATIVE) 08/05/17 07:22 Amorphous Sediment Trace /HPF (NEGATIVE) 08/05/17 07:22 Urine Bacteria Negative /HPF (NEGATIVE) 08/05/17 07:22 Granular Casts Few /LPF (NEGATIVE) 08/05/17 07:22 Urine Mucus Few /HPF (NEGATIVE) 08/05/17 07:22 Ur Culture Indicated? 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 Plan: CONTINUE NEB TX, SUPPLEMENTAL OXYGEN, CONTINUE TO MONITOR (3) Pneumonia Status: Inactive Qualifiers: Pneumonia type: due to Pseudomonas Laterality: bilateral Lung location: lower lobe of lung Qualified Code(s): J15.1 - Pneumonia due to Pseudomonas Plan: LEVAQUIN 250MG IV DAILY, CONTINUE BREATHING TREATMENTS, SUPPLEMENTAL OXYGEN, CONTINUE TO MONITOR (4) Cellulitis of right elbow Status: Acute Plan: VANCOMYCIN 1GM IV DAILY, CONTINUE TO MONITOR (5) Generalized weakness Status: Acute Plan: NORMAL SALINE AT 125ML/HR, SERIAL CARDIAC ENZYMES AND EKG, CONTINUE TO MONITOR (6) Shortness of breath Status: Acute Plan: CONTINUE SUPPLEMENTAL OXYGEN, CHECK ABG, CHEST XRAY, CONTINUE TO MONITOR (7) Elbow pain Status: Acute Qualifiers: Laterality: right Qualified Code(s): M25.521 - Pain in right elbow Plan: VANCOMYCIN 1MG IV DAILY, CONTINUE TO MONITOR (8) Mental status alteration Status: Acute Qualifiers: Altered mental status type: transient alteration of awareness Qualified Code(s): R40.4 - Transient alteration of awareness Plan: CONTINUE TO MONITOR (9) Anemia Status: Chronic Qualifiers: Anemia type: iron deficiency Iron deficiency anemia type: inadequate dietary iron intake Qualified Code(s): D50.8 - Other iron deficiency anemias Plan: CONTINUE HEMOCYTE PLUS, CONTINUE TO MONITOR (10) Depression Status: Chronic Qualifiers: Depression Type: major depressive disorder Major depression recurrence: recurrent Active/Remission status: remission status unspecified Qualified Code(s): F33.9 - Major depressive disorder, recurrent, unspecified Plan: CONTINUE EFFEXOR, CONTINUE TO MONITOR (11) GERD (gastroesophageal reflux disease) Status: Chronic Qualifiers: Esophagitis presence: esophagitis presence not specified Qualified Code(s) : K21.9 - Gastro-esophageal reflux disease without esophagitis Plan: CONTINUE PROTONIX, CONTINUE TO MONITOR
[2017-08-12 05:50] LABS: BASOPHILS % (AUTO) 0.1 % (0.2-1.0); EOSINOPHILS % (AUTO) 0.1 % (0.9-2.9); HEMATOCRIT 25.4 % (36.0-47.0); HEMOGLOBIN 8.7 g/dL (12.0-16.0); LYMPHOCYTES # (AUTO) 0.1 X10^3/uL (1.3-2.9); LYMPHOCYTES % (AUTO) 1.3 % (21.0-51.0); MEAN CORPUSCULAR HEMOGLOBIN 36.5 pg (27.0-34.0); MEAN CORPUSCULAR HGB CONC 34.5 g/dL (33.0-35.0); MEAN CORPUSCULAR VOLUME 106.1 fL (80.0-100.0); MEAN PLATELET VOLUME 8.3 fL (7.4-11.0); MONOCYTES # (AUTO) 0.1 x10^3/uL (0.3-0.8); MONOCYTES % (AUTO) 1.6 % (0.0-13.0); NEUTROPHILS # (AUTO) 7.3 x10^3/uL (2.2-4.8); NEUTROPHILS % (AUTO) 96.9 % (42.0-75.0); PLATELET COUNT 378 X10^3/uL (150.0-450.0); RED BLOOD COUNT 2.39 X10^6/uL (3.5-5.4); RED CELL DISTRIBUTION WIDTH 14.8 % (11.6-16.5); WHITE BLOOD COUNT 7.6 X10^3/uL (3.6-10.0)
[2017-08-12 05:56] LABS: ALBUMIN 2.8 g/dL (3.4-5.0); CALCIUM 9.5 mg/dL (8.5-10.1); CARBON DIOXIDE 32.2 mmol/L (21-32); COR CA(FOR HYPOALB) 10.5 mg/dL (8.5-10.1); CREATININE 2.2 mg/dL (0.55-1.02); TOTAL PROTEIN 6.7 g/dL (6.4-8.2)
[2017-08-12] MEDS: SYNTHROID 75 mcg TAB PO SCH (06:31)
[2017-08-12] MEDS: NS 1000 ML 1,000 ML IV SCH ×3 (06:32→22:00)
[2017-08-12 06:50] LABS: BAND NEUTROPHILS % 7 % (0-10); PLATELET MORPHOLOGY COMMENT NORMAL (NORMAL)
[2017-08-12] MEDS: MORPHINE SULFATE INJ 2 MG INJ IVP PRN ×3 (07:28→20:30)
--- NOTE | 2017-08-12 08:34 | RAD ---
HISTORY: Shortness of breath Study: Single-view of the chest Comparison: August 11, 2017 Findings: The patient is rotated. The cardiac silhouette is unremarkable. Patchy bibasilar infiltrate is agai n noted and has progressed/worsened since prior exam. Small bilateral pleural effusions are again lucho pected. The aortic knob is partially calcified. IMPRESSION: 1. Patchy bibasilar infiltrate which has progressed/worsened since prior exam. Small bilateral pleur al effusions are again suspected as well. Reported By:
[2017-08-12 09:05] LABS: CREATININE 2.12 mg/dL (0.55-1.02)
[2017-08-12 09:17] LABS: VANCOMYCIN,TROUGH 19.9 ug/mL (15-20)
[2017-08-12] MEDS: XOPENEX 1.25 MG/3 ML NEBULE NEB SCH ×4 (09:41→21:01)
[2017-08-12] MEDS: ROCEPHIN 1 GM IV PREMIX 1 GM/50 ML IV.SOLN. IV SCH (09:49)
[2017-08-12] MEDS: VANCOMYCIN HCL 500 MG VIAL 750 MG in D5W 250 ML IV 250 ML IV SCH (10:43)
[2017-08-12] MEDS: HEMOCYTE-PLUS PO SCH (11:14)
[2017-08-12] MEDS: EFFEXOR TAB 75 MG (BID DOSING) PO SCH ×2 (11:14→21:00)
[2017-08-12] MEDS: IMURAN PO SCH ×2 (11:15→11:28)
[2017-08-12] MEDS: PROCALAMINE 3 % 1,000 ML IV SCH (11:16)
[2017-08-12] MEDS: MOBIC TAB 15 MG PO SCH (11:19)
[2017-08-12] MEDS: PREDNISONE TAB 20 MG PO SCH ×2 (11:19→21:00)
[2017-08-12] MEDS: PROTONIX TAB 40 MG PO SCH (11:19)
[2017-08-12] MEDS: XARELTO PO SCH (11:20)
[2017-08-12] MEDS: VITAMIN D3 PO SCH (11:20)
[2017-08-12] MEDS: ALBUMIN HUMAN 25%- 100ML 100 ML IV SCH (12:46)
[2017-08-12] MEDS ORDERED: CARDIZEM TAB 30 MG PLAIN ONE (18:09)
[2017-08-12] MEDS: CARDIZEM TAB 30 MG PLAIN PO SCH ×2 (18:15→21:00)
[2017-08-12] MEDS: ZyrTEC TAB 10 MG PO SCH (21:00)
[2017-08-12] MEDS: MILK OF MAGNESIA PO SCH (21:00)
[2017-08-12] MEDS: COLACE CAP 100 MG PO SCH (21:00)
[2017-08-12] MEDS: XANAX PO PRN (23:55)
[2017-08-13] MEDS: MORPHINE SULFATE INJ 2 MG INJ IVP PRN ×6 (03:40→17:30)
[2017-08-13] MEDS: NS 1000 ML 1,000 ML IV SCH ×2 (06:26→14:13)
[2017-08-13 06:33] LABS: BASOPHILS % (AUTO) 0.2 % (0.2-1.0); EOSINOPHILS # (AUTO) 0.1 x10^3/uL (0.0-0.2); EOSINOPHILS % (AUTO) 0.9 % (0.9-2.9); HEMATOCRIT 23.3 % (36.0-47.0); HEMOGLOBIN 7.9 g/dL (12.0-16.0); LYMPHOCYTES # (AUTO) 0.2 X10^3/uL (1.3-2.9); LYMPHOCYTES % (AUTO) 2.6 % (21.0-51.0); MEAN CORPUSCULAR HEMOGLOBIN 36.5 pg (27.0-34.0); MEAN CORPUSCULAR HGB CONC 34.2 g/dL (33.0-35.0); MEAN CORPUSCULAR VOLUME 106.8 fL (80.0-100.0); MEAN PLATELET VOLUME 8.1 fL (7.4-11.0); MONOCYTES # (AUTO) 0.1 x10^3/uL (0.3-0.8); MONOCYTES % (AUTO) 1.9 % (0.0-13.0); NEUTROPHILS # (AUTO) 7.5 x10^3/uL (2.2-4.8); NEUTROPHILS % (AUTO) 94.4 % (42.0-75.0); PLATELET COUNT 345 X10^3/uL (150.0-450.0); RED BLOOD COUNT 2.18 X10^6/uL (3.5-5.4); RED CELL DISTRIBUTION WIDTH 14.8 % (11.6-16.5); WHITE BLOOD COUNT 7.9 X10^3/uL (3.6-10.0)
--- NOTE | 2017-08-13 06:54 | RAD ---
HISTORY: Shortness of breath Study: Single-view chest Comparison: 08/12/2017 Findings: Trachea is midline. Heart size is at the upper limits of normal. Increased density is present in the lung bases compared to the prior studies. Bilateral pleural effusions are also suspected. Osseous str uctures are intact. IMPRESSION: Further increase in bibasilar foci of atelectasis or infiltrate with bilateral pleural effusions. Reported By:
[2017-08-13 06:55] LABS: ALANINE AMINOTRANSFERASE 14 Units/L (12-78); ALBUMIN 2.7 g/dL (3.4-5.0); ALKALINE PHOSPHATASE 90 Units/L (46-116); ASPARTATE AMINO TRANSFERASE 14 Units/L (15-37); BLOOD UREA NITROGEN 77 mg/dL (7-18); CALCIUM 8.9 mg/dL (8.5-10.1); CARBON DIOXIDE 29.4 mmol/L (21-32); CHLORIDE 103 mmol/L (98-107); COR CA(FOR HYPOALB) 9.9 mg/dL (8.5-10.1); CREATININE 1.72 mg/dL (0.55-1.02); SODIUM 141 mmol/L (136-145); TOTAL PROTEIN 6.1 g/dL (6.4-8.2); eGFR BLACK RACES 37 (>60); eGFR NON BLACK RACES 30 (>60)
[2017-08-13 07:02] LABS: BAND NEUTROPHILS % 4 % (0-10); PLATELET MORPHOLOGY COMMENT NORMAL (NORMAL)
[2017-08-13 07:03] LABS: HYPOCHROMASIA SLIGHT
[2017-08-13] MEDS: XOPENEX 1.25 MG/3 ML NEBULE NEB SCH (09:13)
[2017-08-13] MEDS: ALBUMIN HUMAN 25%- 100ML 100 ML IV SCH (09:18)
[2017-08-13] MEDS: CARDIZEM TAB 30 MG PLAIN PO SCH (09:18)
[2017-08-13] MEDS: SYNTHROID 75 mcg TAB PO SCH (09:18)
[2017-08-13] MEDS: MOBIC TAB 15 MG PO SCH (09:19)
[2017-08-13] MEDS: EFFEXOR TAB 75 MG (BID DOSING) PO SCH (09:19)
[2017-08-13] MEDS: IMURAN PO SCH (09:19)
[2017-08-13] MEDS: HEMOCYTE-PLUS PO SCH (09:19)
[2017-08-13] MEDS: PREDNISONE TAB 20 MG PO SCH (09:19)
[2017-08-13] MEDS: XARELTO PO SCH (09:20)
[2017-08-13] MEDS: VITAMIN D3 PO SCH (09:20)
[2017-08-13] MEDS: ROCEPHIN 1 GM IV PREMIX 1 GM/50 ML IV.SOLN. IV SCH (09:20)
[2017-08-13] MEDS: PROTONIX TAB 40 MG PO SCH (09:20)
[2017-08-13] MEDS: VANCOMYCIN HCL 500 MG VIAL 750 MG in D5W 250 ML IV 250 ML IV SCH (09:20)
[2017-08-13] MEDS: PROCALAMINE 3 % 1,000 ML IV SCH (10:55)
[2017-08-13] MEDS ORDERED: VERSED 100 MG in NS 100 ML IV 80 ML IV PRN (18:00)
[2017-08-13] MEDS ORDERED: MORPHINE SULFATE PCA 30 MG IVP SCH (18:00)
[2017-08-13] MEDS ORDERED: ISOPTO ATROPINE SL PRN (18:25)
[2017-08-13 22:49] VITALS: BP 94/65
== END 2017-08-13 23:20 | disposition expired | DRG 314 ==
LOC: ER 09:19 → MED/SURG 13:59 → OBSVTOIN 08-05 02:00 → ICU 08-05 02:03 → MED/SURG 08-05 02:56 → ICU 08-05 02:57
PROVIDERS: ADMIT Internal Medicine; ATTEND Internal Medicine
DX: I95.89 Other hypotension (principal); I48.91 Unspecified atrial fibrillation; I50.41 Acute combined systolic (congestive) and diastolic (congestive) heart failure; J15.1 Pneumonia due to Pseudomonas; J15.5 Pneumonia due to Escherichia coli; L03.113 Cellulitis of right upper limb; J44.1 Chronic obstructive pulmonary disease with (acute) exacerbation; E03.8 Other specified hypothyroidism; R53.1 Weakness; M54.2 Cervicalgia; M25.511 Pain in right shoulder; M54.89 Other dorsalgia; R06.02 Shortness of breath; R07.89 Other chest pain; W18.39XA Other fall on same level, initial encounter; R40.4 Transient alteration of awareness; D50.8 Other iron deficiency anemias; F33.8 Other recurrent depressive disorders; Z66 Do not resuscitate; B95.61 Methicillin susceptible Staphylococcus aureus infection as the cause of diseases classified elsewhere; R25.8 Other abnormal involuntary movements; I46.9 Cardiac arrest, cause unspecified
CPT/HCPCS: 36415; 36600; 70450; 71045; 72125; 72128; 72131; 73030; 73070; 80053; 80202; 81001; 82550; 82553; 82565; 82803; 83735; 83880; 84484; 85025; 87070; 87075; 87077; 87186; 87205; 93005; 93010; 93306; 94640; 94760; 96365; 99284; A4222; B5200; P9047; Q0177; G0378; J0696; J1160; J1940; J1956; J2270; J2271; J3370; J3480; J3490; J7506